=== PATIENT | female | born 1945 | race African-American/Black ===

== ENCOUNTER → 2016-10-15 | Outpatient (CLI) | payer OTHER, MEDICAID ==
[~2016-10-15] MED LIST: ACYCLOVIR800 MG PO; AMIODARONE HCL400 MG PO; APAP325 MG PO; ASPIR-LOW81 MG PO; CALCIUM 500 +1 EAC1 PO; CIPRO500 MG PO; CORDARONE150 MG/3 M PO; CORDARONE200 MG PO; COUMADIN3 M1 PO; DAILY VITAMINS1 TAB PO; DOCUSATE100 MG PO; DONNATAL1 TAB PO; ERGOCALCIFER50000 IU PO; FLEXERIL5 MG PO; HYDROCODONE BIT1 T11 PO; LASIX20 MG PO; LASIX40 MG PO; LEVAQUIN750 M1 PO; LIPITOR20 MG PO; LISINOPRIL1 GM MC; LISINOPRIL10 M1 PO; LISINOPRIL10 MG PO; LOPRESSOR25 MG PO; MUCINEX DM 30/61 TAB PO; MUCINEX ER600 MG PO; NASONEX0.05 MG/AC NAS; NORVASC5 MG PO; NOVOLOG 70/30 M10 ML SC; OYSTER SHELL CA1 TAB PO; PRAVACHOL40 MG PO; PREDNISONE10 MG PO; PRILOSEC20 MG PO; PROAIR HFA0.09 MG/AC INH; PROAIR HFA8.5 GM INH; PROTONIX40 MG PO; QVAR 80MCG/INH7.3 G1 INH; ROXICODONE5 MG PO; SPIRIVA RESPIMAT4 G1 IH; SPIRIVA18 MCG PO; STERAPRED DS10 MG PO; STOMACH PILL PO; SYMBICORT1 AE1 INH; VENTOLIN 02.5 MG/3 M INH; VENTOLIN H0.09 MG/AC INH; VICODIN 500 MG-1 TAB PO; VITAMIN D50000 I3 PO
== END | disposition home or self-care (01) ==
LOC: RAD 15:57
DX: I11.0 Hypertensive heart disease with heart failure (principal); I50.30 Unspecified diastolic (congestive) heart failure; R06.02 Shortness of breath; R60.0 Localized edema; R09.89 Other specified symptoms and signs involving the circulatory and respiratory systems; J43.9 Emphysema, unspecified; Z87.891 Personal history of nicotine dependence; I25.10 Atherosclerotic heart disease of native coronary artery without angina pectoris

== ENCOUNTER → 2016-10-25 | Outpatient (CLI) | payer OTHER, MEDICAID ==
--- NOTE | ~2016-10-25 | PF ---
[place], [place] PULMONARY FUNCTION TEST [id number] UNIT #: [id number] ROOM: DOCTOR: CHAITANYA HOOKER MD,ANGELIKA BIRTHDATE: [birth year] DOS: 10/25/2016 PULMONARY FUNCTION TEST The test was ordered by Tevin. HISTORY: The patient was recorded as 70 years old, outpatient, -G[place]ian female, height of 64 inches, weight of 180 pounds, BMI 30.8. The patient was noted with history of COPD and amiodarone treatment. Respiratory symptoms described dyspnea with exertion, nonproductive cough and frequent wheezing. 50 years a pack of tobacco use noted 1 pack of cigarettes per day that was discontinued 3 years ago. SPIROMETRY: The FVC was recorded 1.32 liters as 58% of the predicted value that was moderate to severely decreased. The FEV1 was recorded at 0.53 liters, 30% of predicted value, severely decreased. Partial improvement occurred post-bronchodilator test which would not be considered clinical improvement in the postbronchodilator test. The ratio of FEV1/FVC were recorded 42%. Flow volume loop suggestive of severe obstructive airway pattern. The patient could not perform the lung testing with the plethysmography with inability to follow the instructions for the test. The patient's lung diffusion recorded 17% without correction of carbon monoxide. Hemoglobin value markedly decreased. FINAL IMPRESSION: The test was noted with findings of COPD for this patient with severe reduction of the lung diffusion may be related to emphysema or other connective tissue disorder, other etiologies to be considered with clinical correlation advised. ANGELIKA TAVARES MD CM:PFREPORT:PULMONARY FUNCTION TEST 1221 [id number] ANGELIKA HOOKER MD
== END | disposition home or self-care (01) ==
LOC: CP 10:19
DX: J44.9 Chronic obstructive pulmonary disease, unspecified (principal); Z79.899 Other long term (current) drug therapy

== ENCOUNTER 2016-10-28 19:47 | Inpatient (IN) | payer OTHER, MEDICAID ==
[~2016-10-28] VITALS: Ht 162.5 cm; Wt 81.8 kg
--- NOTE | ~2016-10-28 | CON ---
[place], [place] REPORT OF CONSULTATION [id number] UNIT #: [id number] ROOM: 405 DOCTOR: SHILOH ECHOLS MD BIRTHDATE: [birth year] DOS: 10/29/2016 HISTORY OF PRESENT ILLNESS: This is a 70-year-old -[place] woman with a history of coronary artery disease and aortic valve stenosis. She had multivessel CABG and aortic valve replacement with a bioprosthetic valve in 2013. She also has significant COPD and had quit smoking about 5 years ago. She has diastolic heart failure, which is chronic, essential hypertension, GERD, hiatus hernia, hyperlipidemia, chronic anemia, and morbid obesity. She has never had a stroke, cancer or diabetes mellitus. She has chronic shortness of breath and uses oxygen all the time. In the last few weeks, her breathing had gotten worse. She had dose of furosemide was increased because of an increasing swelling of the legs, but has continued to deteriorate, so she was sent here by her primary care physician. She has not had any palpitations, chest pain or heaviness in the chest. There has not been any dizziness or loss of consciousness. Swelling in the legs is chronic, but has gotten worse recently. She has a very little cough. No fever or chills. She has difficulty breathing at night because of COPD. HOME MEDICATIONS: Include ProAir HFA, Symbicort, vitamin D, ferrous sulfate 325 mg daily, furosemide 20 mg daily, lisinopril 20 b.i.d., amiodarone 200 mg daily for atrial fibrillation, metoprolol 50 mg b.i.d., multivitamins, omeprazole 20 mg daily and Spiriva inhaler. PHYSICAL EXAMINATION: GENERAL: This reveals the patient who has oxygen on, she is very tachypneic and seemed to be exhausted. She is using accessory muscles of respiration. No fever or chills. There is no thyromegaly or finger clubbing. VITAL SIGNS: Pulse is regular at 60 beats per minute, blood pressure 110/50. NECK: JVP is normal. AJR is negative. No bruit in the neck is audible. CARDIOVASCULAR: Cardiac auscultation reveals grade 2/6 systolic murmur over the aortic area, it peaks early and second heart sound is easily appreciated. There are no murmurs over the apex. EXTREMITIES: She has 3+ bilateral pedal edema and 2+ pretibial edema. RESPIRATIONS: She has oxygen on and is tachypneic. Auscultation reveals a moderately diminished breath sounds with expiratory wheezes and prolonged expiratory phase. LABORATORY DATA: Chest x-ray demonstrated normal heart size and there appears to be left pleural effusion. No obvious pulmonary edema was identified. An ECG showed sinus bradycardia at 54 beats per minute and flattened T waves in chest leads. On admission, BUN was 29, creatinine 1.75, GFR was 35 mL/min. Potassium 4.1, magnesium 2.3. Serum albumin 3.5 g/dL. IMPRESSION: 1. Severe edema of the lower extremities. It is difficult to ascertain what [place], [place] REPORT OF CONSULTATION NAME: JEN GAN UNIT #: [id number] ROOM: [facility] DOCTOR: SHILOH ECHOLS MD BIRTHDATE: [birth year] actually is causing her edema. Her jugular venous pressure is normal and chest x-ray do not show any obvious pulmonary edema. Her serum albumin is fairly decent. Part of the swelling is due to because her legs have dangling down and history of sitting most of the time, but she may have diastolic heart failure. 2. Chronic obstructive pulmonary disease. This seems to be the main reason for her worsening of shortness of breath. 3. Coronary artery disease. This is asymptomatic. 4. Bioprosthetic aortic valve seems to be functioning normally, clinically at least. RECOMMENDATIONS: 1. I think larger dose of furosemide should be administered, while monitoring renal function and kidney function. 2. COPD treatment should be aggressive and she probably requires some steroid therapy. I thank you for this consult. SHILOH ECHOLS MD CM:CONSTR:REPORT OF CONSULTATION 1300 10/29/16 2156 interface
--- NOTE | ~2016-10-28 | PR ---
[place], [place] PROGRESS NOTE NAME: JEN GAN [facility] #: [id number] UNIT #: [id number] ROOM: 405 DOCTOR: WILY DICKERSON MD BIRTHDATE: [birth year] DOS: 11/02/2016 SUBJECTIVE: The patient was seen by Dr. Mejia yesterday. The patient appears to be hemodynamically stable. Blood pressure is stable. She is using 2 liters of oxygen now. Urine output is positive 1570 today. NECK: Supple, no elevated JVD. LUNGS: Diminished breath sounds. HEART: Sounds are regular. ABDOMEN: Obese. EXTREMITIES: Positive edema. LABORATORY DATA: Hemoglobin 10.6, hematocrit 35.8, BUN and creatinine is 36 and 1.6. IMPRESSION: The patient with probable diastolic heart failure. The patient seen by Dr. Mejia. Cardiac status appears to be stable. PLAN: Continue the present medications, but she did have strict I's and O's and ____ negative balance. Diuretic change has been documented and recommended by Dr. Mejia. The patient has cardiomyopathy also. The patient is already on atorvastatin, amiodarone, ondansetron. Continue those care, still has significant edema, diabetes mellitus, coronary artery disease stable, lower extremities negative for DVT. Continue diuretics with probable fluid restriction. WILY DICKERSON MD CM:PNTRANS 0723 0823 WILY DICKERSON MD 11/02/16 0824 interface
--- NOTE | ~2016-10-28 | PR ---
[place], [place] PROGRESS NOTE NAME: JEN GAN [facility] #: [id number] UNIT #: [id number] ROOM: 405 DOCTOR: SHILOH ECHOLS MD BIRTHDATE: [birth year] DOS: 11/01/2016 SUBJECTIVE: This patient was admitted with severe edema, marked shortness of breath and she probably had diastolic heart failure. She has been diagnosed with using IV loop diuretic and has done well. She does not have any shortness of breath now, although she is wearing oxygen. No wheezing or cough. The swelling of the legs had pretty much disappeared. She has walked with much less shortness of breath. PHYSICAL EXAMINATION: GENERAL: The patient is very pleasant, alert. VITAL SIGNS: Pulse is 56, blood pressure 117/55. NECK: JVP is normal. LUNGS: Breath sounds are much better with a few expiratory wheezing, but expiratory phase is no longer prolonged. She has 1+ bilateral pedal edema, but no pretibial edema, which was quite substantial when she was admitted. LABORATORY DATA: Creatinine has come down to 1.66 from 1.76 on admission. IMPRESSION: 1. This patient probably had diastolic heart failure, which is well compensated chronic obstructive pulmonary disease is under control. 2. Coronary artery disease is fine. 3. She had a normal functioning bioprosthetic aortic valve. PLAN: From cardiac standpoint, she may be discharged home, and I would like to see her in the office in a week or so. I would prefer to go home on torsemide/Demadex 40 mg every morning and chem 6 should be done within the next week or so. SHILOH ECHOLS MD CM:PNTRANS 1157 [id number] SHILOH ECHOLS MD 11/01/16 2254 interface
--- NOTE | ~2016-10-28 | EKG ---
[place], [place] ELECTROCARDIOGRAM REPORT NAME: JEN GAN UNIT #: [id number] ROOM: 405 DOCTOR: SHILOH ECHOLS MD BIRTHDATE: [birth year] DOS: 10/28/2016 TIME: 2039 hours. Sinus bradycardia at 54 beats per minute. Low voltage T waves in chest leads. An abnormal ECG. No previous tracing is available for comparison. SHILOH ECHOLS MD CM:EKGRPT:ELECTROCARDIOGRAM REPORT 1232 1528 SHILOH ECHOLS MD
[2016-10-28 19:50] VITALS: BP 157/65
[2016-10-28 20:48] LABS: BILIRUBIN NEGATIVE (NEGATIVE); BLOOD NEGATIVE (NEGATIVE); CLARITY SL CLOUDY (CLEAR); COLOR YELLOW (YELLOW); GLUCOSE NEGATIVE (NEGATIVE); KETONE NEGATIVE (NEGATIVE); LEUKO ESTERASE TRACE (NEGATIVE); NITRITE NEGATIVE (NEGATIVE); PROTEIN TRACE (NEGATIVE)
[2016-10-28 20:48] LABS: BASO # 0.1 10*3/uL (0.0-0.1); BASO % 0.7 % (0.0-1.0); EOS # 0.8 10*3/uL (0.0-0.4); EOS % 7.8 % (1.0-4.0); HEMATOCRIT 36.3 % (37.0-47.0); HEMOGLOBIN 10.9 g/dl (12.0-16.0); LYMPH # 1.8 10*3/uL (1.3-4.4); LYMPH % 17.4 % (27.0-41.0); MEAN PLATELET VOLUME 9.6 fl (9.6-12.3); MONO # 1.1 10*3/uL (0.1-1.0); MONO % 10.8 % (3.0-9.0); NEUT # 6.4 10*3/uL (2.3-7.9); NEUT % 63.1 % (47.0-73.0); PLATELET COUNT AUTOMATED 242 10*3/uL (130-400); RED BLOOD COUNT 4.54 10*6/uL (4.10-5.10); RED CELL DISTRI WIDTH 15.4 % (0-14.5); WHITE BLOOD COUNT 10.2 10*3/uL (4.8-10.8)
[2016-10-28 20:56] LABS: BACTERIA 2+; RBC 0-2 rbc/hpf (0-2); URINE REFLEX COMMENT YES (NO)
[2016-10-28 21:02] LABS: PROTHROMBIN TIME 10.7 SECONDS (9.0-12.4)
[2016-10-28 21:06] LABS: ALBUMIN 3.5 gm/dl (3.1-4.5); ALKALINE PHOSPHATASE 74 U/L (45-117); BILIRUBIN, TOTAL 0.3 mg/dl (0.2-1.0); BUN 29 mg/dl (7-24); CARBON DIOXIDE 32 mmol/L (21-32); CHLORIDE 103 mmol/L (98-107); EST GLOM FILT AFRICAN AMERICAN 35 ml/min; GLUCOSE 99 mg/dL (65-99); MAGNESIUM 2.3 mg/dL (1.5-2.1); POTASSIUM 4.1 mmol/L (3.5-5.1); SGOT/AST 27 IU/L (3-35); SGPT/ALT 25 U/L (12-78); SODIUM 146 mmol/L (136-145); TOTAL PROTEIN 7.5 gm/dL (6.4-8.2)
[2016-10-28 21:08] LABS: TROPONIN I < 0.015 ng/ml (<0.045)
[2016-10-28 21:58] VITALS: BP 153/57
[2016-10-28 22:15] VITALS: BP 153/57
[2016-10-28] MEDS ORDERED: FEROSUL325 MG PO (22:36)
[2016-10-29] VITALS: BP 150/60
[2016-10-29 00:46] LABS: CKMB 0.6 ng/ml (0.5-3.6); CPK 105 U/L (26-192)
[2016-10-29 00:47] LABS: TROPONIN I < 0.015 ng/ml (<0.045)
[2016-10-29 06:38] LABS: BASO # 0.1 10*3/uL (0.0-0.1); BASO % 0.6 % (0.0-1.0); EOS # 0.8 10*3/uL (0.0-0.4); EOS % 8.2 % (1.0-4.0); HEMATOCRIT 34.9 % (37.0-47.0); HEMOGLOBIN 10.3 g/dl (12.0-16.0); IG # 0.1 10*3/uL (0.0-0.1); LYMPH # 1.9 10*3/uL (1.3-4.4); LYMPH % 19.3 % (27.0-41.0); MEAN CELL VOLUME 81.2 fl (81.0-99.0); MEAN CORPUSCULAR HGB CONC 29.5 g/dl (33.0-37.0); MEAN PLATELET VOLUME 10.2 fl (9.6-12.3); MONO # 1.2 10*3/uL (0.1-1.0); MONO % 11.7 % (3.0-9.0); NEUT # 5.9 10*3/uL (2.3-7.9); NEUT % 59.7 % (47.0-73.0); PLATELET COUNT AUTOMATED 255 10*3/uL (130-400); RED CELL DISTRI WIDTH 15.5 % (0-14.5); WHITE BLOOD COUNT 9.9 10*3/uL (4.8-10.8)
[2016-10-29 06:40] LABS: CKMB 0.5 ng/ml (0.5-3.6); CPK 97 U/L (26-192)
[2016-10-29 06:41] LABS: TROPONIN I < 0.015 ng/ml (<0.045)
[2016-10-29 06:45] LABS: HEMOGLOBIN A1c 6.8 % (4.8-5.6)
[2016-10-29 07:00] LABS: ALBUMIN 3.3 gm/dl (3.1-4.5); BILIRUBIN, TOTAL 0.4 mg/dl (0.2-1.0); FREE T4 1.31 ng/dl (0.76-1.46); MAGNESIUM 2.3 mg/dL (1.5-2.1); PHOSPHOROUS 3.9 mg/dL (2.5-4.9); POTASSIUM 3.7 mmol/L (3.5-5.1); TOTAL PROTEIN 7.2 gm/dL (6.4-8.2)
[2016-10-29 07:05] LABS: THYROID STIM HORMONE (HS) 2.43 uIU/ml (0.358-4.75)
[2016-10-29 07:20] LABS: PROTHROMBIN TIME 10.7 SECONDS (9.0-12.4)
[2016-10-29 07:46] LABS: VITAMIN D, 25-HYDROXY 32.2 ng/mL (30-100)
[2016-10-29 07:48] LABS: FOLIC ACID > 24.00 ng/mL (>5.38)
[2016-10-29 08:00] VITALS: BP 110/50
[2016-10-29 12:00] VITALS: BP 110/50
[2016-10-29 16:00] VITALS: BP 144/73
[2016-10-29 20:00] VITALS: BP 113/52
[2016-10-30] VITALS: BP 136/57
[2016-10-30 07:15] LABS: HEMATOCRIT 32.7 % (37.0-47.0); HEMOGLOBIN 9.8 g/dl (12.0-16.0); MEAN CELL VOLUME 79.4 fl (81.0-99.0); MEAN CORPUSCULAR HGB 23.8 pg (27.0-31.0); MEAN PLATELET VOLUME 9.8 fl (9.6-12.3); PLATELET COUNT AUTOMATED 241 10*3/uL (130-400); RED BLOOD COUNT 4.12 10*6/uL (4.10-5.10); RED CELL DISTRI WIDTH 15.4 % (0-14.5)
[2016-10-30 07:41] LABS: LYMPHOCYTE # 0.9 10*3/uL (1.3-4.4); MICROCYTOSIS SLIGHT; NEUTROPHIL # 8.1 10*3/uL (2.3-7.9); NEUTROPHILS 90 % (47-73); PLATELET SUFFICIENCY NORMAL (NORMAL); POLYCHROMASIA SLIGHT; TOTAL CELLS COUNTED 100 #CELLS
[2016-10-30 07:42] LABS: POTASSIUM 3.9 mmol/L (3.5-5.1)
[2016-10-30 08:00] VITALS: BP 118/52
[2016-10-30 12:00] VITALS: BP 120/60
[2016-10-30 16:00] VITALS: BP 114/51
[2016-10-30 20:00] VITALS: BP 117/50
[2016-10-31] VITALS: BP 114/66
[2016-10-31 06:15] LABS: BASO % 0.1 % (0.0-1.0); HEMATOCRIT 34.2 % (37.0-47.0); HEMOGLOBIN 10.2 g/dl (12.0-16.0); IG # 0.1 10*3/uL (0.0-0.1); LYMPH # 1.8 10*3/uL (1.3-4.4); MEAN CORPUSCULAR HGB 24.2 pg (27.0-31.0); MEAN CORPUSCULAR HGB CONC 29.8 g/dl (33.0-37.0); MEAN PLATELET VOLUME 9.6 fl (9.6-12.3); MONO # 1.4 10*3/uL (0.1-1.0); MONO % 10.3 % (3.0-9.0); NEUT # 10.6 10*3/uL (2.3-7.9); PLATELET COUNT AUTOMATED 254 10*3/uL (130-400); RED BLOOD COUNT 4.22 10*6/uL (4.10-5.10); RED CELL DISTRI WIDTH 15.6 % (0-14.5); WHITE BLOOD COUNT 13.9 10*3/uL (4.8-10.8)
[2016-10-31 06:38] LABS: POTASSIUM 3.5 mmol/L (3.5-5.1)
[2016-10-31 08:00] VITALS: BP 112/48
[2016-10-31 12:00] VITALS: BP 99/50
[2016-10-31 16:00] VITALS: BP 103/52
[2016-10-31 20:00] VITALS: BP 107/57
[2016-11-01] VITALS: BP 137/50
[2016-11-01 06:15] LABS: BASO # 0.1 10*3/uL (0.0-0.1); BASO % 0.5 % (0.0-1.0); EOS # 0.3 10*3/uL (0.0-0.4); EOS % 2.4 % (1.0-4.0); HEMATOCRIT 35.8 % (37.0-47.0); HEMOGLOBIN 10.6 g/dl (12.0-16.0); IG # 0.1 10*3/uL (0.0-0.1); LYMPH # 2.6 10*3/uL (1.3-4.4); LYMPH % 24.2 % (27.0-41.0); MEAN CELL VOLUME 81.4 fl (81.0-99.0); MEAN CORPUSCULAR HGB 24.1 pg (27.0-31.0); MEAN CORPUSCULAR HGB CONC 29.6 g/dl (33.0-37.0); MEAN PLATELET VOLUME 9.1 fl (9.6-12.3); MONO % 9.7 % (3.0-9.0); NEUT # 6.6 10*3/uL (2.3-7.9); NEUT % 62.7 % (47.0-73.0); PLATELET COUNT AUTOMATED 241 10*3/uL (130-400); RED CELL DISTRI WIDTH 15.8 % (0-14.5); WHITE BLOOD COUNT 10.5 10*3/uL (4.8-10.8)
[2016-11-01 08:00] VITALS: BP 117/55
[2016-11-01 12:00] VITALS: BP 133/66
[2016-11-01 16:00] VITALS: BP 121/55
[2016-11-01 20:00] VITALS: BP 112/59
[2016-11-02] VITALS: BP 129/57
[2016-11-02 07:46] LABS: POTASSIUM 3.8 mmol/L (3.5-5.1)
[2016-11-02 07:53] VITALS: BP 118/71
[2016-11-02 11:50] VITALS: BP 104/54
[2016-11-02 15:57] VITALS: BP 116/51
[2016-11-02 20:00] VITALS: BP 114/58
[2016-11-03] VITALS: BP 120/59
[2016-11-03 06:07] LABS: POTASSIUM 3.8 mmol/L (3.5-5.1)
[2016-11-03 08:00] VITALS: BP 104/50
[2016-11-03] MEDS ORDERED: FUROSEMIDE40 MG PO (09:40)
[2016-11-03] MEDS ORDERED: LOPRESSOR25 MG PO (09:40)
== END 2016-11-03 10:56 | disposition home or self-care (01) | DRG 291 ==
LOC: ED 19:47 → EDHOLD 21:30 → 4E 21:30
PROVIDERS: Emergency Medicine; Hospitalist; Internal Medicine; Student in an Organized Health Care Education/Training Program
DX: I11.0 Hypertensive heart disease with heart failure (principal); N17.0 Acute kidney failure with tubular necrosis; E87.0 Hyperosmolality and hypernatremia; J96.10 Chronic respiratory failure, unspecified whether with hypoxia or hypercapnia; E44.1 Mild protein-calorie malnutrition; J44.1 Chronic obstructive pulmonary disease with (acute) exacerbation; I50.33 Acute on chronic diastolic (congestive) heart failure; E11.65 Type 2 diabetes mellitus with hyperglycemia; K21.9 Gastro-esophageal reflux disease without esophagitis; E83.41 Hypermagnesemia; I25.10 Atherosclerotic heart disease of native coronary artery without angina pectoris; E78.5 Hyperlipidemia, unspecified; E66.9 Obesity, unspecified; Z95.2 Presence of prosthetic heart valve; Z87.891 Personal history of nicotine dependence; Z80.42 Family history of malignant neoplasm of prostate; Z83.79 Family history of other diseases of the digestive system; Z79.51 Long term (current) use of inhaled steroids; Z79.82 Long term (current) use of aspirin; Z79.899 Other long term (current) drug therapy; Z68.30 Body mass index [BMI] 30.0-30.9, adult

== ENCOUNTER → 2016-12-16 | Outpatient (CLI) | payer OTHER, MEDICAID ==
[~2016-12-16] MED LIST changes: +FEROSUL325 MG PO; +FUROSEMIDE40 MG PO
== END | disposition home or self-care (01) ==
LOC: CT 09:09
DX: M79.602 Pain in left arm (principal)

== ENCOUNTER 2017-10-13 15:24 | Inpatient (IN) | payer OTHER, MEDICAID ==
[~2017-10-13] VITALS: Ht 165.1 cm; Wt 75.7 kg
--- NOTE | ~2017-10-13 | PROC NOTE ---
[place], [place] PROCEDURE NOTE [id number] UNIT #: [id number] ROOM: 502 DOCTOR: DANIEL MCKEON BIRTHDATE: [birth year] DOS: 10/14/2017 MODIFIED BARIUM SWALLOW STUDY DICTATED BY: AKOSUA Lazar, student services rep clinician and Daniel Morse MA, CCC, DENTURES LAB TECHNICIAN REFERRING PHYSICIAN: Dr. Acevedo. RADIOLOGIST: Dr. Hudson. PREVIOUS MEDICAL HISTORY: The patient is a 71-year-old female who was admitted to [facility] with weakness and shortness of breath on 10/13/2017. She was diagnosed with bilateral pneumonia. The patient's past medical history includes GERD, hiatal hernia, HTN, COPD, HLD, CHF and CKD. The patient was referred for an MBSS to rule out aspiration pneumonia. This date, patient denied difficulty swallowing. The patient did not endorse coughing or choking while eating. She noted she occasionally has emesis after eating. The patient endorsed reflux and noted she does not take her reflux medication consistently. GENERAL COMMENTS: The patient was seated upright in a wheelchair, awake, alert, and cooperative throughout this evaluation. ORAL MECHANISM/MOTOR SPEECH EXAM: Symmetry, strength, range of motion and accuracy of movement of upper/lower face, lips, jaw, tongue and palate were within functional limits. Coordination was mildly impaired; however, remained within functional limits. The patient with no upper dentition and minimal lower dentition. Speech comprehensibility was 100%. The patient presents with baseline cough. MBSS METHODS: This exam was viewed in the lateral plane. The patient self fed the following barium impregnated consistencies: single sips of thin liquids via straw x 2, consecutive sips of thin liquids via straw x 1, teaspoons of pureed x 2 and bites of coarse solids x 1. ORAL PHASE: Adequate bolus acceptance with no anterior loss. Mastication was prolonged, but adequate. AP bolus transit was timely and adequate. No oral residue appreciated. PHARYNGEAL PHASE: Initiation of the swallow response was mildly delayed. Higher laryngeal elevation was adequate in the superior and anterior planes with subsequent adequate epiglottic retroflexion. Base of tongue to posterior pharyngeal wall contact was adequate. No aspiration or penetration was observed with any consistency. Trace residue remained in the valleculae after the swallow; however, this cleared with subsequent swallows. UPPER ESOPHAGEAL SPHINCTER: Unremarkable. IMPRESSION: The patient presents with mild oropharyngeal dysphagia as marked by [place], [place] PROCEDURE NOTE NAME: JEN GAN UNIT #: [id number] ROOM: [facility] DOCTOR: DANIEL MCKEON BIRTHDATE: [birth year] slow mastication and mildly delayed swallow initiation; however swallow is within functional limits. No aspiration/penetration across consistencies. Due to dentition, a diet of mechanical soft foods with thin liquids is recommended correct. RECOMMENDATIONS: 1. Recommend diet of mechanical soft foods with thin liquids. 2. Aspiration precautions, fully upright, awake and alert for all p.o., small bites/sips, oral care at least b.i.d. 3. GERD management. Findings and recommendations were reviewed and discussed with the patient, patient's granddaughter and nurse. All parties verbalized understanding. PLAN OF CARE: No further speech language pathology followup is indicated at this time. Should further concerns of dysphagia arise, please reconsult this service. Thank you for consulting. Please contact the DENTURES LAB TECHNICIAN Department at [phone] with any questions/concerns. Daniel Morse CM:PROCNOTE:PROCEDURE NOTE 1021 1159 DANIEL MCKEON
--- NOTE | ~2017-10-13 | PR ---
[place], [place] PROGRESS NOTE [id number] UNIT #: [id number] ROOM: [facility] DOCTOR: WILY DICKERSON MD BIRTHDATE: [birth year] DOS: 10/18/[address] Mejia[address]. Hidalgo was video conference specialist for the weekend. REASON FOR CONSULTATION: Consultation was consulted for bradycardia. HISTORY OF PRESENT ILLNESS: The patient's beta-blockers have been discontinued. The patient has history of bypass surgery and valve replacement in the past. After stopping the beta-blockers, the patient has not been bradycardic. PHYSICAL EXAMINATION: VITAL SIGNS: Heart rate is 69 and blood pressure is 137/67. The patient continues to be on amiodarone. HEENT: Unremarkable. NECK: Supple. No JVD. LUNGS: Diminished breath sounds. HEART: Sounds are regular. ABDOMEN: Soft. Nontender. NEUROLOGIC: Appears to be stable. LABORATORY DATA: Sodium 143 and potassium 3.2. BUN is 32 and creatinine is 1.3. Hemoglobin 10.8 and hematocrit 35.8. A CT scan showed cardiomegaly, emphysematous changes, and hiatal hernia. IMPRESSION: 1. Bilateral pneumonia. 2. Sinus bradycardia. 3. Chronic obstructive pulmonary disease. 4. Acute on chronic respiratory failure. 5. Known history of coronary artery bypass surgery. RECOMMENDATIONS: Agree with continuing amiodarone and holding off on the beta-blockers at this point. Continue the present medication. Follow up with Dr. Mejia. [place], [place] PROGRESS NOTE NAME: [facility] [id number] UNIT #: [id number] ROOM: [facility] DOCTOR: WILY DICKERSON MD BIRTHDATE: [birth year] WILY DICKERSON MD CM:PNTRANS 0730 0757 WILY DICKERSNO MD 10/18/17 0756 interface
[~2017-10-13 15:24] MED LIST changes: -PROAIR HFA0.09 MG/AC INH
[2017-10-13 15:25] VITALS: BP 136/70
[2017-10-13 16:17] LABS: BASO % 0.4 % (0.0-1.0); EOS # 0.2 10*3/uL (0.0-0.4); EOS % 1.7 % (1.0-4.0); HEMATOCRIT 39.7 % (37.0-47.0); HEMOGLOBIN 11.9 g/dl (12.0-16.0); LYMPH # 1.7 10*3/uL (1.3-4.4); LYMPH % 17.1 % (27.0-41.0); MEAN CELL VOLUME 77.2 fl (81.0-99.0); MEAN CORPUSCULAR HGB 23.2 pg (27.0-31.0); MEAN PLATELET VOLUME 9.1 fl (9.6-12.3); MONO # 1.1 10*3/uL (0.1-1.0); MONO % 10.6 % (3.0-9.0); NEUT # 6.9 10*3/uL (2.3-7.9); NEUT % 69.7 % (47.0-73.0); PLATELET COUNT AUTOMATED 277 10*3/uL (130-400); RED BLOOD COUNT 5.14 10*6/uL (4.10-5.10); RED CELL DISTRI WIDTH 16.9 % (0-14.5); WHITE BLOOD COUNT 9.9 10*3/uL (4.8-10.8)
[2017-10-13] MEDS ORDERED: METOPROLOL SUCC50 M1 PO (16:19)
[2017-10-13] MEDS ORDERED: LASIX20 MG PO (16:19)
[2017-10-13 16:26] LABS: ACT PARTIAL THROMBO TIME 25.1 SECONDS (20.8-31.5); INTERNATIONAL NORM RATIO 1.1 (2.0-3.5)
[2017-10-13 16:41] LABS: CREATININE 1.3 mg/dL (0.55-1.02); POTASSIUM 4.2 mmol/L (3.5-5.1)
[2017-10-13 16:45] LABS: TROPONIN I 0.029 ng/ml (<0.045)
[2017-10-13 16:48] LABS: THYROID STIM HORMONE (HS) 1.6 uIU/ml (0.358-4.75)
[2017-10-13 18:00] VITALS: BP 127/64
[2017-10-13] MEDS ORDERED: METOPROLOL TART50 M1 PO (18:23)
[2017-10-13] MEDS ORDERED: LISINOPRIL20 MG PO (18:23)
[2017-10-13] MEDS ORDERED: VITAMIN D-32000 UNIT PO (18:24)
[2017-10-13] MEDS ORDERED: ACULAR 3ML 3 ML5 ML OPH (18:34)
[2017-10-13 20:00] VITALS: BP 155/69
[2017-10-14] VITALS (8 sets, daily range): BP systolic 109–158; BP diastolic 49–85
[2017-10-14 06:25] LABS: BASO % 0.4 % (0.0-1.0); EOS # 0.2 10*3/uL (0.0-0.4); HEMATOCRIT 37.3 % (37.0-47.0); HEMOGLOBIN 11.3 g/dl (12.0-16.0); LYMPH # 1.8 10*3/uL (1.3-4.4); LYMPH % 17.7 % (27.0-41.0); MEAN CELL VOLUME 77.5 fl (81.0-99.0); MEAN CORPUSCULAR HGB 23.5 pg (27.0-31.0); MEAN CORPUSCULAR HGB CONC 30.3 g/dl (33.0-37.0); MEAN PLATELET VOLUME 9.8 fl (9.6-12.3); MONO # 1.2 10*3/uL (0.1-1.0); MONO % 11.6 % (3.0-9.0); NEUT # 7.1 10*3/uL (2.3-7.9); NEUT % 67.9 % (47.0-73.0); PLATELET COUNT AUTOMATED 251 10*3/uL (130-400); RED BLOOD COUNT 4.81 10*6/uL (4.10-5.10); RED CELL DISTRI WIDTH 16.7 % (0-14.5); WHITE BLOOD COUNT 10.4 10*3/uL (4.8-10.8)
[2017-10-14 07:01] LABS: ALBUMIN 2.8 gm/dl (3.1-4.5); CREATININE 1.39 mg/dL (0.55-1.02); PHOSPHOROUS 3.5 mg/dL (2.5-4.9); POTASSIUM 4.2 mmol/L (3.5-5.1); TOTAL PROTEIN 7.6 gm/dL (6.4-8.2)
[2017-10-15] VITALS: BP 130/69
[2017-10-15 07:50] LABS: BASO % 0.1 % (0.0-1.0); HEMATOCRIT 35.7 % (37.0-47.0); HEMOGLOBIN 10.9 g/dl (12.0-16.0); LYMPH # 1.1 10*3/uL (1.3-4.4); LYMPH % 13.3 % (27.0-41.0); MEAN CELL VOLUME 76.4 fl (81.0-99.0); MEAN CORPUSCULAR HGB 23.3 pg (27.0-31.0); MEAN CORPUSCULAR HGB CONC 30.5 g/dl (33.0-37.0); MEAN PLATELET VOLUME 9.8 fl (9.6-12.3); MONO # 0.7 10*3/uL (0.1-1.0); MONO % 8.7 % (3.0-9.0); NEUT # 6.2 10*3/uL (2.3-7.9); NEUT % 77.4 % (47.0-73.0); PLATELET COUNT AUTOMATED 251 10*3/uL (130-400); RED BLOOD COUNT 4.67 10*6/uL (4.10-5.10); RED CELL DISTRI WIDTH 16.7 % (0-14.5)
[2017-10-15 08:00] VITALS: BP 114/52
[2017-10-15 08:11] LABS: CREATININE 1.45 mg/dL (0.55-1.02); POTASSIUM 3.8 mmol/L (3.5-5.1)
[2017-10-15 12:00] VITALS: BP 139/64
[2017-10-15 16:00] VITALS: BP 127/59
[2017-10-15 20:00] VITALS: BP 124/95
[2017-10-16] VITALS: BP 123/73
[2017-10-16 08:00] VITALS: BP 146/59
[2017-10-16 13:00] VITALS: BP 114/54
[2017-10-16 16:00] VITALS: BP 134/62
[2017-10-16 20:00] VITALS: BP 131/58
[2017-10-17] VITALS: BP 131/61
[2017-10-17 06:42] LABS: BASO % 0.1 % (0.0-1.0); HEMATOCRIT 35.8 % (37.0-47.0); HEMOGLOBIN 10.8 g/dl (12.0-16.0); LYMPH # 1.6 10*3/uL (1.3-4.4); LYMPH % 12.8 % (27.0-41.0); MEAN CELL VOLUME 76.7 fl (81.0-99.0); MEAN CORPUSCULAR HGB 23.1 pg (27.0-31.0); MEAN CORPUSCULAR HGB CONC 30.2 g/dl (33.0-37.0); MEAN PLATELET VOLUME 9.1 fl (9.6-12.3); MONO # 1.4 10*3/uL (0.1-1.0); MONO % 10.8 % (3.0-9.0); NEUT # 9.7 10*3/uL (2.3-7.9); NEUT % 75.8 % (47.0-73.0); PLATELET COUNT AUTOMATED 235 10*3/uL (130-400); RED BLOOD COUNT 4.67 10*6/uL (4.10-5.10); RED CELL DISTRI WIDTH 17.3 % (0-14.5); WHITE BLOOD COUNT 12.7 10*3/uL (4.8-10.8)
[2017-10-17 06:47] LABS: CREATININE 1.38 mg/dL (0.55-1.02); POTASSIUM 3.2 mmol/L (3.5-5.1)
[2017-10-17 08:00] VITALS: BP 136/50
[2017-10-17 12:00] VITALS: BP 136/52
[2017-10-17 16:00] VITALS: BP 139/59
[2017-10-17 20:00] VITALS: BP 129/56
[2017-10-18] VITALS: BP 137/67
[2017-10-18 08:00] VITALS: BP 119/52
[2017-10-18 12:00] VITALS: BP 135/66
[2017-10-18] MEDS ORDERED: DOXYCYCLINE100 M3 PO (13:28)
== END 2017-10-18 15:37 | disposition home health service (06) | DRG 193 ==
LOC: ED 15:24 → 5E 16:51 → EDHOLD 16:51 → 5E 17:42
PROVIDERS: Emergency Medicine; Family Medicine; Internal Medicine
PROC: BD1BYZZ Fluoroscopy of Mouth/Oropharynx using Other Contrast (ICD-10-PCS; principal; 2017-10-14)
PROC: BD11YZZ Fluoroscopy of Esophagus using Other Contrast (ICD-10-PCS; principal; 2017-10-14)
DX: J18.1 Lobar pneumonia, unspecified organism (principal); G93.41 Metabolic encephalopathy; J96.21 Acute and chronic respiratory failure with hypoxia; E44.0 Moderate protein-calorie malnutrition; I38 Endocarditis, valve unspecified; E11.22 Type 2 diabetes mellitus with diabetic chronic kidney disease; E87.8 Other disorders of electrolyte and fluid balance, not elsewhere classified; E83.41 Hypermagnesemia; I50.32 Chronic diastolic (congestive) heart failure; J44.1 Chronic obstructive pulmonary disease with (acute) exacerbation; I13.0 Hypertensive heart and chronic kidney disease with heart failure and stage 1 through stage 4 chronic kidney disease, or unspecified chronic kidney disease; J44.0 Chronic obstructive pulmonary disease with (acute) lower respiratory infection; N18.3 Chronic kidney disease, stage 3 (moderate); K21.9 Gastro-esophageal reflux disease without esophagitis; I25.10 Atherosclerotic heart disease of native coronary artery without angina pectoris; E66.9 Obesity, unspecified; R00.1 Bradycardia, unspecified; D50.9 Iron deficiency anemia, unspecified; F32.9 Major depressive disorder, single episode, unspecified; E78.2 Mixed hyperlipidemia; D72.810 Lymphocytopenia; Z68.26 Body mass index [BMI] 26.0-26.9, adult; Z83.79 Family history of other diseases of the digestive system; Z87.891 Personal history of nicotine dependence; K44.9 Diaphragmatic hernia without obstruction or gangrene; Z95.1 Presence of aortocoronary bypass graft; Z80.42 Family history of malignant neoplasm of prostate; Z88.5 Allergy status to narcotic agent; Z99.81 Dependence on supplemental oxygen

== ENCOUNTER 2017-10-20 12:07 | Inpatient (IN) | payer OTHER, MEDICAID ==
[~2017-10-20] VITALS: Ht 165.1 cm; Wt 75.0 kg
--- NOTE | ~2017-10-20 | PR ---
[place], [place] PROGRESS NOTE [id number] UNIT #: [id number] ROOM: 408 DOCTOR: WILY DICKERSON MD BIRTHDATE: [birth year] DOS: 10/25/2017 SUBJECTIVE: The patient is seen and evaluated today, awake, responsive and no nausea, no vomiting, diarrhea, lightheadedness or dizziness. He is in sinus rhythm. Hemodynamically stable. Echocardiogram read by Dr. Mejia showed an excellent ejection fraction, normal functioning bioprosthetic aortic valve. OBJECTIVE: VITAL SIGNS: Blood pressure today is 140/60, heart rate is 63. He is afebrile. HEENT: Unremarkable. NECK: Supple, no JVD. LUNGS: Diminished breath sounds. HEART: Sounds are regular. ABDOMEN: Soft, nontender. NEUROLOGIC: Stable. LABORATORY DATA: Significant improvement as per HPI, 6-8 systems reviewed. Last electrolytes are normal. Creatinine is normal, hemoglobin and hematocrit within 10.6 and 34.3. IMPRESSION AND PLAN: Acute on chronic respiratory failure, unable to ambulate, leukocytosis, neutrophilia, lymphopenia, hyperchloremia, acute on chronic kidney failure, COPD, coronary artery disease at the jena arteries, ____ type 2 myocardial infarction with mildly elevated troponin. Continue recommendation, continue the steroids, vancomycin, Zosyn, and Levaquin and the patient has been started back on the Lasix, breathing is significantly improved and monitor the renal function closely. Dr. Arnold is closely following. Elevated white cell count is normal of 11.6 and we will follow up. WILY DICKERSON MD CM:PNTRANS 0728 WILY DICKERSON MD 10/25/1715 interface
--- NOTE | ~2017-10-20 | PROC NOTE ---
[place], [place] PROCEDURE NOTE NAME: [id number] UNIT #: [id number] ROOM: 408 DOCTOR: CHAITANYA HOOKER MD,ANGELIKA BIRTHDATE: [birth year] DOS: 10/25/2017 PREOPERATIVE DIAGNOSES: Bilateral pulmonary infiltration noted with interstitial lung disease as well with non-specific interstitial pneumonitis, possibility of a cellular component. POSTOPERATIVE DIAGNOSES: Bilateral pulmonary infiltration noted with interstitial lung disease as well with non-specific interstitial pneumonitis, possibility of a cellular component. PROCEDURE DESCRIPTION: Informed consent obtained with the patient. She was brought to the OR and placed in supine position. Conscious sedation administered by the Anesthesia Department. After achieving proper sedation, airway introduced into the mouth. Bronchoscope advanced to the airway into laryngeal area. Epiglottis and vocal cord seen. Vocal cord moving symmetrically with movements. Bronchoscope advanced to vocal and tracheal lumen. A small amount of scattered secretions present in the tracheal lumen, which was suctioned out. Right upper, right middle, right lower, left upper, lingular lower bronchi were all examined. It does not show any blood stick lesions or significant secretions. The BAL specimen was obtained for this patient from the superior segment of the right lower lobe without any difficulty. Additional bronchial washing taken from the endobronchial tree bilaterally was sent to the lab as well. The BAL specimen sent for cell with the differentials. Procedure well tolerated without any complications. ANGELIKA TAVARES MD CM:PROCNOTE:PROCEDURE NOTE 1057 0010 ANGELIKA HOOKER MD
--- NOTE | ~2017-10-20 | PR ---
[place], [place] PROGRESS NOTE NAME: JEN GAN UNIT #: [id number] ROOM: 408 DOCTOR: ANGELIKA DAIGLE MD BIRTHDATE: [birth year] DOS: 10/22/2017 SUBJECTIVE: The patient noted comfortable at this time without any acute distress, resting comfortably on the bed, has not been reported as symptoms of any chest pain or abdominal pain. The patient has not been noted any symptoms of hemoptysis, coughing, shortness of breath, all the symptoms have been improving for the patient from yesterday. She has been continued on the bronchodilators as well as oxygen supplementation. Solu-Medrol was continued at 40 mg b.i.d. dosing. OBJECTIVE: VITAL SIGNS: Normal temperature, respiratory rate 20, heart rate 90, blood pressure 130/60, pulse oxygen saturation on 4 liters nasal cannula 96% saturation. HEENT: No acute change. NECK: Supple. CARDIOVASCULAR: S1, S2 audible. LUNGS: Scattered expiratory wheezing. There were no crackles. ABDOMEN: Soft, nontender. Bowel sounds present. EXTREMITIES: Without any acute edema. LABORATORY DATA: BMP for this patient, BUN 37, creatinine 1.48, glucose 153. The CBC of the patient, hemoglobin 10.4, hematocrit was 34 with normal WBC count and platelet count. Blood culture, no bacterial growth from the 10/20/2017. IMPRESSION: 1. The patient who has been currently noted with an acute on chronic hypoxic respiratory failure, acute exacerbation of chronic obstructive pulmonary disease that has been improving. 2. ____ findings are noted on the CT scan of the chest at this time, etiology unclear. 3. Resolving acute kidney injury for the patient with chronic kidney disease. 4. Anemia. PLAN OF TREATMENT: Followup of the workup of the patient with connective tissue disorder as ordered. Continue current dose of Solu-Medrol, bronchodilators and oxygen supplementation and other treatments. The EGD for the patient was not noted with any evidence of active bleeding, which was performed yesterday. [place], [place] PROGRESS NOTE NAME: JEN GAN UNIT #: [id number] ROOM: 408 DOCTOR: ANGELIKA DAIGLE MD BIRTHDATE: [birth year] ANGELIKA TAVARES MD CM:PNTRANS 1433 011 ANGELIKA HOOKER MD 10/23/17 0111 interface
--- NOTE | ~2017-10-20 | EKG ---
[place], [place] ELECTROCARDIOGRAM REPORT NAME: JEN GAN UNIT #: [id number] ROOM: 408 DOCTOR: SHILOH ECHOLS MD BIRTHDATE: [birth year] DOS: 10/20/2017 TIME: 1241 hours. FINDINGS: 1. Normal sinus rhythm at 62 beats per minute. 2. Moderate left axis deviation. 3. Possible old inferior wall [place]. 4. Left ventricular hypertrophy with repolarization abnormality. 5. Nonspecific T-wave changes in most chest leads. 6. An abnormal ECG. 7. No previous tracing is available for comparison. SHILOH EHCOLS MD CM:EKGRPT:ELECTROCARDIOGRAM REPORT 1641 1755 SHILOH ECHOLS MD
--- NOTE | ~2017-10-20 | PR ---
[place], [place] PROGRESS NOTE NAME: JEN GAN UNIT #: [id number] ROOM: 408 DOCTOR: ANGELIKA DAIGLE MD BIRTHDATE: [birth year] DOS: 10/23/2017 PULMONARY PROGRESS NOTE SUBJECTIVE: The patient noted comfortable at this time, resting on the bed. Denies symptoms of chest pain or any abdominal pain. She has been showing gradual reduction and improvement in the respiratory status with patient progressively. Denies symptoms of hemoptysis. The general weakness was still noted, shortness of breath occurs with exertion. OBJECTIVE: VITAL SIGNS: For the patient, which was recorded shows the temperature noted as normal, respiratory rate 18, heart rate 67, blood pressure 154/71, 134/64. Pulse oxygen saturation on 4 liters 92% saturation. HEENT: No acute change. NECK: Supple. CARDIOVASCULAR: S1, S2 audible. LUNGS: Noted without any wheezing or crackles at present time. The breath sounds noted mildly decreased. Scattered expiratory wheezing. ABDOMEN: Soft, nontender. EXTREMITIES: Without any acute edema. LABORATORY DATA: BMP today: BUN 32, creatinine 1.31, and glucose 140. CBC of the patient noted as hemoglobin 10.1 and hematocrit 33.4. IMPRESSION: 1..Gradual and progressive resolution of acute exacerbation of chronic obstructive pulmonary disease was noted. 2. Resolving acute kidney injury progressively. 3. Oral debility still persisted. PLAN OF TREATMENT: Decrease the Solu-Medrol dose to 40 mg daily from today. Monitor respiratory symptom. Continue other therapy, plan of management as well as progress. Usual care. Additional treatment changes to be made for the patient based on the progression of the illness. The patient was also noted with the nonspecific interstitial infiltration of the lung at this time, which continued to be monitored and treated for acute pneumonia. Obtain another chest x-ray, PA lateral view in the morning to reassess the progression of those infiltration. [place], [place] PROGRESS NOTE NAME: JEN GAN UNIT #: [id number] ROOM: 408 DOCTOR: ANGELIKA DAIGLE MD BIRTHDATE: [birth year] ANGELIKA TAVARES MD CM:PNTRANS 1342 ANGELIKA HOOKER MD 10/23/17 1825 interface
--- NOTE | ~2017-10-20 | CON ---
[place], [place] REPORT OF CONSULTATION NAME: JEN GAN UNIT #: [id number] ROOM: 408 DOCTOR: SHERRILL HUTTONMANUELA BIRTHDATE: [birth year] DOS: 10/21/2017 GASTROENDOSCOPIC REPORT HISTORY OF PRESENT ILLNESS: This is 71-year-old patient who has presented with chief complaint of anorexia, early satiety, periodic emesis. The patient had to be admitted for definitive evaluation. The patient has recently pulmonic infiltrate, which has been managed. PAST MEDICAL HISTORY: Associated hypertension, congestive heart failure, chronic kidney disease, hyperlipidemia, chronic obstructive pulmonary disease, microcytic anemia, valvular heart disease. PAST SURGICAL HISTORY: Triple vessel bypass, aortic valve prosthesis, and cataract. SOCIAL HISTORY: Nonsmoker, nonalcohol consumer. FAMILY HISTORY: Noncontributory. REVIEW OF SYSTEMS: HEENT: Denies double vision, blurred vision. RESPIRATORY: Denies acute shortness of breath. However, chronically short of breath. CARDIOVASCULAR: Denies chest pain. DIGESTIVE SYSTEM: Nausea, vomiting, dyspepsia, reflux symptomatology. PHYSICAL EXAMINATION: HEENT: Head normocephalic, nontraumatic. Mouth and buccal mucosa benign. No aphthae ulceration. NECK: Supple, no thyromegaly, no cervical lymphadenopathy. CHEST: Symmetric anatomy, equal expansion, COPD characteristics, decreased air entry. HEART: Normal sinus rhythm, no gallop, no murmur. ABDOMEN: Soft. No hepato-organomegaly. Bowel sounds present. No pulsatile mass. EXTREMITIES: No cyanosis, no pedal edema. NEUROLOGIC: Alert and oriented to time, place, person. LABORATORY DATA: Records reviewed. Her troponins were normal. Her CBC: H and H of 11 and 33. Microcytic noticed, modified barium swallow. She has passed that test and this is her recent admission, her labs on records reassessed. IMPRESSION: Early satiety ruling out multiple reasons pathological or anatomical causes all has been kept in mind, I believe that we have to sort out this issue through endoscopy and this is going to be organized. OTHER ADJUNCTIVE DIAGNOSES: As outlined in paragraph of past medical, surgical history. [place], [place] REPORT OF CONSULTATION NAME: JEN GAN UNIT #: [id number] ROOM: 408 DOCTOR: SHERRILL HUTTON,MANUELA BIRTHDATE: [birth year] MANUELA MCCARTNEY MD CM:CONSTR:REPORT OF CONSULTATION 1556 10/22/17 0153 interface
--- NOTE | ~2017-10-20 | PR ---
[place], [place] PROGRESS NOTE NAME: JEN GAN UNIT #: [id number] ROOM: [facility] DOCTOR: CHAITANYA HOOKER MD,ANGELIKA BIRTHDATE: [birth year] DOS: 10/25/2017 SUBJECTIVE: The patient with symptoms of cough. There were no symptoms of chest pain or hemoptysis reported. Denies symptoms of nausea, vomiting, diarrhea. She was continued on intravenous corticosteroids, bronchodilators, and antibiotics. N.p.o. past midnight status was noted. Bronchoscopy to be done today. She has not been noted with symptoms of nausea, vomiting, abdominal pain, hematemesis, melena, hematochezia or dysuria. Remaining systems were reviewed. They were noted all negative. OBJECTIVE: VITAL SIGNS: For the patient this morning, normal temperature, respiratory rate 15, heart rate 74, blood pressure 147/67. The pulse oxygen saturation on 3-4 liters nasal cannula is 95% saturation. HEENT: Shows head was atraumatic. Eyes nonicterus. NECK: Supple. CARDIOVASCULAR: S1, S2 audible. LUNGS: Noted with [id number] decreased breath sounds without any wheezing. Decreased breath sounds are noted in the lungs bilaterally. No crackles. ABDOMEN: Soft, nontender. EXTREMITIES: Without edema. VISIBLE SKIN: No lesions or rashes. MUSCULOSKELETAL SYMPTOMS: Without any acute deformity. LABORATORY DATA: CMP today; BUN 21, creatinine 1.12. Remaining CMP in general normal. The CBC today; WBC count 14,000, hemoglobin 11.5, hematocrit normal, platelet count was normal. IMPRESSION: 1. Bilateral interstitial infiltration in the lung was noted with acute exacerbation of chronic obstructive pulmonary disease, acute bronchitis, evidence of significant apparent lobular emphysema changes were also noted on the previous CT scan of the chest. 2. Previous history of nicotine abuse. PLAN OF MANAGEMENT: Proceed with bronchoscopy for further assessment of the current pulmonary abnormalities. Bronchial washing will be done and the BAL specimen will be obtained for the patient from the superior segment of the right lower lobe based on the current CT scan of the chest assessment. In the meantime, continue other treatment therapy, plan of management and care plan. Usual treatment. Supportive care. [place], [place] PROGRESS NOTE NAME: JEN GAN UNIT #: [id number] ROOM: 408 DOCTOR: ANGELIKA DAIGLE MD BIRTHDATE: [birth year] ANGELIKA TAVARES MD CM:PNTRANS [phone] ANGELIKA HOOKER MD 10/25/17 235 interface
--- NOTE | ~2017-10-20 | O ---
[place], [place] OPERATIVE NOTE [id number] UNIT #: [id number] ROOM: 408 DOCTOR: SHERRILL HUTTON,MANUELA BIRTHDATE: [birth year] DOS: 10/21/2017 INDICATIONS: The patient has presented with early satiety, epigastric distress, borderline anemia, cardiovascular and pulmonary issues that are being addressed by primary team. PROCEDURE: Today's procedure part of investigation is panendoscopy plus biopsy. PREMEDICATION: Versed and Diprivan. SCOPE: Olympus forward-viewing gastroscope Q10 video. REPORT: After putting the patient in left lateral position and application of lubricant to the scope, the scope was introduced. Thereafter, under direct visualization, advanced through the length of esophagus without difficulty. Gastric pouch was entered. There is a herniation of the cardia of the stomach. It looks to be above the diaphragm and makes me wonder if this is a paraesophageal herniation. On the other hand, the stomach is axially rotated and therefore the axis of food directly to pyloric ring is hindered with this anatomical compromise of hernia formation. Evidence of gastritis also noticed. Duodenal bulb, second and third part within normal limits. After biopsies, the patient extubated, tolerated procedure well. IMPRESSION: Ruling out paraesophageal hernia, gastritis, ruling out hiatal hernia. PLAN AND DISCUSSION: We are going to keep her chronically on Protonix 40 mg daily. Softer food would help and ambulation after meals would assist in negotiation of food particles into the gastric pouch toward the antrum. She is not a candidate for surgical repair, supportive management therefore. MANUELA MCCARTNEY MD CM:OPRECORD:OPERATIVE NOTE [phone] MANUELA MCCARTNEY MD 10/22/17 0155 interface
--- NOTE | ~2017-10-20 | PR ---
[place], [place] PROGRESS NOTE NAME: JEN GAN [facility] #: [id number] UNIT #: [id number] ROOM: 408 DOCTOR: CHAITANYA HOOKER MD,ANGELIKA BIRTHDATE: [birth year] DOS: 10/24/2017 SUBJECTIVE: She was still noted significant coughing. The patient remains unchanged. Denies symptoms of nausea, vomiting. The patient was noted with wheezing intermittently as well. Denies symptoms of hemoptysis or any chest pain. The patient was denied any symptoms of headache or diplopia. Denies symptoms of hematuria. REVIEW OF SYSTEMS: Remaining systems were reviewed with the patient, they were noted all negative. OBJECTIVE: VITAL SIGNS: For the patient which have been recorded shows the temperature noted as normal. The respiratory rate 20, heart rate of 67 to 76, blood pressure 154/90-162/88. Pulse oxygen saturation on 3 liters to 4 liter nasal cannula was ranged between 91% to 94% saturation. HEENT: Examination shows head was atraumatic. Eyes nonicterus. NECK: Supple. CARDIOVASCULAR: S1, S2 audible. LUNGS: Noted without any new changes. Crackles of the lung were noted scattered in the lungs. The patient with expiratory wheezing. ABDOMEN: Soft, nontender. EXTREMITIES: Without any acute edema, visible skin lesions or rashes. MUSCULOSKELETAL SYMPTOMS: Without any acute deformities. LABORATORY DATA: BMP today showed BUN 25, creatinine 1.06. CBC of the patient this morning, WBC count 11.6, hemoglobin 10.6, platelet count 154,000. The chest x-ray 2, which was obtained today was personally reviewed for the back images shows bilateral pulmonary infiltration noted with possibility of superimposed congestive heart failure cannot be excluded. IMPRESSION: The patient was noted with pulmonary infiltration, which are noted bilaterally, nonspecific interstitial pneumonitis various etiologies has been considered. Possibility of superimposed congestive heart failure. The patient has been considered as well. PLAN OF MANAGEMENT: The patient will be ordered Lasix, which will be given 40 mg daily at this time starting today. The potassium supplementation will also be given for this patient orally as well ____ BMP. She was also assessed for the bronchoscopy, specimen obtained because of the current persistent bilateral pulmonary infiltration. Other supportive therapy, plan of management as well with additional treatment changes to be made for this patient based on progression of the illnesses. Risk and the benefits of the bronchoscopy has been discussed with the patient in detail and the patient was agreeable for the procedure. Monitoring was also ordered for the patient to assess the kidney function, BUN and creatinine because use of the daily Lasix. [place], [place] PROGRESS NOTE NAME: JEN GAN UNIT #: [id number] ROOM: [facility] DOCTOR: ANGELIKA DAIGLE MD BIRTHDATE: [birth year] ANGELIKA TAVARES MD CM:PNTRANS [phone] ANGELIKA HOOKER MD 10/25/17 0137 interface
--- NOTE | ~2017-10-20 | CON ---
[place], [place] REPORT OF CONSULTATION NAME: JEN GAN [facility] #: [id number] UNIT #: [id number] ROOM: 408 DOCTOR: CHAITANYA HOOKER MDANGELIKA BIRTHDATE: [birth year] DOS: 10/21/2017 PULMONARY CONSULTATION, EVALUATION AND MANAGEMENT REASON FOR CONSULTATION: Assess the patient for diagnosis of pneumonia with exacerbation of COPD. HISTORY OF PRESENT ILLNESS: A 71-year-old -[place] Citizen female patient who has been known to me from the past with history of COPD. The patient presented to the hospital on 10/20/2017. She has recently been treated in the hospital and managed for acute exacerbation of chronic obstructive pulmonary disease with acute bronchitis as well as pneumonia reported for 5 days. The patient remained in hospital from 10/13/2017 and discharged home on 10/18/2017. Per granddaughter of this patient, the patient has been receiving the physical therapy at home, noted with significant oxygen desaturation, inability to resolve the hypoxia. She was brought to the hospital for further assessment. She has been reported symptoms of shortness of breath that has been noted persistent at this time occur with [id number] exertion. She does have symptoms of cough associated with that which were noted nonproductive. She was also reported symptoms of wheezing and tightness in the chest. She does not have symptoms of chest pain with that. She had been readmitted to the hospital, currently being managed for the patient with general weakness, fatigue as well as pneumonia and other diseases. REVIEW OF SYSTEMS: CONSTITUTIONAL: Fatigue and tiredness noted without any symptoms of fever or chills. EYES: Denies burning, redness, or tenderness. EARS, NOSE, THROAT SYMPTOMS: Denies sore throat, hoarseness, otalgia, postnasal drainage or epistaxis. CARDIOVASCULAR: Denies angina pain, edema or pain of lower extremity. GASTROINTESTINAL: Dysphagia, nausea, vomiting, diarrhea, abdominal pain, hematemesis, melena, or hematochezia. SKIN: Denies any lesions or rashes. MUSCULOSKELETAL: Without any acute deformities. CENTRAL NERVOUS SYSTEM: There was no symptom of dizziness, headache or focal neurologic deficit reported. Remaining systems were reviewed, they were noted all negative. PAST MEDICAL HISTORY: For this patient was known with history of: 1. Chronic hypoxic respiratory failure, use of oxygen. 2. Coronary artery disease and acute congestive heart failure, diastolic dysfunction. 3. Gastroesophageal reflux. 4. Allergic rhinitis. 5. General anxiety disorder. PAST SURGICAL HISTORY: Reported as coronary artery bypass grafting. The patient has bilateral cataract extraction with lens implantation and an aortic valve replacement, bioprosthetic in 2013. [place], [place] REPORT OF CONSULTATION NAME: JEN GAN UNIT #: [id number] ROOM: [facility] DOCTOR: ANGELIKA DAIGLE MD BIRTHDATE: [birth year] SOCIAL HISTORY: The patient is , has 5 children. Denies history of alcohol use or any illicit drug use. The patient was noted tobacco use from age of [age] years old, smoked less than half a pack of cigarettes per day. FAMILY HISTORY: Noted with father at the age of 8282 years old with complication of prostate cancer. Mother at 40 years old, complication related to the bowel obstruction. CURRENT MEDICATIONS: Administered for the patient on this admission were noted use of Remeron, Lipitor, ferrous sulfate, amiodarone, Lovenox for DVT prophylaxis, Solu-Medrol 40 mg IV b.i.d., Mucinex, Dulera, levothyroxine, IV Zosyn, vancomycin, and other medications p.r.n. administered. DRUG ALLERGIES: THE PATIENT WAS NOTED ALLERGY TO CODEINE PHOSPHATE. PHYSICAL EXAMINATION: GENERAL: A 71-year-old -[place] Citizen female who has been noted currently awake and alert for this patient without any acute distress, sitting on the bed. The patient's height was recorded by the nursing staff for the current admission with height of 5 feet 5 inches, weight of 165 pounds with BMI 27.5. VITAL SIGNS: The temperature noted normal, respiratory rate 17-20, heart rate of 123-64, blood pressure 118/58-100/52. The pulse oxygen saturation of the patient recorded on 4-liter nasal cannula 98% saturation, previously 82% for the patient in the Emergency Room. HEENT: Examination shows head was atraumatic. Eyes nonicterus. NECK: Supple. Examination of the mouth of the patient noted with a moist mucosa. CARDIOVASCULAR: S1, S2 is audible. LUNGS: The patient was noted with decreased breath sounds, scattered crackles in the lungs were noted bilaterally. ABDOMEN: Soft, nontender. EXTREMITIES: Without any acute edema. MUSCULOSKELETAL: The patient was noted without any acute deformities. SKIN: Visible skin was noted without any lesions or rashes. CENTRAL NERVOUS SYSTEM: Cranial nerves 2-12 intact. No focal deficit. LABORATORY DATA: CBC that was done for this patient yesterday on the admission, WBC count 12.9, hemoglobin 11.8, platelet count normal. The hematocrit normal. PT/PTT yesterday were noted normal on admission. CMP yesterday on admission, BUN 55, creatinine 2.49. Magnesium 2.6. Lactic acid 1.1. The CMP that was done for the patient this morning, BUN 50, creatinine 1.98, glucose 180. CBC this morning: WBC count was noted normal, hemoglobin 10.5, hematocrit of 35.6, platelet count was normal. The troponin for the patient noted minimally elevated last 24 hours as the max troponin of the patient noted as 0.657 in the last 24 hours of admission. The review of the radiology data of the patient, which was performed. Chest x-ray of the patient that was first reviewed on 10/13/2017 outpatient, last admission was noted with a mass-like lesion for the patient or infiltration, consolidation noted in the right perihilar area, film was rotated towards the right for this patient ____ the problem. [place], [place] REPORT OF CONSULTATION NAME: JEN GAN UNIT #: [id number] ROOM: [facility] DOCTOR: CHAITANYA HOOKER MD,[facility] BIRTHDATE: [birth year] infiltration noted, left perihilar area as well. The patient has a CT scan of the chest that was done for this patient, 10/17/2017 shows changes of advanced pulmonary emphysema was noted with appear like a central appearing nonspecific interstitial pneumonitis for this patient with a fibrotic and cellular component was noted. There were no discrete mass lesions were noted. Large hiatal hernia was visible for this patient clearly on the current CT scan of the chest. There were no pleural effusions. The patient was also noted to have large cyst present medially in the right lower lung as well. IMPRESSION: 1. Currently, the patient who has been admitted to the hospital was noted with findings of acute on chronic severe hypoxic respiratory failure as a result of acute exacerbation of chronic obstructive pulmonary disease. 2. Nonspecific interstitial pneumonitis of the patient with acute etiology and chronic etiologies remain in consideration for connective tissue disorder, acute pulmonary infection and atypical infections. 3. The patient who has been noted currently acute kidney injury of the patient most likely related to the acute tubular necrosis or intravascular volume depletion were noted reduction and improvement in the creatinine. Other etiology, pulmonary renal syndrome would be considered because of the acute on chronic kidney injury. 4. The patient with a history of coronary artery disease as well as bioprosthetic aortic valve replacement. PLAN OF MANAGEMENT: At this time, systematic workup for the patient's current nonspecific interstitial pneumonitis has been started. The patient has been getting Solu-Medrol that will be continued. The workup for the connective tissue disorder of the patient and others has been ordered at the present time. The sputum for Gram stain, culture will be obtained. Monitor respiratory status closely. Exclude any cardiac problem with the current pulmonary infiltration as well. The patient is already assessed by spot facer on last visit. Bronchodilator will be continued every 4 hours. Titrate oxygen supplementation, maintain pulse ox saturation 92% or greater. The use of the BiPAP could be applied for the patient in case of worsening hypoxia. At this time, the patient does not show any signs of respiratory distress requiring immediate use of the BiPAP. Monitoring to be continued. Urine for legionella antigen was ordered. Consideration of bronchoscopy will be also done for the patient for further assessment of current pulmonary infiltration would be done. Other supportive therapy, plan of management and care plan. Usual medical management and therapies. Supportive plan of management and treatments. Continue to assess the patient and make changes or recommendation based on the progression of the illness of the patient with followup with us. [place], [place] REPORT OF CONSULTATION NAME: JEN GAN UNIT #: [id number] ROOM: [facility] DOCTOR: ANGELIKA DAIGLE MD BIRTHDATE: [birth year] ANGELIKA TAVARES MD CM:CONSTR:REPORT OF CONSULTATION 1412 10/22/17 0050 interface
--- NOTE | ~2017-10-20 | PR ---
[place], [place] PROGRESS NOTE NAME: JEN GAN [facility] #: [id number] UNIT #: [id number] ROOM: 408 DOCTOR: CHAITANYA HOOKER MD,ANGELIKA BIRTHDATE: [birth year] DOS: 10/26/2017 SUBJECTIVE: She has been noted this morning, resting in the bed. Reduction in the cough was reported by the patient. There were no symptoms of chest pain or any hemoptysis. Shortness of breath was also noted decreased. Denies symptoms of abdominal pain. The patient denies symptoms of any joint pain, any nausea, vomiting, diarrhea, abdominal pain, hematuria, suprapubic pain, dysuria, headache, weakness, fatigue were noted. Remaining review of systems was complete and they were noted negative. OBJECTIVE: VITAL SIGNS: For the patient, which was recorded showed the temperature for patient noted as normal, respiratory rate 18, heart rate of 70, blood pressure 153/68. The pulse, oxygen saturation were recorded 4 liters 97% saturation. HEENT: Examination shows head was atraumatic. Eyes: No icterus. NECK: Supple. CARDIOVASCULAR: S1, S2 is audible. LUNGS: The patient was noted without any wheezing or crackles on today's examination. ABDOMEN: Soft, nontender. EXTREMITIES: There was no evidence of edema, clubbing or cyanosis. MUSCULOSKELETAL: No deformities. CENTRAL NERVOUS SYSTEM: Cranial nerves 2-12 intact. No focal deficits. LABORATORY DATA: BAL specimen, the patient's beta segment of the right lower lobe was noted 49% lymphocytes and 34% macrophages, 2% eosinophils were noted. Current finding suggestive of possibility of inflammatory condition for this patient, which is known infection for the patient with a differential of hypersensitivity pneumonitis allergic drug reaction or other similar pathologies in consideration. IMPRESSION: 1. The patient was currently noted with gradual reduction and improvement in the respiratory symptoms for acute exacerbation of chronic obstructive pulmonary disease and acute tracheobronchitis. 2. Bilateral pulmonary infiltration with interstitial lung disease. The patient responded to the corticosteroids as well. PLAN OF MANAGEMENT: Switching the patient to prednisone for this patient 40 mg daily dose. Discharge planning could be started. Close monitoring of use of the medication will be done. The patient is currently getting amiodarone 200 mg daily. Antibiotic spectrum certainly would be a done greater for discontinuation of all the broad spectrum intravenous antibiotics days and starting the patient on oral doxycycline for the patient as well. Other supportive therapy, plan of management. Oxygen supplementation to maintain a pulse oxygen saturation 92% or greater. Usual care. Supportive plan of management and other treatments. The patient was also getting IV medication that will be continued as well. A chest x-ray of patient repeated in the morning to reassess the progression of the current pulmonary infiltration assessment. After the chest x-ray tomorrow, current change in medication the [place], [place] PROGRESS NOTE NAME: ELVIAJEN Rowan UNIT #: [id number] ROOM: [facility] DOCTOR: CHAITANYA HOOKER MD,ANGELIKA BIRTHDATE: [birth year] patient noted stable. Discharge planning could be started. ANGELIKA TAVARES MD CM:PNTRANS [phone] ANGELIKA HOOKER MD 10/26/172037 interface
--- NOTE | ~2017-10-20 | CON ---
[place], [place] REPORT OF CONSULTATION NAME: JEN GAN UNIT #: [id number] ROOM: 408 DOCTOR: TUAN HUTTONWILY BIRTHDATE: [birth year] DOS: 10/21/2017 I am covering for Dr. Mejia. HISTORY OF PRESENT ILLNESS: The patient with a known history of bypass surgery, oxygen dependent and COPD, is on 3 liters of oxygen. The patient has a mildly elevated troponin, hence I was consulted. The patient recently was here, treated for pneumonia. The patient was seen by Dr. Mejia at that time and the ejection fraction I was told was preserved. She denies any chest discomfort at this point. She is on oxygen as mentioned. She came in with generalized weakness. The patient states that she was so weak that could not take care of herself. Her heart rate was bradycardic in the past, but is much better now. PAST MEDICAL HISTORY: Significant for bronchial asthma, chronic kidney disease, coronary artery disease, diastolic heart failure, metabolic encephalopathy, protein calorie malnutrition, oxygen dependency. PAST SURGICAL HISTORY: Aortic valve replacement, permanent bioprosthetic valve status post triple vessel bypass surgery. SOCIAL HISTORY: Denies any alcohol abuse, drug abuse. Denies any smoking. FAMILY HISTORY: Positive for coronary artery disease. ALLERGIES: CODEINE. HOME MEDICATIONS: Atorvastatin, Lasix, ferrous sulfate, lisinopril. REVIEW OF SYSTEMS: CONSTITUTIONAL: No fever, no chills. HEENT: No visual disturbances, hearing problems. CARDIOVASCULAR: Denies any chest pain. RESPIRATORY: Reports shortness of breath. GASTROINTESTINAL: No abdominal pain. Does have nausea. GENITOURINARY: No dysuria. NEUROLOGICAL: Stable. PHYSICAL EXAMINATION: VITAL SIGNS: Blood pressure today is 110/60, heart rate is regular. NECK: Supple, no JVD. LUNGS: Diminished breath sounds. HEART: Sounds are regular. ABDOMEN: Soft, nontender. NEUROLOGICAL: Stable. LABORATORY DATA: Sodium 139, potassium 4.5, creatinine is 2.4, magnesium is 2.6. Troponin is 0.78. C-reactive protein is 7. BNP is significantly elevated at 8255. IMPRESSION: The patient's chest x-ray shows normal chest x-ray, stable chronic [place], [place] REPORT OF CONSULTATION NAME: JEN GAN UNIT #: [id number] ROOM: 408 DOCTOR: WILY DICKERSON MD BIRTHDATE: [birth year] interstitial lung disease, diffuse and moderately severe, there is evidence of superimposed bilateral focal areas of bronchopneumonia. IMPRESSION: Recently, the patient with respiratory insufficiency, acute on chronic respiratory failure, leukocytosis, and mildly elevated troponin, chronic renal failure, known history of coronary artery disease, bypass surgery. RECOMMENDATIONS: Continue the present medications as ordered. We will review the recently done echocardiogram. The patient to undergo EGD. I do not think that patient has any acute cardiac decompensation at this point and we will follow up. WILY DICKERSON MD CM:CONSTR:REPORT OF CONSULTATION 1054 10/21/17 2305 interface
[~2017-10-20 12:07] MED LIST changes: +ACULAR 3ML 3 ML5 ML OPH; +DOXYCYCLINE100 M3 PO; +LISINOPRIL20 MG PO; +METOPROLOL SUCC50 M1 PO; +METOPROLOL TART50 M1 PO; +VITAMIN D-32000 UNIT PO
[2017-10-20 12:08] VITALS: BP 110/44
[2017-10-20 12:48] LABS: BASO % 0.2 % (0.0-1.0); EOS # 0.2 10*3/uL (0.0-0.4); EOS % 1.9 % (1.0-4.0); HEMATOCRIT 39.2 % (37.0-47.0); HEMOGLOBIN 11.8 g/dl (12.0-16.0); LYMPH # 1.6 10*3/uL (1.3-4.4); LYMPH % 12.5 % (27.0-41.0); MEAN CELL VOLUME 77.3 fl (81.0-99.0); MEAN CORPUSCULAR HGB 23.3 pg (27.0-31.0); MEAN CORPUSCULAR HGB CONC 30.1 g/dl (33.0-37.0); MEAN PLATELET VOLUME 10.3 fl (9.6-12.3); MONO # 1.5 10*3/uL (0.1-1.0); MONO % 11.3 % (3.0-9.0); NEUT # 9.5 10*3/uL (2.3-7.9); NEUT % 73.6 % (47.0-73.0); PLATELET COUNT AUTOMATED 184 10*3/uL (130-400); RED BLOOD COUNT 5.07 10*6/uL (4.10-5.10); RED CELL DISTRI WIDTH 17.7 % (0-14.5); WHITE BLOOD COUNT 12.9 10*3/uL (4.8-10.8)
[2017-10-20 12:56] LABS: ACT PARTIAL THROMBO TIME 22.7 SECONDS (20.8-31.5)
[2017-10-20 13:07] LABS: ALBUMIN 2.8 gm/dl (3.1-4.5); CREATININE 2.49 mg/dL (0.55-1.02); POTASSIUM 4.5 mmol/L (3.5-5.1); TOTAL PROTEIN 7.1 gm/dL (6.4-8.2)
[2017-10-20 13:09] LABS: TROPONIN I 0.789 ng/ml (<0.045)
[2017-10-20 13:28] LABS: BILIRUBIN NEGATIVE (NEGATIVE); BLOOD NEGATIVE (NEGATIVE); CLARITY SL CLOUDY (CLEAR); COLOR YELLOW (YELLOW); GLUCOSE NEGATIVE (NEGATIVE); KETONE NEGATIVE (NEGATIVE); LEUKO ESTERASE NEGATIVE (NEGATIVE); NITRITE NEGATIVE (NEGATIVE); SPECIFIC GRAVITY 1.025 (1.005-1.030); UROBILINOGEN 0.2 E.U./dl (0.2-1.0)
[2017-10-20 13:36] LABS: BACTERIA 1+
[2017-10-20 13:55] VITALS: BP 116/56
[2017-10-20 14:45] VITALS: BP 113/45
[2017-10-20 18:33] VITALS: BP 138/59
[2017-10-20 20:00] VITALS: BP 96/41
[2017-10-20 21:00] VITALS: BP 100/52
[2017-10-21] VITALS (8 sets, daily range): BP systolic 103–142; BP diastolic 49–65
[2017-10-21 04:04] LABS: HEMATOCRIT 35.6 % (37.0-47.0); HEMOGLOBIN 10.5 g/dl (12.0-16.0); MEAN CELL VOLUME 78.2 fl (81.0-99.0); MEAN CORPUSCULAR HGB 23.1 pg (27.0-31.0); MEAN CORPUSCULAR HGB CONC 29.5 g/dl (33.0-37.0); MEAN PLATELET VOLUME 9.4 fl (9.6-12.3); PLATELET COUNT AUTOMATED 164 10*3/uL (130-400); RED BLOOD COUNT 4.55 10*6/uL (4.10-5.10); RED CELL DISTRI WIDTH 17.2 % (0-14.5); WHITE BLOOD COUNT 9.8 10*3/uL (4.8-10.8)
[2017-10-21 04:17] LABS: INTERNATIONAL NORM RATIO 1.1 (2.0-3.5)
[2017-10-21 04:20] LABS: ALBUMIN 2.4 gm/dl (3.1-4.5); CREATININE 1.98 mg/dL (0.55-1.02); PHOSPHOROUS 2.8 mg/dL (2.5-4.9); POTASSIUM 4.6 mmol/L (3.5-5.1); TOTAL PROTEIN 6.4 gm/dL (6.4-8.2)
[2017-10-21 04:28] LABS: THYROID STIM HORMONE (HS) 0.508 uIU/ml (0.358-4.75)
[2017-10-21 04:43] LABS: POLYCHROMASIA SLIGHT; TOTAL CELLS COUNTED 100 #CELLS
[2017-10-21 04:44] LABS: MICROCYTOSIS SLIGHT; PLATELET SUFFICIENCY NORMAL (NORMAL)
[2017-10-22] VITALS: BP 112/57
[2017-10-22 05:44] LABS: HEMOGLOBIN 10.4 g/dl (12.0-16.0); LYMPH # 0.7 10*3/uL (1.3-4.4); MEAN CELL VOLUME 77.3 fl (81.0-99.0); MEAN CORPUSCULAR HGB 23.6 pg (27.0-31.0); MEAN CORPUSCULAR HGB CONC 30.6 g/dl (33.0-37.0); MEAN PLATELET VOLUME 9.8 fl (9.6-12.3); MONO # 0.3 10*3/uL (0.1-1.0); MONO % 4.3 % (3.0-9.0); NEUT # 6.3 10*3/uL (2.3-7.9); PLATELET COUNT AUTOMATED 169 10*3/uL (130-400); RED CELL DISTRI WIDTH 17.5 % (0-14.5); WHITE BLOOD COUNT 7.3 10*3/uL (4.8-10.8)
[2017-10-22 06:07] LABS: CREATININE 1.48 mg/dL (0.55-1.02); POTASSIUM 4.3 mmol/L (3.5-5.1)
[2017-10-22 08:00] VITALS: BP 129/57
[2017-10-22 08:09] LABS: IMMUNOGLOBULIN M, QNT 25 mg/dL (26-217); RHEUMATOID ARTHRITIS FACTOR <10.0 IU/mL (0.0-13.9)
[2017-10-22 12:00] VITALS: BP 130/60
[2017-10-22 16:00] VITALS: BP 126/62
[2017-10-22 20:00] VITALS: BP 131/57
[2017-10-23] VITALS: BP 134/64
[2017-10-23 07:50] LABS: HEMATOCRIT 33.4 % (37.0-47.0); HEMOGLOBIN 10.1 g/dl (12.0-16.0); LYMPH # 0.7 10*3/uL (1.3-4.4); LYMPH % 9.4 % (27.0-41.0); MEAN CELL VOLUME 76.6 fl (81.0-99.0); MEAN CORPUSCULAR HGB 23.2 pg (27.0-31.0); MEAN CORPUSCULAR HGB CONC 30.2 g/dl (33.0-37.0); MEAN PLATELET VOLUME 9.8 fl (9.6-12.3); MONO # 0.6 10*3/uL (0.1-1.0); MONO % 7.6 % (3.0-9.0); NEUT # 6.1 10*3/uL (2.3-7.9); NEUT % 81.7 % (47.0-73.0); PLATELET COUNT AUTOMATED 169 10*3/uL (130-400); RED BLOOD COUNT 4.36 10*6/uL (4.10-5.10); RED CELL DISTRI WIDTH 17.8 % (0-14.5); WHITE BLOOD COUNT 7.5 10*3/uL (4.8-10.8)
[2017-10-23 08:00] VITALS: BP 154/70
[2017-10-23 08:05] LABS: CREATININE 1.31 mg/dL (0.55-1.02)
[2017-10-23 12:00] VITALS: BP 149/68
[2017-10-23 16:00] VITALS: BP 156/68
[2017-10-23 20:00] VITALS: BP 158/77
[2017-10-24] VITALS: BP 154/90
[2017-10-24 06:51] LABS: HEMATOCRIT 34.3 % (37.0-47.0); HEMOGLOBIN 10.6 g/dl (12.0-16.0); MEAN CELL VOLUME 77.3 fl (81.0-99.0); MEAN CORPUSCULAR HGB 23.9 pg (27.0-31.0); MEAN CORPUSCULAR HGB CONC 30.9 g/dl (33.0-37.0); NUCLEATED RED BLOOD CELL 0.2 % (0.0-0.0); PLATELET COUNT AUTOMATED 154 10*3/uL (130-400); RED BLOOD COUNT 4.44 10*6/uL (4.10-5.10); RED CELL DISTRI WIDTH 17.9 % (0-14.5); WHITE BLOOD COUNT 11.6 10*3/uL (4.8-10.8)
[2017-10-24 07:26] LABS: BUN 25 mg/dl (7-24); CHLORIDE 112 mmol/L (98-107); CREATININE 1.06 mg/dL (0.55-1.02); POTASSIUM 3.8 mmol/L (3.5-5.1); SODIUM 143 mmol/L (136-145)
[2017-10-24 08:00] VITALS: BP 162/88
[2017-10-24 08:05] LABS: MICROCYTOSIS SLIGHT; PLATELET SUFFICIENCY NORMAL (NORMAL); TOTAL CELLS COUNTED 100 #CELLS
[2017-10-24 11:09] LABS: IGG SUBCLASS 1 963 mg/dL (248-810); IGG SUBCLASS 2 173 mg/dL (130-555); IGG SUBCLASS 3 40 mg/dL (15-102); IGG SUBCLASS 4 133 mg/dL (2-96); IMMUNOGLOBULIN G, QNT 1134 mg/dL (700-1600)
[2017-10-24 12:00] VITALS: BP 156/78
[2017-10-24 16:00] VITALS: BP 148/88
[2017-10-24 16:07] LABS: ALDOLASE 002030 4.7 U/L (3.3-10.3); ANGIOTENSIN-CONVERTING ENZYME <15 U/L (14-82); ATYPICAL PANCA <1:20 titer (Neg:<1:20); CYTOPLASMIC (C-ANCA) <1:20 titer (Neg:<1:20)
[2017-10-24 20:00] VITALS: BP 147/67
[2017-10-25] VITALS (9 sets, daily range): BP systolic 114–193; BP diastolic 61–86
[2017-10-25 07:27] LABS: HEMATOCRIT 37.5 % (37.0-47.0); HEMOGLOBIN 11.5 g/dl (12.0-16.0); MEAN CELL VOLUME 76.2 fl (81.0-99.0); MEAN CORPUSCULAR HGB 23.4 pg (27.0-31.0); MEAN CORPUSCULAR HGB CONC 30.7 g/dl (33.0-37.0); PLATELET COUNT AUTOMATED 172 10*3/uL (130-400); RED BLOOD COUNT 4.92 10*6/uL (4.10-5.10); RED CELL DISTRI WIDTH 18.4 % (0-14.5)
[2017-10-25 07:40] LABS: CREATININE 1.12 mg/dL (0.55-1.02); POTASSIUM 3.7 mmol/L (3.5-5.1); TOTAL PROTEIN 6.9 gm/dL (6.4-8.2)
[2017-10-25 07:53] LABS: TOTAL CELLS COUNTED 100 #CELLS
[2017-10-25 07:54] LABS: PLATELET SUFFICIENCY NORMAL (NORMAL); POLYCHROMASIA SLIGHT; TARGET CELLS MODERATE
[2017-10-25 10:42] LABS: BF LYMPHOCYTES 49 %; BF MACROPHAGES 34 %; BF NEUTROPHILS 10 %
[2017-10-26] VITALS: BP 139/80
[2017-10-26 07:05] LABS: BASO % 0.1 % (0.0-1.0); EOS % 0.2 % (1.0-4.0); HEMATOCRIT 36.2 % (37.0-47.0); HEMOGLOBIN 10.9 g/dl (12.0-16.0); LYMPH # 1.4 10*3/uL (1.3-4.4); LYMPH % 12.5 % (27.0-41.0); MEAN CELL VOLUME 77.5 fl (81.0-99.0); MEAN CORPUSCULAR HGB 23.3 pg (27.0-31.0); MEAN CORPUSCULAR HGB CONC 30.1 g/dl (33.0-37.0); MONO # 1.3 10*3/uL (0.1-1.0); MONO % 11.1 % (3.0-9.0); NEUT # 8.7 10*3/uL (2.3-7.9); NEUT % 75.3 % (47.0-73.0); PLATELET COUNT AUTOMATED 151 10*3/uL (130-400); RED BLOOD COUNT 4.67 10*6/uL (4.10-5.10); RED CELL DISTRI WIDTH 18.5 % (0-14.5); WHITE BLOOD COUNT 11.6 10*3/uL (4.8-10.8)
[2017-10-26 07:30] LABS: CREATININE 1.17 mg/dL (0.55-1.02); TOTAL PROTEIN 6.2 gm/dL (6.4-8.2)
[2017-10-26 07:35] LABS: ALBUMIN 2.9 gm/dl (3.1-4.5)
[2017-10-26 08:00] VITALS: BP 153/68
[2017-10-26 12:00] VITALS: BP 128/86
[2017-10-26] MEDS ORDERED: PREDNISONE10 MG PO (14:08)
[2017-10-26] MEDS ORDERED: MUCINEX ER600 MG PO (14:08)
[2017-10-26] MEDS ORDERED: DOXYCYCLINE MO100 M1 PO (14:08)
[2017-10-26] MEDS ORDERED: MIRTAZAPINE15 M2 PO (14:08)
[2017-10-26] MEDS ORDERED: KLOR-CON M1010 ME1 PO (14:08)
[2017-10-26 16:00] VITALS: BP 128/86
[2017-10-26 16:09] LABS: ACID FAST SPEC PROCESSING Concentration (.)
[2017-10-27 16:10] LABS: IMMUNOGLOBULIN IgE 002170 153 IU/mL (0-100)
== END 2017-10-26 18:00 | DRG 166 ==
LOC: ED 12:07 → EDHOLD 14:03 → 4E 14:03
PROVIDERS: Emergency Medicine; Family Medicine; Internal Medicine Critical Care Medicine; Student in an Organized Health Care Education/Training Program
PROC: 0DB78ZX Excision of Stomach, Pylorus, Via Natural or Artificial Opening Endoscopic, Diagnostic (ICD-10-PCS; principal; 2017-10-21)
PROC: 0BD68ZX Extraction of Right Lower Lobe Bronchus, Via Natural or Artificial Opening Endoscopic, Diagnostic (ICD-10-PCS; 2017-10-25)
PROC: 0BDB8ZX Extraction of Left Lower Lobe Bronchus, Via Natural or Artificial Opening Endoscopic, Diagnostic (ICD-10-PCS; 2017-10-25)
PROC: 0BD38ZX Extraction of Right Main Bronchus, Via Natural or Artificial Opening Endoscopic, Diagnostic (ICD-10-PCS; 2017-10-25)
PROC: 0B9F8ZX Drainage of Right Lower Lung Lobe, Via Natural or Artificial Opening Endoscopic, Diagnostic (ICD-10-PCS; 2017-10-25)
PROC: 0BD88ZX Extraction of Left Upper Lobe Bronchus, Via Natural or Artificial Opening Endoscopic, Diagnostic (ICD-10-PCS; 2017-10-25)
PROC: 0BD48ZX Extraction of Right Upper Lobe Bronchus, Via Natural or Artificial Opening Endoscopic, Diagnostic (ICD-10-PCS; 2017-10-25)
PROC: 0BD78ZX Extraction of Left Main Bronchus, Via Natural or Artificial Opening Endoscopic, Diagnostic (ICD-10-PCS; 2017-10-25)
DX: J15.6 Pneumonia due to other Gram-negative bacteria (principal); J96.21 Acute and chronic respiratory failure with hypoxia; N17.0 Acute kidney failure with tubular necrosis; I21.A1 Myocardial infarction type 2; E43 Unspecified severe protein-calorie malnutrition; I50.31 Acute diastolic (congestive) heart failure; I38 Endocarditis, valve unspecified; E87.8 Other disorders of electrolyte and fluid balance, not elsewhere classified; N18.4 Chronic kidney disease, stage 4 (severe); E86.0 Dehydration; I13.0 Hypertensive heart and chronic kidney disease with heart failure and stage 1 through stage 4 chronic kidney disease, or unspecified chronic kidney disease; J44.0 Chronic obstructive pulmonary disease with (acute) lower respiratory infection; J44.1 Chronic obstructive pulmonary disease with (acute) exacerbation; Z99.81 Dependence on supplemental oxygen; D64.9 Anemia, unspecified; Y95 Nosocomial condition; R26.2 Difficulty in walking, not elsewhere classified; D50.9 Iron deficiency anemia, unspecified; K29.70 Gastritis, unspecified, without bleeding; K44.9 Diaphragmatic hernia without obstruction or gangrene; D72.810 Lymphocytopenia; I25.10 Atherosclerotic heart disease of native coronary artery without angina pectoris; F32.9 Major depressive disorder, single episode, unspecified; E55.9 Vitamin D deficiency, unspecified; E66.3 Overweight; J20.9 Acute bronchitis, unspecified; J30.9 Allergic rhinitis, unspecified; F41.1 Generalized anxiety disorder; K21.9 Gastro-esophageal reflux disease without esophagitis; E78.5 Hyperlipidemia, unspecified; I25.2 Old myocardial infarction; Z95.1 Presence of aortocoronary bypass graft; Z95.2 Presence of prosthetic heart valve; Z87.891 Personal history of nicotine dependence; Z79.899 Other long term (current) drug therapy; Z88.5 Allergy status to narcotic agent; Z83.79 Family history of other diseases of the digestive system; Z68.27 Body mass index [BMI] 27.0-27.9, adult

== ENCOUNTER 2017-10-30 20:52 | Inpatient (IN) | payer OTHER, MEDICAID ==
[~2017-10-30] VITALS: Ht 162.5 cm; Wt 73.5 kg
--- NOTE | ~2017-10-30 | EKG ---
[place], [place] ELECTROCARDIOGRAM REPORT NAME: JEN GAN UNIT #: [id number] ROOM: 504 DOCTOR: SHILOH ECHOLS MD BIRTHDATE: [birth year] DOS: 10/30/2017 TIME: 2112 hours. FINDINGS: 1. Normal sinus rhythm at 61 beats per minute. 2. Mild T-wave inversion in anterior chest leads that raises the possibility of ischemia. 3. An abnormal ECG. 4. No previous tracing is available for comparison. SHILOH ECHOLS MD CM:EKGRPT:ELECTROCARDIOGRAM REPORT 1657 1803 SHILOH ECHOLS MD
[~2017-10-30 20:52] MED LIST changes: +DOXYCYCLINE MO100 M1 PO; +KLOR-CON M1010 ME1 PO; +MIRTAZAPINE15 M2 PO
[2017-10-30] MEDS ORDERED: ACULAR 0.5%3 ML OPH (20:55)
[2017-10-30 20:56] VITALS: BP 115/60
[2017-10-30] MEDS ORDERED: DULCOLAX10 M1 R (20:57)
[2017-10-30] MEDS ORDERED: GLUCAGON EMERGEN1 M1 IJ (20:59)
[2017-10-30] MEDS ORDERED: LISINOPRIL20 MG PO (21:00)
[2017-10-30] MEDS ORDERED: GLUTOSE 1537.5 GM PO (21:00)
[2017-10-30] MEDS ORDERED: MILK OF MA400 MG/5 M PO (21:01)
[2017-10-30] MEDS ORDERED: MUCINEX D ER 61 EACH PO (21:02)
[2017-10-30] MEDS ORDERED: Zofran4 MG SL (21:03)
[2017-10-30 21:26] LABS: BASO % 0.1 % (0.0-1.0); EOS % 0.3 % (1.0-4.0); HEMATOCRIT 40.6 % (37.0-47.0); LYMPH # 1.6 10*3/uL (1.3-4.4); LYMPH % 12.8 % (27.0-41.0); MEAN CELL VOLUME 80.4 fl (81.0-99.0); MEAN CORPUSCULAR HGB 23.8 pg (27.0-31.0); MEAN CORPUSCULAR HGB CONC 29.6 g/dl (33.0-37.0); MEAN PLATELET VOLUME 9.6 fl (9.6-12.3); MONO # 1.3 10*3/uL (0.1-1.0); MONO % 10.5 % (3.0-9.0); NEUT # 9.5 10*3/uL (2.3-7.9); NEUT % 75.7 % (47.0-73.0); PLATELET COUNT AUTOMATED 147 10*3/uL (130-400); RED BLOOD COUNT 5.05 10*6/uL (4.10-5.10); RED CELL DISTRI WIDTH 18.4 % (0-14.5); WHITE BLOOD COUNT 12.5 10*3/uL (4.8-10.8)
[2017-10-30 21:30] VITALS: BP 106/57
[2017-10-30 21:44] LABS: ALBUMIN 3.2 gm/dl (3.1-4.5); CREATININE 1.24 mg/dL (0.55-1.02); TOTAL PROTEIN 6.8 gm/dL (6.4-8.2)
[2017-10-30 21:45] LABS: TROPONIN I 0.017 ng/ml (<0.045)
[2017-10-30 21:50] LABS: THYROID STIM HORMONE (HS) 1.94 uIU/ml (0.358-4.75)
[2017-10-30 22:01] LABS: BILIRUBIN 1+ (NEGATIVE); BLOOD NEGATIVE (NEGATIVE); CLARITY SL CLOUDY (CLEAR); COLOR YELLOW (YELLOW); GLUCOSE NEGATIVE (NEGATIVE); KETONE 1+ (NEGATIVE); LEUKO ESTERASE 1+ (NEGATIVE); NITRITE NEGATIVE (NEGATIVE); PH 5.5 (5.0-9.0); SPECIFIC GRAVITY >= 1.030 (1.005-1.030); UROBILINOGEN 0.2 E.U./dl (0.2-1.0)
[2017-10-30 22:12] LABS: BACTERIA 1+; EPITHELIAL CELLS TNTC; MUCOUS TRACE; WBC 16-20 wbc/hpf (0-5)
[2017-10-30 23:26] VITALS: BP 101/59
[2017-10-31 01:00] VITALS: BP 118/63
[2017-10-31 04:00] VITALS: BP 150/51
[2017-10-31 06:49] LABS: BASO % 0.1 % (0.0-1.0); EOS # 0.1 10*3/uL (0.0-0.4); EOS % 0.6 % (1.0-4.0); HEMATOCRIT 38.5 % (37.0-47.0); HEMOGLOBIN 11.4 g/dl (12.0-16.0); LYMPH # 1.5 10*3/uL (1.3-4.4); LYMPH % 12.4 % (27.0-41.0); MEAN CELL VOLUME 79.9 fl (81.0-99.0); MEAN CORPUSCULAR HGB 23.7 pg (27.0-31.0); MEAN CORPUSCULAR HGB CONC 29.6 g/dl (33.0-37.0); MEAN PLATELET VOLUME 10.6 fl (9.6-12.3); MONO # 1.4 10*3/uL (0.1-1.0); NEUT # 9.4 10*3/uL (2.3-7.9); NEUT % 75.4 % (47.0-73.0); PLATELET COUNT AUTOMATED 140 10*3/uL (130-400); RED BLOOD COUNT 4.82 10*6/uL (4.10-5.10); RED CELL DISTRI WIDTH 18.4 % (0-14.5); WHITE BLOOD COUNT 12.4 10*3/uL (4.8-10.8)
[2017-10-31 07:05] LABS: ALBUMIN 3.1 gm/dl (3.1-4.5); ALKALINE PHOSPHATASE 58 U/L (45-117); BUN 31 mg/dl (7-24); CHLORIDE 103 mmol/L (98-107); CREATININE 1.05 mg/dL (0.55-1.02); SGOT/AST 32 IU/L (3-35); SGPT/ALT 32 U/L (12-78); SODIUM 142 mmol/L (136-145); TOTAL PROTEIN 6.6 gm/dL (6.4-8.2)
[2017-10-31 08:00] VITALS: BP 100/66
[2017-10-31 12:00] VITALS: BP 132/66
[2017-10-31 17:45] VITALS: BP 151/61
[2017-10-31 20:00] VITALS: BP 124/62
[2017-11-01] VITALS: BP 150/74
[2017-11-01 06:24] LABS: HEMATOCRIT 39.8 % (37.0-47.0); HEMOGLOBIN 11.5 g/dl (12.0-16.0); MEAN CELL VOLUME 81.6 fl (81.0-99.0); MEAN CORPUSCULAR HGB 23.6 pg (27.0-31.0); MEAN CORPUSCULAR HGB CONC 28.9 g/dl (33.0-37.0); MEAN PLATELET VOLUME 10.5 fl (9.6-12.3); PLATELET COUNT AUTOMATED 141 10*3/uL (130-400); RED BLOOD COUNT 4.88 10*6/uL (4.10-5.10); RED CELL DISTRI WIDTH 18.6 % (0-14.5); WHITE BLOOD COUNT 12.5 10*3/uL (4.8-10.8)
[2017-11-01 07:01] LABS: ALBUMIN 2.9 gm/dl (3.1-4.5); ALKALINE PHOSPHATASE 61 U/L (45-117); BUN 26 mg/dl (7-24); CHLORIDE 102 mmol/L (98-107); CREATININE 1.03 mg/dL (0.55-1.02); SGOT/AST 40 IU/L (3-35); SGPT/ALT 39 U/L (12-78); SODIUM 144 mmol/L (136-145); TOTAL PROTEIN 6.5 gm/dL (6.4-8.2)
[2017-11-01 07:17] LABS: TOTAL CELLS COUNTED 100 #CELLS
[2017-11-01 07:18] LABS: PLATELET SUFFICIENCY NORMAL (NORMAL)
[2017-11-01 08:00] VITALS: BP 121/61
[2017-11-01 12:00] VITALS: BP 161/73
[2017-11-01 16:00] VITALS: BP 149/68
[2017-11-01 20:00] VITALS: BP 144/66
[2017-11-02] VITALS: BP 137/70
[2017-11-02 06:48] LABS: HEMATOCRIT 40.4 % (37.0-47.0); HEMOGLOBIN 11.7 g/dl (12.0-16.0); MEAN CELL VOLUME 81.6 fl (81.0-99.0); MEAN CORPUSCULAR HGB 23.6 pg (27.0-31.0); MEAN PLATELET VOLUME 10.3 fl (9.6-12.3); PLATELET COUNT AUTOMATED 136 10*3/uL (130-400); RED BLOOD COUNT 4.95 10*6/uL (4.10-5.10); RED CELL DISTRI WIDTH 18.8 % (0-14.5); WHITE BLOOD COUNT 15.1 10*3/uL (4.8-10.8)
[2017-11-02 06:55] LABS: BUN 24 mg/dl (7-24); CHLORIDE 104 mmol/L (98-107); CREATININE 1.01 mg/dL (0.55-1.02); POTASSIUM 4.1 mmol/L (3.5-5.1); SODIUM 144 mmol/L (136-145)
[2017-11-02 07:52] LABS: PLATELET SUFFICIENCY NORMAL (NORMAL); TOTAL CELLS COUNTED 100 #CELLS
[2017-11-02 08:00] VITALS: BP 142/75
[2017-11-02 12:00] VITALS: BP 123/71
[2017-11-02 16:00] VITALS: BP 161/80
[2017-11-02 20:00] VITALS: BP 153/73
== END 2017-11-02 22:17 | disposition short-term general hospital (02) | DRG 392 ==
LOC: ED 20:52 → 5E 23:16 → EDHOLD 23:16 → 5E 23:36
PROVIDERS: Emergency Medicine Emergency Medical Services; Internal Medicine; Internal Medicine Nephrology; Student in an Organized Health Care Education/Training Program
DX: K44.9 Diaphragmatic hernia without obstruction or gangrene (principal); N18.4 Chronic kidney disease, stage 4 (severe); J96.10 Chronic respiratory failure, unspecified whether with hypoxia or hypercapnia; I38 Endocarditis, valve unspecified; I50.32 Chronic diastolic (congestive) heart failure; I13.0 Hypertensive heart and chronic kidney disease with heart failure and stage 1 through stage 4 chronic kidney disease, or unspecified chronic kidney disease; Z99.81 Dependence on supplemental oxygen; R11.2 Nausea with vomiting, unspecified; D72.9 Disorder of white blood cells, unspecified; K21.9 Gastro-esophageal reflux disease without esophagitis; D50.9 Iron deficiency anemia, unspecified; J44.9 Chronic obstructive pulmonary disease, unspecified; I25.10 Atherosclerotic heart disease of native coronary artery without angina pectoris; E55.9 Vitamin D deficiency, unspecified; F32.9 Major depressive disorder, single episode, unspecified; E66.3 Overweight; Z88.5 Allergy status to narcotic agent; Z79.899 Other long term (current) drug therapy; Z87.01 Personal history of pneumonia (recurrent); Z95.1 Presence of aortocoronary bypass graft; Z98.49 Cataract extraction status, unspecified eye; Z95.2 Presence of prosthetic heart valve; Z87.891 Personal history of nicotine dependence; Z84.89 Family history of other specified conditions; Z80.42 Family history of malignant neoplasm of prostate

== ENCOUNTER → 2018-01-31 | Outpatient (CLI) | payer OTHER, MEDICAID ==
[~2018-01-31] MED LIST changes: +ACULAR 0.5%3 ML OPH; +DULCOLAX10 M1 R; +GLUCAGON EMERGEN1 M1 IJ; +GLUTOSE 1537.5 GM PO; +MILK OF MA400 MG/5 M PO; +MUCINEX D ER 61 EACH PO; +Zofran4 MG SL
[2018-01-31 09:40] LABS: HEMATOCRIT 35.6 % (37.0-47.0); HEMOGLOBIN 10.2 g/dl (12.0-16.0); MEAN CELL VOLUME 81.8 fl (81.0-99.0); MEAN CORPUSCULAR HGB 23.4 pg (27.0-31.0); MEAN CORPUSCULAR HGB CONC 28.7 g/dl (33.0-37.0); RED BLOOD COUNT 4.35 10*6/uL (4.10-5.10); RED CELL DISTRI WIDTH 15.8 % (0-14.5); WHITE BLOOD COUNT 8.8 10*3/uL (4.8-10.8)
[2018-01-31 10:13] LABS: ALBUMIN 3.3 gm/dl (3.1-4.5); ALKALINE PHOSPHATASE 66 U/L (45-117); BUN 17 mg/dl (7-24); CHLORIDE 105 mmol/L (98-107); CHOLESTEROL 145 mg/dL (<200); CREATININE 0.96 mg/dL (0.55-1.02); HDL CHOLESTEROL 55 mg/dl (40-60); LDL CHOLESTEROL 66 mg/dL (9-159); POTASSIUM 4.1 mmol/L (3.5-5.1); SGOT/AST 20 IU/L (3-35); SGPT/ALT 18 U/L (12-78); SODIUM 139 mmol/L (136-145); TOTAL PROTEIN 7.7 gm/dL (6.4-8.2); TRIGLYCERIDES 120 mg/dl (<150); VLDL CHOLESTEROL 24 mg/dL (6-40)
[2018-02-01 08:11] LABS: HEPATITIS B SURFACE AG Negative (Negative); HEPATITIS C VIRUS ANTIBODY <0.1 s/co (0.0-0.9); RHEUMATOID ARTHRITIS FACTOR <10.0 IU/mL (0.0-13.9)
== END | disposition home or self-care (01) ==
LOC: LAB 09:20
PROVIDERS: Family Medicine
DX: I25.10 Atherosclerotic heart disease of native coronary artery without angina pectoris (principal); R53.83 Other fatigue; J44.9 Chronic obstructive pulmonary disease, unspecified; E78.00 Pure hypercholesterolemia, unspecified; K21.9 Gastro-esophageal reflux disease without esophagitis; M79.1 Myalgia; M25.50 Pain in unspecified joint; I13.0 Hypertensive heart and chronic kidney disease with heart failure and stage 1 through stage 4 chronic kidney disease, or unspecified chronic kidney disease; E11.22 Type 2 diabetes mellitus with diabetic chronic kidney disease; N18.3 Chronic kidney disease, stage 3 (moderate); I50.32 Chronic diastolic (congestive) heart failure

== ENCOUNTER 2018-06-16 12:36 | Emergency (ER) | payer OTHER, MEDICAID ==
[~2018-06-16] VITALS: Ht 160 cm; Wt 63.0 kg
--- NOTE | ~2018-06-16 | EKG ---
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
[2018-06-16 14:24] LABS: BASO # 0.1 10*3/uL (0.0-0.1); BASO % 0.4 % (0.0-1.0); EOS % 0.1 % (1.0-4.0); HEMATOCRIT 40.4 % (37.0-47.0); HEMOGLOBIN 12.3 g/dl (12.0-16.0); LYMPH # 1.4 10*3/uL (1.3-4.4); LYMPH % 10.3 % (27.0-41.0); MEAN CELL VOLUME 76.8 fl (81.0-99.0); MEAN CORPUSCULAR HGB 23.4 pg (27.0-31.0); MEAN CORPUSCULAR HGB CONC 30.4 g/dl (33.0-37.0); MEAN PLATELET VOLUME 9.6 fl (9.6-12.3); MONO # 0.9 10*3/uL (0.1-1.0); MONO % 6.3 % (3.0-9.0); NEUT # 11.5 10*3/uL (2.3-7.9); NEUT % 82.7 % (47.0-73.0); PLATELET COUNT AUTOMATED 274 10*3/uL (130-400); RED BLOOD COUNT 5.26 10*6/uL (4.10-5.10); RED CELL DISTRI WIDTH 15.7 % (0-14.5); WHITE BLOOD COUNT 13.9 10*3/uL (4.8-10.8)
[2018-06-16 14:33] LABS: INTERNATIONAL NORM RATIO 1.1 (2.0-3.5)
[2018-06-16 14:39] LABS: ALBUMIN 4.1 gm/dl (3.1-4.5); ALKALINE PHOSPHATASE 58 U/L (45-117); BUN 30 mg/dl (7-24); CHLORIDE 103 mmol/L (98-107); CREATININE 1.37 mg/dL (0.55-1.02); LIPASE 254 U/L (73-393); POTASSIUM 3.5 mmol/L (3.5-5.1); SGOT/AST 14 IU/L (3-35); SGPT/ALT 15 U/L (12-78); SODIUM 143 mmol/L (136-145); TOTAL PROTEIN 8.6 gm/dL (6.4-8.2)
[2018-06-16 14:44] LABS: TROPONIN I < 0.015 ng/ml (<0.045)
== END 2018-06-17 08:30 | disposition short-term general hospital (02) ==
LOC: ED 12:36
PROVIDERS: Nurse Practitioner Family
DX: K31.89 Other diseases of stomach and duodenum (principal); I12.9 Hypertensive chronic kidney disease with stage 1 through stage 4 chronic kidney disease, or unspecified chronic kidney disease; N18.4 Chronic kidney disease, stage 4 (severe); J44.9 Chronic obstructive pulmonary disease, unspecified; I25.10 Atherosclerotic heart disease of native coronary artery without angina pectoris; K21.9 Gastro-esophageal reflux disease without esophagitis; I25.2 Old myocardial infarction; Z87.891 Personal history of nicotine dependence; Z88.5 Allergy status to narcotic agent; Z79.899 Other long term (current) drug therapy

== ENCOUNTER 2018-06-29 22:36 | Inpatient (IN) | payer OTHER, MEDICAID ==
[~2018-06-29] VITALS: Ht 162.6 cm; Wt 58.6 kg
--- NOTE | ~2018-06-29 | PR ---
[place], [place] PROGRESS NOTE [id number] UNIT #: [id number] ROOM: 528 DOCTOR: PEÑA FARR MD BIRTHDATE: [birth year] DOS: SUBJECTIVE: The patient states that she is slowly getting better. Her appetite is fair. Abdomen does not feel too bad. She does not have any pain. OBJECTIVE: VITAL SIGNS: Blood pressure is 133/72, pulse of 57, respirations 18, temperature 98.1. LUNGS: Diminished breath sounds, clear. HEART: Regular. ABDOMEN: Soft. EXTREMITIES: Without any edema. ASSESSMENT AND PLAN: 1. Hiatal hernia with augur axial rotation. This seems to be stabilized and the patient is eating well. 2. Pneumothorax, 15-20, resolving. No plans to do anything invasive. 3. Adult failure to thrive. PT/OT has been consulted and she will benefit for SNF placement. 4. Acute kidney injury, possibly from dehydration, which is corrected. The kidney functions have normalized. We will discontinue IV fluids. PEÑA FARR MD CM:PNTRANS 0834 PEÑA FARR MD 07/03/1829 interface
--- NOTE | ~2018-06-29 | CON ---
[place], [place] REPORT OF CONSULTATION [id number] UNIT #: [id number] ROOM: [facility] DOCTOR: SHILOH ECHOLS MD BIRTHDATE: [birth year] DOS: 07/02/2018 HISTORY OF PRESENT ILLNESS: This is a 72-year-old -[place] woman with a history of coronary artery disease and aortic valve stenosis. She had multivessel CABG and aortic valve replacement with a bioprosthetic valve in 2013. She also has a significant COPD and had quit smoking about 7 years ago. She has had diastolic heart failure, which had been chronic, essential hypertension, GERD, hiatus hernia, hyperlipidemia, chronic anemia but never had chronic kidney disease. She has never had a stroke or cancer. She was admitted through the Emergency Department because of increasing shortness of breath and also sharp chest pain. She had a CT scan, which showed about 20% pneumothorax and a large hiatus hernia. She has not had any palpitation, dizziness, did not have any loss of consciousness. No swelling in the legs. Couple of years ago, when I saw her in this hospital, she had marked edema of the legs. HOME MEDICATIONS: Had included lisinopril, furosemide, Lipitor, amiodarone, albuterol and iron. PHYSICAL EXAMINATION: GENERAL: This reveals a patient who is sitting in a chair. She is alert, seems to be oriented. She is comfortable. She is not tachypneic. No thyromegaly or finger clubbing. VITAL SIGNS: Temperature 97.7 degrees, pulse is 56 regular, blood pressure 133/70. NECK: JVP is normal. AJR is negative. There is no carotid bruit. CARDIAC: Auscultation revealed grade 2/6 murmur of aortic stenosis with normal A2 sound. EXTREMITIES: No edema in the lower extremities at all. RESPIRATORY: Percussion note reveals hyperresonance with a modestly reduced breath sounds bilaterally with adventitious sounds. No rub was present. DIAGNOSTIC STUDIES: ECG showed normal sinus rhythm at 87 beats per minute with a poor R-wave progression. She had an echocardiogram last year, which demonstrated normal LV systolic function. DIAGNOSTIC DATA: Chest x-ray showed no pneumothorax. LABORATORY DATA: Hemoglobin 8.5 g/dL, which was 11.8 grams on the day of admission. BUN is 23, creatinine 1.08, potassium 4.1, troponin was less than 0.015 on admission. IMPRESSION: 1. Coronary artery disease. This patient is status post coronary artery bypass grafting and is asymptomatic. 2. Aortic valve replacement with a bioprosthetic valve is functioning normally. 3. Chronic obstructive pulmonary disease, aggravated by pneumothorax which is settling down. [place], [place] REPORT OF CONSULTATION NAME: JEN GAN UNIT #: [id number] ROOM: [facility] DOCTOR: SHILOH ECHOLS MD BIRTHDATE: [birth year] RECOMMENDATIONS: She should be on small dose of beta manisha and should be on a statin drug as well, which will be initiated. She is on Eliquis [address] Rivas Ziegler and I are not clear why this was done. Most likely, she had atrial fibrillation in the past. I will review my office notes and also her notes from [facility], where she had bypass surgery to see if there was any obvious reason for anticoagulation. I thank you for this consult. SHILOH ECHOLS MD CM:CONSTR:REPORT OF CONSULTATION 1 07/02/18 1212 interface
--- NOTE | ~2018-06-29 | PR ---
[place], [place] PROGRESS NOTE [id number] UNIT #: [id number] ROOM: 528 DOCTOR: SHILOH ECHOLS MD BIRTHDATE: [birth year] DOS: 07/06/2018 SUBJECTIVE: She is little sleepy, but does not complain of any chest pain or palpitations, but she is tired. She has not ambulated much. PHYSICAL EXAMINATION: GENERAL: Revealed the patient who is comfortable. She is not tachypneic. VITAL SIGNS: Pulse is regular at 60 beats per minute, blood pressure is 141/74. NECK: Normal JVP. LUNGS: Some rhonchi and crackles bilaterally. EXTREMITIES: No edema in the lower extremities. LABORATORY DATA: Today showed a BUN of 11, creatinine 0.96. Sodium 142, potassium 3.8. IMPRESSION: 1. Coronary artery disease, this is asymptomatic. 2. Bioprosthetic aortic valve is functioning normally. 3. Chronic obstructive pulmonary disease with pneumothorax, I think this is resolved. She remains in normal sinus rhythm. No new recommendations. SHILOH ECHOLS MD CM:PNTRANS [id number] SHILOH ECHOLS MD 07/07/18 0338 interface
--- NOTE | ~2018-06-29 | CON ---
[place], [place] REPORT OF CONSULTATION NAME: JEN GAN UNIT #: [id number] ROOM: [facility] DOCTOR: SHERRILL HUTTONMANUELA BIRTHDATE: [birth year] DOS: 06/30/2018 HISTORY OF PRESENT ILLNESS: This is a 72-year-old patient, who has presented with chief complaint of nausea, recurrent emesis, has been admitted through the Emergency Room. White blood cell was 15, H and H of 11 and 37. Chest x-ray was showing cardiomegaly with diminished inspiration, hiatal hernia in chest. CT scan of the abdomen and pelvis was done, again large paraesophageal hernia, right basilar pneumothorax has noticed. A CT scan of the chest was done again, a 20% right pneumothorax was known. PAST MEDICAL HISTORY: Associated with renal insufficiency, paraesophageal hernia, diastolic congestive heart failure, bradycardia, COPD, all these recognized. She has gastroesophageal reflux, systemic hypertension, and depression. PAST SURGICAL HISTORY: Cataract, triple bypass, and aortic valve prosthesis. MEDICATIONS: Medication list has been reviewed. ALLERGIES: THE PATIENT IS ALLERGIC TO CODEINE. SOCIAL HISTORY: She is a nonsmoker, nonalcohol consumer. FAMILY HISTORY: Noncontributory. REVIEW OF SYSTEMS: In general, cannot be obtained much from her as she is distressed. PHYSICAL EXAMINATION: VITAL SIGNS: Stable. HEENT: Head is normocephalic, nontraumatic. Mouth and buccal mucosa benign. NECK: Supple. No thyromegaly. CHEST: Symmetric anatomy. Decreased air entry bilaterally. HEART: Normal sinus rhythm. No gallop. No murmur. ABDOMEN: Soft. No hepato-organomegaly. Bowel sounds present. No pulsatile mass. EXTREMITIES: No cyanosis. No pedal edema. NEUROLOGIC: She is alert and slow. LABORATORY DATA: Labs reviewed, records reviewed. IMPRESSION: Pneumothorax, paraesophageal large hernia with migration of the gastric pouch into the chest. OTHER ADJUNCTIVE DIAGNOSES: As outlined in paragraph of past medical and surgical history. PLAN AND DISCUSSION: We are going to continue with Protonix and nasogastric tube is going to be placed only proximally in the stomach by nurse. The nurse advised of not advancing the NG tube more than length of the esophagus and [place], [place] REPORT OF CONSULTATION NAME: JEN GAN [place] UNIT #: [id number] ROOM: [facility] DOCTOR: SHERRILL HUTTON,MANUELA BIRTHDATE: [birth year] parameters for evaluation with chest x-ray and supportive management. This patient requires surgical mobilization of large paraesophageal hernia from chest to the abdomen. MANUELA MCCARTNEY MD CM:CONSTR:REPORT OF CONSULTATION 1144 07/01/18 0045 interface
--- NOTE | ~2018-06-29 | DS ---
[place], [place] DISCHARGE SUMMARY NAME: JEN GAN [facility] #: [id number] UNIT #: [id number] ROOM: 528 DOCTOR: PEÑA FARR MD BIRTHDATE: [birth year] DOS: 07/05/2018 DIAGNOSES: 1. A 15-20% pneumothorax resolved with conservative management. 2. Chronic gastroparesis. 3. Large hiatal hernia with organoaxial rotation of the stomach. 4. Severe chronic obstructive pulmonary disease. 5. Acute kidney injury, possibly from acute tubular necrosis, which is resolved. 6. Methicillin-resistant Staphylococcus aureus of the nares. 7. Adult failure to thrive. 8. Long-term use of anticoagulants. 9. History of coronary artery disease, status post coronary artery bypass graft with bioprosthetic aortic valve. 10. Mild major depression, recurrent. DISCHARGE MEDICATIONS: Remeron 7.5 at bedtime, Bactroban ointment for local application of the nares twice a day for 5 days, amiodarone 200 daily, Lipitor 10 daily, Protonix 40 daily, Eliquis 5 b.i.d., metoclopramide 10 mg q.8 hours, Tylenol 650 q. 6 hours p.r.n. for pain and Ceftin 250 twice a day. PT/OT consult. DIET: [place]. HOSPITAL COURSE: The patient is 72 years old, not known to me, comes in with complaints of intractable nausea and emesis. Please refer to H and P dictated by Dr. Sheppard for details. After admission, she was found to have large hiatal hernia with volvulus. The patient was treated conservatively with NG tube, n.p.o., Protonix IV and Reglan IV. The patient resolved slowly and the nausea and emesis subsided and NG tube was later pulled and she was started on a diet and she has tolerated it. She also was found to have a 15-20%, pneumonia on a CT of the chest. The patient was on oxygen supplementation for her end-stage COPD, which will be continued. Dr. Arnold was consulted who advised conservative regimen. Dr. Pratt also placed on IV Protonix, which has been continued. She has been on amiodarone, possibly has history of AFib, but no hospital records proved that. Dr. Mejia also was consulted. They advised continuation of Eliquis right now. The chest x-ray shows a possible left lower lobe infiltrate for which the patient will be on antibiotics. The patient is overall improved and stable. Blood cultures are negative. Kidney injury has corrected and the kidney functions are back to normal. The plan is to discharge her to [facility] for therapy. [place], [place] DISCHARGE SUMMARY NAME: JEN GAN UNIT #: [id number] ROOM: 528 DOCTOR: PEÑA FARR MD BIRTHDATE: [birth year] PEÑA FARR MD CM:DISCHRUPERT 7 7 PEÑA FARR MD 07/05/18925 interface
--- NOTE | ~2018-06-29 | PR ---
[place], [place] PROGRESS NOTE NAME: JEN GAN [facility] #: [id number] UNIT #: [id number] ROOM: 528 DOCTOR: WILY DICKERSON MD BIRTHDATE: [birth year] DOS: 07/04/2018 SUBJECTIVE: The patient's cardiac status appears to be stable. The patient was seen by Dr. Mejia yesterday. She denies any symptoms at this point and appears to be stable. The patient was seen by Dr. Ziegler yesterday and Dr. Sheppard. She is hemodynamically stable. REVIEW OF SYSTEMS: A 6-8 systems reviewed, unchanged. OBJECTIVE: VITAL SIGNS: Blood pressure today is 124/80. She is in sinus rhythm, atrial fibrillation. She is negative 430 mL fluid balance. HEART: Sounds are irregularly irregular, controlled rate. LUNGS: Breath sounds are diminished. LABORATORY DATA: Reviewed. As mentioned, hemoglobin 8.3, hematocrit 28.2. Electrolytes are normal. Creatinine is 0.9. Troponins have been negative. IMPRESSION: Coronary artery disease, history of bypass surgery, prosthetic heart valve, which is functioning normally, chronic obstructive pulmonary disease, history of atrial fibrillation back into sinus rhythm. RECOMMENDATIONS: Continue the present medications and we will follow up. WILY DICKERSON MD CM:PNTRANS 0903 1143 WILY DICKERSON MD 07/04/18 1141 interface
--- NOTE | ~2018-06-29 | WRIGHTHP ---
[place], [place] PATIENT HISTORY AND PHYSICAL EXAM NAME: JEN GAN [facility] #: [id number] UNIT #: [id number] ROOM: [facility] DOCTOR: SALAZAR PADILLA MD BIRTHDATE: [birth year] DOS: 06/30/2018 HISTORY OF PRESENT ILLNESS: 1. The patient is a 72-year-old female with a past medical history of chronic intractable vomiting and nausea, recurrent. 2. Adult failure to thrive. 3. Advanced COPD with chronic respiratory failure on home oxygen dependence. 4. Benign essential hypertension. 5. Chronic kidney disease stage 4. 6. History of bradycardia. 7. Elevated C-reactive protein. 8. Gastroesophageal reflux disease and esophagitis. 9. Chronic diastolic type congestive heart failure. 10. Coronary artery disease. 11. Vitamin D deficiency. The patient presented to the Emergency Department at [facility] with increased shortness of breath, which started suddenly yesterday. The patient was seen by Dr. Johnny De Leon in the ER and found to have a small pneumothorax. The patient also has chronic volvulus, which may be responsible for her chronic recurrent nausea and vomiting and she was told in [place] in the past that she would be unable to withstand surgery for volvulus. HOME MEDICATIONS: Iron, albuterol, amiodarone, Lipitor, furosemide, and lisinopril. No chest pain. No dizziness or fainting episode. No other GI or urinary symptoms. REVIEW OF SYSTEMS: RESPIRATORY: Increasing shortness of breath. GASTROINTESTINAL: The patient has chronic recurrent nausea and vomiting. CARDIOVASCULAR: No palpitations, no chest pains. FAMILY HISTORY: Noncontributory. PHYSICAL EXAMINATION: GENERAL: The patient is alert and oriented x 3. Looking quite weak and somewhat short of breath, but in no distress. HEENT AND NECK: Extraocular movements are intact. Sclerae are anicteric. Oral mucosa is moist and clean. No obvious facial weakness. Neck is supple without any lymphadenopathy. No thyromegaly. No JVD. No carotid arterial bruits. LUNGS: Generalized weakness and decreased breath sounds all over. Clear to auscultation. No wheezing. No rhonchi. CARDIOVASCULAR SYSTEM: Heart rate is regular in rate and rhythm. S1 and S2 normally audible. No significant murmur or any other abnormal cardiac sounds. ABDOMEN: Soft, nontender. No obvious organomegaly. Bowel sounds are present. No obvious herniation. EXTREMITIES: Without significant cyanosis or edema. Warm to touch. CENTRAL NERVOUS SYSTEM: Alert and oriented x 3. Cranial nerves II-XII are [place], [place] PATIENT HISTORY AND PHYSICAL EXAM NAME: JEN GAN UNIT #: [id number] ROOM: [facility] DOCTOR: SALAZAR PADILLA MD BIRTHDATE: [birth year] intact. Speech is normal. The patient is able to move all extremities. Normal muscle strength. Deep tendon reflexes are equal on both sides. Plantars were downgoing. The patient with right basilar pneumothorax and subpleural emphysematous changes. Normal serum electrolytes, bilirubin, liver enzymes. White cell count elevated to 15,000. IMPRESSION: 1. The patient with right basilar pneumothorax and increased shortness of breath with severe underlying chronic obstructive pulmonary disease and chronic respiratory failure. Dr. Arnold, the instructional technology teacher to follow the patient admitted to ICU for close monitoring. 2. Acute over chronic respiratory failure with acute exacerbation of chronic obstructive pulmonary disease, to be treated with oxygen, DuoNeb, corticosteroids if necessary and antibiotic. 3. Leukocytosis, apparently related to acute exacerbation of chronic obstructive pulmonary disease and bronchitis. 4. Benign essential hypertension. Blood pressures to be monitored and treated. 5. The patient with history of volvulus, which apparently resulted in recurrent nausea and vomiting and she is not a good candidate for surgery, because of her end-stage lung disease and generalized poor health and adult failure to thrive. Dr. Pratt consulted to follow. 6. Chronic diastolic type congestive heart failure, compensated. 7. Coronary artery disease of [place] vessels without chest pains. 8. The patient with suboptimal long-term prognosis maintains a full code status and is being monitored closely in the ICU and being followed by Pulmonary and global mobility specialist, Dr. Arnold. SALAZAR PADILLA MD CM:HISPHYS:PATIENT HISTORY AND PHYSICAL EXAMINATION 0935 1006 SALAZAR PADILLA MD 06/30/18 1005 interface
--- NOTE | ~2018-06-29 | PR ---
[place], [place] PROGRESS NOTE [id number] UN[facility] #: [id number] ROOM: 528 DOCTOR: PEÑA FARR MD BIRTHDATE: [birth year] DOS: 07/05/2018 SUBJECTIVE: The patient is doing well, does not have any complaint. She had family visit here for [place]. PHYSICAL EXAMINATION: VITAL SIGNS: Blood pressure is 130/58, pulse of 53, respirations 20, and temperature 97.4. LUNGS: Diminished breath sounds, clear. HEART: Regular. ABDOMEN: Obese, soft, nontender. EXTREMITIES: Without any edema. ASSESSMENT AND PLAN: 1. Pneumothorax, which is resolved. 2. Adult failure to thrive, awaiting placement to [facility]. 3. Long-term use of anticoagulants, unknown etiology. 4. MRSA of the nares. Medications have been ordered. The patient is stable and can be discharged to home. PEÑA FARR MD CM:PNTRANS [id number] PEÑA FARR MD 07/06/18 1030 interface
--- NOTE | ~2018-06-29 | PR ---
[place], [place] PROGRESS NOTE NAME: JEN GAN [facility] #: [id number] UNIT #: [id number] ROOM: [facility] DOCTOR: PEÑA FARR MD BIRTHDATE: [birth year] DOS: 07/01/2018 SUBJECTIVE: The patient is resting in bed, does not have any complaints. Nursing staff, she has been stable overnight. OBJECTIVE: VITAL SIGNS: Graphic trend shows a pressure of 146/76, pulse of 87, respirations 14, temperature 97.9. LUNGS: Diminished breath sounds. HEART: Regular. ABDOMEN: Obese, soft, hyperactive bowel sounds. EXTREMITIES: Without any edema. ASSESSMENT AND PLAN: 1. A 15-20% pneumothorax, the patient with severe emphysema. Continue conservative treatment. Dr. Arnold is following. 2. Large paraesophageal hiatal hernia with migration of the gastric pouch. NG tube suctioning was ordered. NG tube is in the herniated gut. Dr. Pratt is aware of it. She is on Protonix IV. 3. Volvulus, which is chronic and not a candidate for any surgery. There is overall poor medical status. 4. Methicillin-resistant Staphylococcus aureus of the nares. Bactroban will be ordered. 5. Chronic kidney disease stage 4, on low IV hydration. Medications will be reviewed and changes made. PEÑA FARR MD CM:PNTRANS 0805 0849 PEÑA FARR MD 07/02/18 0240 interface
--- NOTE | ~2018-06-29 | PR ---
[place], [place] PROGRESS NOTE NAME: JEN GAN [facility] #: [id number] UNIT #: [id number] ROOM: 528 DOCTOR: PEÑA FARR MD BIRTHDATE: [birth year] DOS: SUBJECTIVE: The patient is doing well. She does not have any complaints today. OBJECTIVE: VITAL SIGNS: Graphic trend shows a pressure 128/65, pulse of 54, respirations 18, and temperature 98.0. LUNGS: Clear. HEART: Regular. ABDOMEN: Soft. EXTREMITIES: Without any edema. LABORATORY DATA: This morning shows a BMP: Glucose 88, BUN 12, creatinine 0.97. Electrolytes were normal. ASSESSMENT AND PLAN: 1. Nausea, emesis with hiatal hernia and organoaxial rotation. The patient seems to have improved after the NG tube was discontinued and is eating fairly well. 2. 15-20% pneumothorax resolving. A repeat chest x-ray will be ordered. 3. Adult failure to thrive, awaiting placement to [facility]. 4. Coronary artery disease with history of coronary artery bypass graft, AVR with a bioprosthetic valve, could discontinue Eliquis. PEÑA FARR MD CM:PNTRANS [id number] PEÑA FARR MD 07/04/18 1025 interface
--- NOTE | ~2018-06-29 | CON ---
[place], [place] REPORT OF CONSULTATION [id number] UN[facility] #: [id number] ROOM: 528 DOCTOR: CHAITANYA HOOKER MDANGELIKA BIRTHDATE: [birth year] DOS: 06/30/2018 PULMONARY CONSULTATION AND EVALUATION: REASON FOR CONSULTATION: To assess the patient for current acute spontaneous pneumothorax on the right side. HISTORY OF PRESENT ILLNESS: This is a 72-year-old -[place] female known to me from the past, has not been seen in the office for followup visit since 07/2017. She has been noted with history of end-stage COPD and has been managed in the office for that. The patient was also known with history of chronic hypoxic respiratory failure as well. The patient presented to the Emergency Room this morning as she has reported having symptoms of increased shortness of breath, which has occurred at home associated with multiple symptoms of nausea or vomiting. The patient has been assessed in the Emergency Room. The routine chest x-ray was also done that shows evidence of pneumothorax. The patient had a suspected pneumothorax. CT scan of the abdomen and pelvis was reported as basilar pneumothorax. The patient reported no worsening of shortness of breath since hospitalization that has not been present at rest, but certainly occurs with exertion activity. She does complain of symptoms of mild nonproductive cough. Denies symptoms of wheezing or chest pain reported by the patient. She has been currently admitted to the Hospital Intensive Care Unit. The patient is resting comfortably, using oxygen supplementation with the nasal cannula. REVIEW OF SYSTEMS: CONSTITUTIONAL: Fatigue and tiredness noted without any symptoms of fever or chills. EYES: Denies any burning, redness, or tenderness. EARS, NOSE, THROAT SYMPTOMS: Denies sore throat, hoarseness, otalgia, postnasal drainage or epistaxis. CARDIOVASCULAR: Denies angina pain, edema or pain in the lower extremity. GASTROINTESTINAL: The patient reported symptom constipation, but passing bowel. She has been noted symptoms vomiting few times at home. There were no symptoms of vomiting noted at the present time. Denies any acute abdominal pain, hematemesis, melena, or hematochezia. GENITOURINARY: No dysuria, suprapubic pain, hematuria. MUSCULOSKELETAL: No acute joint pain, redness, or tenderness. SKIN: Denied abnormal lesions or rashes. MUSCULOSKELETAL: Denied joint pain, redness or tenderness or deformity. CENTRAL NERVOUS SYSTEM: General weakness, fatigue reported symptoms of seizures. Remaining systems were reviewed. They were noted all negative. PAST MEDICAL HISTORY: 1. History of gastric volvulus noted with poor surgical candidate for the correction of that. 2. Chronic hypoxic respiratory failure, requiring oxygen supplementation 3 liters nasal cannula. 3. Chronic kidney disease stage 4. [place], [place] REPORT OF CONSULTATION NAME: JEN GAN UNIT #: [id number] ROOM: 528 DOCTOR: LUZ MARINA DAIGLE MDM BIRTHDATE: [birth year] 4. Chronic hypercapnic respiratory failure. 5. End-stage chronic obstructive pulmonary disease. 6. Anxiety and depression. 7. Coronary artery disease. 8. History of congestive heart failure, diastolic dysfunction. 9. Essential hypertension. 10. Gastroesophageal reflux. 11. Valvular heart disease. 12. Difficult ambulation. PAST SURGICAL HISTORY: Noted. 1. Cataract extraction with lens implantation. 2. Aortic valve replacement. 3. Coronary artery bypass grafting in 2013, aortic valve replacement at that time as well. SOCIAL HISTORY: The patient lives at home. Denies any history of alcohol use, illicit drug use. Tobacco use noted from age of [age] years old one-fifth of a pack of cigarettes per day until 2012. She is and has 5 children. FAMILY HISTORY: Father at age of 8282 years old, complication of prostate cancer. Mother at age of 40 due to complication of bowel obstruction. HOME MEDICATIONS: Listed for on this admission from home as the use of Remeron, potassium chloride, Lasix, famotidine, Lipitor, trazodone, Symbicort, multivitamin, ferrous sulfate, potassium chloride, Reglan, albuterol sulfate nebulized bronchodilator treatment, amiodarone, lisinopril, and other p.r.n. different medications use was also listed. DRUG ALLERGIES: THE PATIENT WAS NOTED ALLERGY TO THE CODEINE. PHYSICAL EXAMINATION: GENERAL: This is a 72-year-old female patient who was being currently noted to be awake and alert, sitting on the bed, using oxygen supplementation nasal cannula. Height of 5 feet 4 inches, weight 129 pounds, BMI 22.1. VITAL SIGNS: Normal temperature, respiratory rate 19-24, heart rate 90-100, blood pressure 156/104-148/66. The pulse oxygen saturation recorded on admission 92% and then 100% nonrebreather mask 99%. This morning, 2 liters nasal cannula 97% saturation. HEENT: Elderly status patient. Head was atraumatic. Eyes nonicterus. NECK: Supple. There were no subcutaneous emphysema. CARDIOVASCULAR: S1, S2 is audible. LUNGS: The patient noted with moderate general reduction in breath sounds. There were no wheezing, no crackles. ABDOMEN: The patient was noted without any acute tenderness, hypoactive bowel sounds. EXTREMITIES: Without any acute edema. MUSCULOSKELETAL: The patient noted without any acute deformities. CENTRAL NERVOUS SYSTEM: General weakness with no focal neurologic deficit. Cranial nerves 2-12 intact. There were no skin lesions or rashes. [place], [place] REPORT OF CONSULTATION NAME: JEN GAN UNIT #: [id number] ROOM: 528 DOCTOR: LUZ MARINA DAIGLE MDM BIRTHDATE: [birth year] LABORATORY DATA: The patient's CBC yesterday in the Emergency Room WBC count 15.2, hemoglobin 11.8, platelet count was normal. The lactic acid 1.7 yesterday. CMP of the patient yesterday, BUN 14, creatinine 0.96. CMP was noted normal. Troponin normal. Chest x-ray that was done on the showed cardiomegaly with large hiatal hernia. CT scan of abdomen and pelvis reported by the radiologist report reviewed as large paraesophageal hernia intrathoracic location majority of stomach suspected with organoaxial volvulus with the fluid filled and distended stomach. There were no bowel obstruction. [place]all basilar pneumothorax was noted with changes of emphysema. I have ordered and obtain CT scan of the chest that was personally reviewed, shows evidence of advanced panlobular emphysema changes was noted with paraseptal emphysema as well. Small pneumothorax noted at the right lower lung with area of compression atelectasis. There were no pleural effusions. IMPRESSION: 1. The patient will be admitted to the hospital noted with acute wall of the paraesophageal hernia of the stomach and noted with incidental finding of a spontaneous right-sided pneumothorax. 2. The patient paraseptal and panlobular emphysema changes. The patient was also noted with advanced emphysema. 3. Chronic hypoxic and hypercapnic respiratory failure without any acute exacerbation. 4. Poor surgical candidate. PLAN OF MANAGEMENT: The patient will be continued oxygen supplementation with monitoring of the pneumothorax with a repeat chest x-ray in the morning. At this time, insertion of the chest tube is not necessary unless rather the pneumothorax progresses. Other supportive therapy, plan of management, care plan for the patient to be continued for the patient as well. Supportive therapy, plan of management and care plan for the patient as well with additional treatment changes will be ordered based on the progression of the illness. At this time, he will be academic patient to diagnose the patient alpha-1 antitrypsin deficiency because of the current panlobular emphysema of the assessment if necessary will be done with outpatient testing. Surgical consultation for this patient and GI consultation might be obtained for the assessment of current volvulus. Other supportive therapy, plan of management, care plan for the patient and follow the recommendation by the other consultants as well. There was no need of BiPAP or other supportive treatment. Defined the code status the patient as well clearly for this patient. Because of the multiple medical conditions of the patient high risk of increased mortality and morbidity with any surgical intervention. Thanks for allowing me to participate in care of this patient. [place], [place] REPORT OF CONSULTATION NAME: JEN GAN Rowan UNIT #: [id number] ROOM: 528 DOCTOR: ANGELIKA DAIGLE MD BIRTHDATE: [birth year] ANGELIKA TAVARES MD CM:CONSTR:REPORT OF CONSULTATION 1350 07/17/18 0858 interface
--- NOTE | ~2018-06-29 | PR ---
[place], [place] PROGRESS NOTE NAME: JEN GAN [facility] #: [id number] UNIT #: [id number] ROOM: 528 DOCTOR: CHAITANYA HOOKER MD,ANGELIKA BIRTHDATE: [birth year] DOS: 07/02/2018 PULMONARY PROGRESS NOTE SUBJECTIVE: The patient has been sitting comfortably on the chair this morning. Denies symptoms of shortness of breath, coughing or sputum expectoration. Abdominal pain was better. NG tube were removed. She was started on clear liquids this morning, seemed to be tolerated. OBJECTIVE: VITAL SIGNS: Normal temperature, respiratory rate 15, heart rate 87, blood pressure 133/70, pulse oxygen saturation on oxygen was noted as 99% on 2 liters nasal cannula at rest. HEENT: Head was atraumatic. Eyes nonicterus. NECK: Supple. CARDIOVASCULAR: S1, S2 is audible. LUNGS: The patient was noted without any wheeze or crackles at the present time. ABDOMEN: Soft and nontender. Bowel sounds present. EXTREMITIES: The patient was noted without any acute edema. IMPRESSION: 1. The patient with asymptomatic small basilar loculated pneumothorax with history of severe emphysema as well. 2. Gastric volvulus, symptomatically improving. PLAN OF MANAGEMENT: No changes in the plan from pulmonary standpoint. Continue current treatment, observation for the pneumothorax. Supportive care therapy, plan of management, care plan and treatment. ANGELIKA TAVARES MD CM:PNTRANS 1020 1430 ANGELIKA HOOKER MD 07/02/18 1429 interface
--- NOTE | ~2018-06-29 | PR ---
[place], [place] PROGRESS NOTE NAME: JEN GAN [facility] #: [id number] UNIT #: [id number] ROOM: [facility] DOCTOR: PEÑA FARR MD BIRTHDATE: [birth year] DOS: 07/02/2018 SUBJECTIVE: The patient is awake, responsive, does not have any complaints. Denies having any pain. She is oriented and answers questions appropriately. She has a very flat affect. OBJECTIVE: VITAL SIGNS: Blood pressure is 133/70, pulse of 50s, respirations 15, temperature 97.5. LUNGS: Diminished breath sounds, clear. HEART: Regular. ABDOMEN: Soft, scaphoid. EXTREMITIES: Without any edema. ASSESSMENT AND PLAN: 1. Large hiatal hernia with volvulus, organoaxial rotation of the stomach with thickening of the esophagus. The patient seems to be stable. She does not have any more nausea, emesis. NG tube has been removed and was placed on clear liquid diet. Continue Protonix and Reglan for right now. 2. Pneumothorax 15-20%. Plan is to continue observation. Repeat chest x-ray done yesterday showed a small right pneumo was not clearly noticed. We will repeat chest x-ray again tomorrow along with routine lab work. 3. Major depression, recurrent. Add Remeron. 4. Chronic anemia. Check iron. 5. Benign hypertension, controlled. 6. Chronic long-term use of anticoagulants, unknown etiology. She has history of IVC filter, so most likely has had a DVT in the past. We will continue Eliquis. PEÑA FARR MD CM:PNTRANS 0759 [id number] PEÑA FARR MD 07/02/18 1113 interface
--- NOTE | ~2018-06-29 | PR ---
[place], [place] PROGRESS NOTE NAME: JEN GAN UNIT #: [id number] ROOM: [facility] DOCTOR: CHAITANYA HOOKER MD,ANGELIKA BIRTHDATE: [birth year] DOS: 07/01/2018 SUBJECTIVE: The patient has an NG tube in place and they are made n.p.o. She has been consulted and consultation was ordered by Dr. Pratt. The patient has not been reported any symptoms of fever or chills. She would like to drink some fluid, but kept n.p.o. because of the current gastric volvulus. There were no symptoms of shortness of breath, wheezing or cough reported from yesterday, which is new. Vital signs were normal. The patient denies symptoms of edema or pain in lower extremity, nausea or vomiting. OBJECTIVE: VITAL SIGNS: Normal temperature, respiratory rate 17, heart rate 70, blood pressure 140/60-146/76. The pulse oxygen saturation on 3 liters nasal cannula 95% saturation. HEENT: Examination shows head was atraumatic. Eyes nonicterus. NECK: Supple. CARDIOVASCULAR: S1, S2 audible. LUNGS: Moderate general reduction in breath sounds bilaterally. No wheeze or crackles. ABDOMEN: Soft. Bowel sounds are present. EXTREMITIES: Without acute edema. VISIBLE SKIN: No lesions or rashes. MUSCULOSKELETAL: Mild senile kyphosis. CENTRAL NERVOUS SYSTEM: Cranial nerves 2-12 intact, but general weakness noted. LABORATORY DATA: One view chest x-ray that was done was noted with relatively suboptimal, but there was no visualized pneumothorax at this time. NG tube in the stomach. BMP this morning, BUN 23, creatinine 1.08. Other electrolytes are grossly normal. IMPRESSION: 1. Gastric volvulus. 2. Small basilar pneumothorax with panlobular emphysema with advanced chronic obstructive pulmonary disease. 3. Stable chronic hypoxic respiratory failure. Plan of management. Continue current conservative treatment for a gastric volvulus. Pneumothorax. The patient needs to be observed. No changes need to be done. Continue oxygen supplementation. Usual care. Supportive therapy, plan of management, care plan and treatment and therapies. [place], [place] PROGRESS NOTE NAME: JEN GAN UNIT #: [id number] ROOM: [facility] DOCTOR: CHAITANYA HOOKER MD,ANGELIKA BIRTHDATE: [birth year] ANGELIKA TAVARES MD CM:PNTRANS [phone] ANGELIKA HOOKER MD 07/02/18 0108 interface
--- NOTE | ~2018-06-29 | EKG ---
[place], [place] ELECTROCARDIOGRAM REPORT NAME: JEN GAN UNIT #: [id number] ROOM: [facility] DOCTOR: BRENDA DRAFT REPORT BIRTHDATE: [birth year] [facility] Test Date: 2018-06-29 Test Time: 23:17:04 Pat Name: JEN GAN Department: Room: [facility] Gender: F Production Sampler: Ashley Etienne : 1945 Requested By: LC LUCERO Order Number: [id number] Reading MD: Harpreet Brock MD Measurements Intervals [place] Rate: 87 P: 51 WI: 174 QRS: -1 QRSD: 99 T: 104 QT: 324 QTc: 390 Interpretive Statements Sinus rhythm LVH with secondary repolarization abnormality Anterior Q waves, possibly due to LVH Baseline wander in lead(s) V4,V5,V6 Compared to ECG 06/16/2018 14:37:44 No significant change Electronically Signed On 06-30-2018 12:57:00 PST by Harpreet Brock MD CM:EKGRPT:ELECTROCARDIOGRAM REPORT 2317 1257 LC BLACKBURN DRAFT REPORT LC LUCERO DO
--- NOTE | ~2018-06-29 | PR ---
[place], [place] PROGRESS NOTE NAME: JEN GAN [facility] #: [id number] UNIT #: [id number] ROOM: 528 DOCTOR: SALAZAR PADILLA MD BIRTHDATE: [birth year] DOS: 07/06/2018 SUBJECTIVE: The patient says she is breathing better and tolerating diet. OBJECTIVE: GENERAL APPEARANCE: The patient is alert and oriented x 3, in no visible distress. Generalized weakness. VITAL SIGNS: Blood pressure 118/60, breathing 18 times per minute, heart rate of 55 beats per minute, afebrile. HEENT AND NECK: Exam within normal limits. CARDIOVASCULAR SYSTEM: Heart rate is regular in rate and rhythm. S1 and S2 normally audible. LUNGS: Clear to auscultation. ABDOMEN: Soft, nontender. No obvious organomegaly. Bowel sounds are present. EXTREMITIES: Without significant cyanosis or edema. IMPRESSION: 1. The patient has 15%-20% pneumothorax resolved with conservative treatment. 2. The patient has volvulus and chronic gastroparesis, now tolerating diet. The patient had large hiatal hernia with organoaxial rotation of the stomach. 3. Chronic obstructive pulmonary disease and centrilobular emphysema with chronic shortness of breath. 4. Coronary artery disease of [place] vessels and coronary artery bypass grafts. SALAZAR PADILLA MD CM:PNTRANS 2046 0029 SALAZAR PADILLA MD 07/07/18 0028 interface
--- NOTE | ~2018-06-29 | PR ---
[place], [place] PROGRESS NOTE NAME: JEN GAN [facility] #: [id number] UNIT #: [id number] ROOM: 528 DOCTOR: SHILOH ECHOLS MD BIRTHDATE: [birth year] DOS: 07/03/2018 SUBJECTIVE: She is rather quiet and feels tired and she is in bed. She does not seem to be in any distress, comfortable. She is not tachypneic. OBJECTIVE: GENERAL: Complexion is fine. VITAL SIGNS: Temperature is 98.2 degrees, pulse is irregular at 56 beats per minute, blood pressure 137/77. NECK: JVP is normal. AJR is negative. LUNGS: Breath sounds are diminished bilaterally with some adventitious sounds, but no edema in the lower extremity on the torso. IMPRESSION: 1. Coronary artery disease, status post remote coronary artery bypass grafting, asymptomatic. 2. Prosthetic aortic valve is functioning fine. 3. Chronic obstructive pulmonary disease exacerbation and pneumothorax which is resolving. 4. Monitor shows normal sinus rhythm. 5. No new recommendations. SHILOH ECHOLS MD CM:PNTRANS 1134 [id number] SHILOH ECHOLS MD 07/03/18 1200 interface
[2018-06-29 22:38] VITALS: BP 160/92
[2018-06-29 23:13] LABS: BASO # 0.1 10*3/uL (0.0-0.1); BASO % 0.5 % (0.0-1.0); EOS # 0.2 10*3/uL (0.0-0.4); EOS % 1.1 % (1.0-4.0); HEMATOCRIT 37.7 % (37.0-47.0); HEMOGLOBIN 11.8 g/dl (12.0-16.0); MEAN CELL VOLUME 76.5 fl (81.0-99.0); MEAN CORPUSCULAR HGB 23.9 pg (27.0-31.0); MEAN CORPUSCULAR HGB CONC 31.3 g/dl (33.0-37.0); MEAN PLATELET VOLUME 9.4 fl (9.6-12.3); MONO # 1.1 10*3/uL (0.1-1.0); MONO % 6.9 % (3.0-9.0); NEUT # 11.9 10*3/uL (2.3-7.9); NEUT % 78.1 % (47.0-73.0); PLATELET COUNT AUTOMATED 317 10*3/uL (130-400); RED BLOOD COUNT 4.93 10*6/uL (4.10-5.10); RED CELL DISTRI WIDTH 15.4 % (0-14.5); WHITE BLOOD COUNT 15.2 10*3/uL (4.8-10.8)
[2018-06-29 23:31] LABS: ALBUMIN 3.5 gm/dl (3.1-4.5); ALKALINE PHOSPHATASE 64 U/L (45-117); BUN 14 mg/dl (7-24); CHLORIDE 103 mmol/L (98-107); CREATININE 0.96 mg/dL (0.55-1.02); LIPASE 358 U/L (73-393); POTASSIUM 3.9 mmol/L (3.5-5.1); SGOT/AST 13 IU/L (3-35); SGPT/ALT 14 U/L (12-78); SODIUM 139 mmol/L (136-145); TOTAL PROTEIN 7.8 gm/dL (6.4-8.2)
[2018-06-29 23:33] LABS: TROPONIN I < 0.015 ng/ml (<0.045)
--- NOTE | 2018-06-29 23:59 | NUR ---
RAC IV SITE NONFUNCTIONAL AT THIS TIME. DOES NOT FLUSH NOR HAVE BLOOD RETURN. DISCONTINUED.
[2018-06-30] VITALS (9 sets, daily range): BP systolic 148–197; BP diastolic 66–108
--- NOTE | 2018-06-30 00:15 | NUR ---
22GAUGE ANGIOCATH ESTABLISHED LT HAND.IV FLUSHES WELL.NS INFUSING.
--- NOTE | 2018-06-30 00:36 | NUR ---
PT TO CT. CONDITION STABLE. FAMILY IN ROOM AND IN FAMILY WAITING ROOM.
--- NOTE | 2018-06-30 00:53 | NUR ---
RETURNED FROM CT. CONDITION STABLE.
--- NOTE | 2018-06-30 01:14 | NUR ---
NURSE TO NURSE REPORT GIVEN TO THIS RN.
--- NOTE | 2018-06-30 01:41 | NUR ---
PT PLACED ON 15L NR PER MD LUCERO VERBAL ORDER.
[2018-06-30] MEDS ORDERED: GOOD NEIGHBOR P20 MG PO (01:42)
[2018-06-30] MEDS ORDERED: ASPIR 8181 MG PO (01:43)
[2018-06-30] MEDS ORDERED: FUROSEMIDE20 M1 PO (01:44)
[2018-06-30] MEDS ORDERED: LIPITOR20 MG PO (01:44)
[2018-06-30] MEDS ORDERED: TRAZODONE50 MG PO (01:44)
[2018-06-30] MEDS ORDERED: OYSTER SHELL C500 M4 PO (01:45)
[2018-06-30] MEDS ORDERED: METOCLOPRAMIDE10 MG PO (01:45)
[2018-06-30] MEDS ORDERED: K-TAB10 MEQ PO (01:45)
--- NOTE | 2018-06-30 01:46 | NUR ---
PT PLACED IN EDHOLD UNTIL MORNING.
--- NOTE | 2018-06-30 02:12 | NUR ---
PT FAMILY REQUEST PASSWORD "[id number]".
--- NOTE | 2018-06-30 02:13 | NUR ---
PT GRANDDAUGHTER DARVIN CONTACT #[phone].
--- NOTE | 2018-06-30 03:05 | NUR ---
NURSE TO NURSE REPORT GIVEN TO RN Damari PT RESTING IN BED WITH LIGHTS DIMMED.NO SIGNS DISTRESS NOTED AT THIS TIME.
--- NOTE | 2018-06-30 05:06 | NUR ---
ADMISSION ORDERS RECIEVED FROM DR. PADILLA. ORDERS REPEATED BACK AND CONFIRMED.
--- NOTE | 2018-06-30 05:43 | NUR ---
PT REPORTS SHE FEELS LIKE THROWING UP.MD LUCERO NOTIFIED.PT MEDICATED 4MG ZOFRAN IVP.
--- NOTE | 2018-06-30 06:22 | NUR ---
PT HAD APPROX 25CC LIGHT JONES TINGED EMESIS BUT REPORTS SHE IS FEELING BETTER AFTER MEDICATION OF ZOFRAN.
--- NOTE | 2018-06-30 06:42 | NUR ---
ATTEMPTED TO CONSULT DR. MCCARTNEY. UNABLE TO REACH HIM AT THIS TIME.
--- NOTE | 2018-06-30 06:51 | NUR ---
DR. TAVARES NOTIFIED OF CONSULT. NO ORDERS RECEIVED.
--- NOTE | 2018-06-30 07:05 | NUR ---
A 72, admitted to ICCU, under the services of Dr. RANDY HUTTON,SALAZAR Mckeon with a diagnosis of PNEUMOTHORAX,GASTRIC VOLVULUS,DEHYDRATION. Chief complaint is VOMITING,WEAKNESS,BACK PAIN AND ABDOMINAL PAIN AT HOME. Patient arrived via stretcher from ER. Monitor applied. Initial assessment completed. Vital signs taken and recorded. DR. RANDY HUTTON,SALAZAR Mckeon notified of admission to the unit. Orders received. See assessment for past medical history, medications and allergies. Patient and/or family oriented to unit. [facility] visitation policy reviewed. Clothing/patient valuable form completed. LONNIE WAGGONER
[2018-06-30] MEDS ORDERED: ELIQUIS2.5 M1 PO (09:42)
--- NOTE | 2018-06-30 10:31 | NUR ---
NOTIFIED OF NEW CONSULT. ORDER RECEIVED TO PLACE NGT AND PLACE ON LIS.
--- NOTE | 2018-06-30 12:17 | NUR ---
NOTIFIED THAT PATIENT IS REFUSING TO HAVE NGT PLACED. NEW ORDERS RECEIVED FOR MEDICATIONS. WILL CONTINUE TO MONITOR.
--- NOTE | 2018-06-30 15:02 | NUR ---
Family at bedside. Discussed hospice at home vs hospice at [facility], Family is unsure of what they want to pursue yet. Instructed to call CM when a decision has been made or let the nurse know and son standing at the end of patient's bed verbalized an understanding.
--- NOTE | 2018-06-30 16:00 | NUR ---
PATIENT GRANDDAUGHTER AT BEDSIDE AND DISCUSSED WITH PATIENT REGARDING THE NGT. PATIENT IS AGREEABLE TO IT AT THIS TIME. #16FR NGT PLACED TO LEFT NARE. 500CC FLUID DRAINED IMMEDIATELY.
--- NOTE | 2018-06-30 16:50 | NUR ---
NOTIFIED THAT PATIENT ALLOWED RN TO INSERT NGT. ALSO INFORMED THAT PATIENT BLOOD PRESSURE 180/82 MANUALLY. NEW ORDERS RECEIVED.
--- NOTE | 2018-06-30 16:50 | NUR ---
NOTIFIED THAT PATIENT ALLOWED RN TO INSERT NGT. ORDER RECEIVED FOR KUB AND TO CALL WITH RESULTS.
--- NOTE | 2018-06-30 18:56 | NUR ---
NOTIFIED OF KUB RESULTS. STATED THAT PLACEMENT OF NGT IS IN GOOD POSITION. PLACE NGT TO LIS.
--- NOTE | 2018-06-30 23:42 | NUR ---
24 HR chart check completed.
[2018-07-01] VITALS: BP 124/64
--- NOTE | 2018-07-01 00:28 | NUR ---
PATIENT RESTING, MOVING TO ADJUST SELF IN BED. PATIENT DID AWAKE, AND STATED SHE DIDNT NEED ANYTHING, SHE WAS GOOD. PATIENT IN VIEW OF STAFF. WILL CONTINUE TO MONITOR.
[2018-07-01 04:00] VITALS: BP 146/76
[2018-07-01 06:34] LABS: BUN 23 mg/dl (7-24); CHLORIDE 109 mmol/L (98-107); CREATININE 1.08 mg/dL (0.55-1.02); POTASSIUM 4.1 mmol/L (3.5-5.1); SODIUM 144 mmol/L (136-145)
[2018-07-01 08:00] VITALS: BP 145/72
--- NOTE | 2018-07-01 09:27 | NUR ---
Awake and alert this AM. NGT to LIS. Dr. Ziegler in to evaulate. Dr. Arnold in also. Family at bedside. Remains NPO.
--- NOTE | 2018-07-01 10:16 | NUR ---
Dr. Pratt was called re: pt. request for ice chips and NPO status. Orders recieved. Family at bedside.
--- NOTE | 2018-07-01 11:52 | NUR ---
IV to LH infilltrated dc'd. Restart to RA . Family in to visit. Taking ice chips.
[2018-07-01 12:00] VITALS: BP 148/69
--- NOTE | 2018-07-01 14:26 | NUR ---
NGT advanced ie: - output . CXR to confirm placement. Ice chips given . Family at bedside.
--- NOTE | 2018-07-01 15:52 | NUR ---
Transferred to room #1 for privacy and isolation. Family here and aware. DR. Ziegler was called re: po meds and pt.request for pain med order was recieved and pt. was medicated for pain scale 8/10 abdominal.
[2018-07-01 15:54] VITALS: BP 158/76
--- NOTE | 2018-07-01 16:02 | NUR ---
Dulcolax suppository was given for constipation pt. retained for 1 hour and then expelled it wit a very small amount of mucoid stool .
--- NOTE | 2018-07-01 17:43 | NUR ---
Dr. Pratt was notified of KUB result. Orders were recieved. NGT was dc'd and pt. encouraged to take po fluids slowly. Family remains at bedside.
[2018-07-01 20:00] VITALS: BP 111/72
--- NOTE | 2018-07-01 22:56 | NUR ---
PT RESTING IN BED WITH NO C/O ANY. UP TO BSC X 1 ASSIST.
[2018-07-02] VITALS: BP 111/72
[2018-07-02 04:00] VITALS: BP 143/72
[2018-07-02 06:42] LABS: BASO # 0.1 10*3/uL (0.0-0.1); BASO % 0.7 % (0.0-1.0); EOS # 0.3 10*3/uL (0.0-0.4); HEMATOCRIT 28.2 % (37.0-47.0); HEMOGLOBIN 8.5 g/dl (12.0-16.0); LYMPH # 1.8 10*3/uL (1.3-4.4); LYMPH % 23.9 % (27.0-41.0); MEAN CELL VOLUME 79.4 fl (81.0-99.0); MEAN CORPUSCULAR HGB 23.9 pg (27.0-31.0); MEAN CORPUSCULAR HGB CONC 30.1 g/dl (33.0-37.0); MEAN PLATELET VOLUME 9.2 fl (9.6-12.3); MONO # 0.9 10*3/uL (0.1-1.0); MONO % 11.3 % (3.0-9.0); NEUT # 4.6 10*3/uL (2.3-7.9); NEUT % 59.8 % (47.0-73.0); PLATELET COUNT AUTOMATED 231 10*3/uL (130-400); RED BLOOD COUNT 3.55 10*6/uL (4.10-5.10); RED CELL DISTRI WIDTH 15.2 % (0-14.5); WHITE BLOOD COUNT 7.7 10*3/uL (4.8-10.8)
[2018-07-02 06:54] LABS: CREATININE 0.81 mg/dL (0.55-1.02)
[2018-07-02 07:43] VITALS: BP 133/70
--- NOTE | 2018-07-02 08:15 | NUR ---
Awakened for VS Dr. Ziegler in to evaulate. Order for tsfr. to medical floor recieved. PO meds resumed. Requests CHARLES sawant off.
--- NOTE | 2018-07-02 09:14 | NUR ---
Complete bed bath given and up to chair. Dr. Mejia present and aware of consult. Evaulated pt. Monitor removed awaiting bed assignment for transfer to medical floor.
--- NOTE | 2018-07-02 09:17 | NUR ---
Dr. Arnold in to dorothykirill.
--- NOTE | 2018-07-02 10:37 | NUR ---
Took clear liquid breakfast well , Denies nausea or vomiting.
--- NOTE | 2018-07-02 10:54 | NUR ---
Dr. Pratt was called at his request for morning update. Message left on ans machine for call back.
--- NOTE | 2018-07-02 11:05 | NUR ---
Dr. Pratt called in update was given and orders were recieved.
[2018-07-02 11:52] VITALS: BP 123/69
--- NOTE | 2018-07-02 12:09 | NUR ---
Assisted up to BSC small amt loose BM and urine.
--- NOTE | 2018-07-02 14:12 | NUR ---
Transferred to 528 via bed with belongings. Report to brady. Dtr. Kendall called in update was given and notified of transfer to medical floor.
[2018-07-02 16:00] VITALS: BP 125/65
[2018-07-02 20:00] VITALS: BP 135/79
--- NOTE | 2018-07-02 20:16 | NUR ---
24 HR chart check completed.
--- NOTE | 2018-07-02 20:30 | NUR ---
Patient resting quietly with no c/o discomfort. Respirations easy and regular. Vital signs stable. No overt distress. WILBERT JOE
[2018-07-03] VITALS: BP 133/72
[2018-07-03 06:25] LABS: BASO % 0.6 % (0.0-1.0); EOS # 0.3 10*3/uL (0.0-0.4); EOS % 4.8 % (1.0-4.0); HEMATOCRIT 28.2 % (37.0-47.0); HEMOGLOBIN 8.3 g/dl (12.0-16.0); LYMPH # 2.1 10*3/uL (1.3-4.4); LYMPH % 29.3 % (27.0-41.0); MEAN CELL VOLUME 79.9 fl (81.0-99.0); MEAN CORPUSCULAR HGB 23.5 pg (27.0-31.0); MEAN CORPUSCULAR HGB CONC 29.4 g/dl (33.0-37.0); MEAN PLATELET VOLUME 8.7 fl (9.6-12.3); MONO # 0.9 10*3/uL (0.1-1.0); MONO % 13.1 % (3.0-9.0); NEUT # 3.7 10*3/uL (2.3-7.9); NEUT % 51.8 % (47.0-73.0); PLATELET COUNT AUTOMATED 243 10*3/uL (130-400); RED BLOOD COUNT 3.53 10*6/uL (4.10-5.10); RED CELL DISTRI WIDTH 15.3 % (0-14.5); WHITE BLOOD COUNT 7.1 10*3/uL (4.8-10.8)
[2018-07-03 06:41] LABS: BUN 13 mg/dl (7-24); CHLORIDE 107 mmol/L (98-107); CREATININE 0.84 mg/dL (0.55-1.02); POTASSIUM 3.8 mmol/L (3.5-5.1); SODIUM 140 mmol/L (136-145)
[2018-07-03 08:00] VITALS: BP 137/77
--- NOTE | 2018-07-03 08:30 | NUR ---
Supervisor Heat Treating in to talk to patient. Patient states lives at home with her granddaughter. There are 0 steps in the home. Physician: Dr. Marty Das Pharmacy: [facility] services: none Patient's level of ADLs: MODERATE ASSIST Patient has working utilities: yes DME: O2 @ 3L nc, portable O2 tanks, nebulizer, unsure of who supplies her O2, walker Follow-up physician's appointment after d/c: she prefers to make her own follow up appt after discharge Does patient want to access PORTAL?: no Discharge plan discussed with patient. She is independent in her ADLs and ambulates with a walker. Discussed short term SNF and she is agreeable and chose [facility]. She will require a precert. TRICE BENDER
--- NOTE | 2018-07-03 09:17 | NUR ---
Attempted to reach granddaughter, Gabi, at [phone] regarding SNF. Mailbox is full and can not accept any new messages. Will try again at a later time.
--- NOTE | 2018-07-03 10:00 | NUR ---
PHYSICAL THERAPY PAtient evaluiated on 5, full evaluation to follow. Continue with PT as per plan of care with fall, 02, alarm and acute debility precautions, Will require SNF. PAtient is high complexity via chart review, tests and evaluation: 02165. Thank you for this referral. Rosa Cartwright ,pT
--- NOTE | 2018-07-03 11:14 | NUR ---
Referral to [facility] for SNF. Pt. requires Precert Prior to Discharge.
[2018-07-03 12:00] VITALS: BP 99/59
--- NOTE | 2018-07-03 13:12 | NUR ---
Message received from Brittney Wine Consultant at [facility]. Therapy notes needed to Start Precert.
--- NOTE | 2018-07-03 13:23 | NUR ---
HENS completed online. Submitted successfully. Requires no further review. Copy placed in Patient Chart.
[2018-07-03 16:00] VITALS: BP 127/67
[2018-07-03 20:00] VITALS: BP 145/79
[2018-07-04] VITALS: BP 128/65
[2018-07-04 05:51] LABS: BUN 12 mg/dl (7-24); CHLORIDE 108 mmol/L (98-107); CREATININE 0.97 mg/dL (0.55-1.02); POTASSIUM 3.8 mmol/L (3.5-5.1); SODIUM 143 mmol/L (136-145)
[2018-07-04 08:00] VITALS: BP 124/81
[2018-07-04 12:00] VITALS: BP 135/68
[2018-07-04 16:00] VITALS: BP 133/63
[2018-07-04 20:00] VITALS: BP 134/60
--- NOTE | 2018-07-04 21:20 | NUR ---
PATIENT MEDICATED WITH TYLENOL PER DRS ORDERS FOR COMPLAINTS OF BACK PAIN AT THIS TIME. SEE EMAR. RN WILL MONITOR THIS PATIENT FOR EFFECTIVENESS OF MEDICATION TO REDUCE PAIN
[2018-07-05] VITALS: BP 130/58
--- NOTE | 2018-07-05 07:22 | NUR ---
PATIENT AWAKE AND ALERT DURING BEDSIDE SHIFT REPORT.
[2018-07-05] MEDS ORDERED: MIRTAZAPINE15 M2 PO (07:58)
[2018-07-05] MEDS ORDERED: Bactroban Oint22 GM NAS (07:58)
[2018-07-05 08:00] VITALS: BP 156/65
[2018-07-05] MEDS ORDERED: LIPITOR10 MG PO (08:01)
[2018-07-05] MEDS ORDERED: AMIODARONE HYD200 MG PO (08:01)
[2018-07-05] MEDS ORDERED: PROTONIX40 MG PO (08:01)
[2018-07-05] MEDS ORDERED: CEFUROXIME AXE250 MG PO (08:06)
--- NOTE | 2018-07-05 08:30 | NUR ---
Deaf And Hard Of Hearing Teacher in to see patient. No new needs or request at this time. When medically stable and precert is obtained she will be discharged to [facility]. capacity planner following.
--- NOTE | 2018-07-05 09:59 | NUR ---
PHYSICAL THERAPY Patient presented to therapy in supine with head of bed elevated and report of feeling somewhat better. Patient is on 1 liter of spO2. Patient agrees to therapy session. Patient was identified by name and . Patient performed supine to sitting at EOB transfer with MIN AX 1 to MOD A X 1. Patient only required MOD A X 1 for a short period of time to scoot to EOB. Patient was able to transfer supine to sitting with MIN A X 1 , except for the scooting to EOB. Patient sat at EOB unassisted. Patient transferred STS to W/W with MIN A X 1 with verbal cues for pushing off bed with hands. Patient ambulated with W/W and CGA X 1 for 30' X 1 with verbal cues for upright posture and safe turns. Patient then transferred to bedside chair with with CGA X 1 WITH verbal cues for putting hands back on armrests. Patient performed seated bilateral LE ther ex in all planes of movement for strengthening the LEs in order to facilitate improving functional mobility. Patient performed x 5 STSs with CGA X 1 with verbal cues for pushing off armrests of chair. Patient was left in sitting position with call light within reach, 1 liter of spO2 attached to wall outlet via nasal canula, chair alarm activated and attached, and LEs raised. Patient was 1:1 with this RIGGING LOFT REPAIRER for 23 minutes total. WILLOW CRISOSTOMO RIGGING LOFT REPAIRER
--- NOTE | 2018-07-05 11:58 | NUR ---
Occupational Therapy evaluation completed on 5th floor will full eval to follow. Moderate complexity lvel [address]117. Precautions: fall risk, alarm, Mod A sit<>stand, MRSA, O2. Recommend SNF. Will work on functional strengthening, standing/sitting balance, safety with functional mobility. Thank you for this referral, Shayna Vasquez OTR/L
[2018-07-05 12:00] VITALS: BP 140/69
--- NOTE | 2018-07-05 13:27 | NUR ---
PHYSICAL THERAPY Patient presented to therapy in supine with head of bed elevated. Patient had no complaints. Patient is on 1 liter of spO2 via nasal canula. Patient agrees to therapy session. Patient was identified by name and . Patient transferred supine to sitting at EOB with SBA with verbal cues for scooting to EOB, and LEs over EOB. Patient transferred STS with MIN A X 1 with verbal cues for pushing off bed with hands. Patient ambulated with W/W and CGA X 1 ,with other therapist negotiating the O2 TANK, for 50' x 1 in side room only due to isolation precautions. Patient transferred to bedside chair with CGA X 1. Patient was left in bedside chair with call light within reach, chair alarm attached, and RN present. Patient was 1:1 with this SUEDING MACHINE OPERATOR for 15 minutes total. Patient recommended to SNF upon D/C. WILLOW CIRSOSTOMO SUEDING MACHINE OPERATOR
--- NOTE | 2018-07-05 13:30 | NUR ---
OT NOTE Pt was seen this P.M. 1:1 for 15 minute OT session. Upon arrival pt was supine in bed, pt identified by name and . Pt had no complaints at this time other than increased fatigue. Pt transferred supine to sit EOB with Keli. Sit to stand completed from bed level with Keli and use of w/w for UE support. Functional mobility completed into the bathroom with CGA and use of w/w for UE support. Pt declined any ADL task at this time due to not needing to use the bathroom and/or complete grooming task. Functional mobility completed back to recliner where she was left with call light in hand, tray table in place, and body alarm on for safety. Continue with rec D/C plan to SNF. LEILA Torres/Natalya
--- NOTE | 2018-07-05 13:40 | NUR ---
patient updated clinicals/PT&OT evals and notes faxed to [facility], asked to start precert, patient is ready for discharge. Waiting for auth.
[2018-07-05 16:00] VITALS: BP 152/71
--- NOTE | 2018-07-05 19:35 | NUR ---
PATIENT RESTING IN BED WITH EYES CLOSED DURING BEDSIDE SHIFT REPORT. NO SIGNS OR SYMPTOMS OF DISTRESS SEEN. RESPIRATIONS ARE QUIET AND UNLABORED ON 1LITER NASAL CANNULA. CALL LGHIT WITHIN REACH AND BED ALARM ON FOR PATIENT SAFETY. RN WILL CONTINUE TO MONITOR THIS PATIENT.
[2018-07-05 20:00] VITALS: BP 132/61
[2018-07-06] VITALS: BP 141/74
--- NOTE | 2018-07-06 05:45 | NUR ---
PATIENT LAYING DOWN IN BED, RESTING WITH EYES CLOSED. NO SIGNS OF DISTRESS SEEN. CALL LIGHT WITHIN REACH. RN WILL CONTINUE TO MONITOR BED ALARM ON FOR PATIENT SAFETY
[2018-07-06 06:59] LABS: BUN 11 mg/dl (7-24); CHLORIDE 110 mmol/L (98-107); CREATININE 0.92 mg/dL (0.55-1.02); POTASSIUM 3.8 mmol/L (3.5-5.1); SODIUM 142 mmol/L (136-145)
[2018-07-06 08:00] VITALS: BP 113/57; BP 129/69
--- NOTE | 2018-07-06 08:30 | NUR ---
Expediter in to see patient. No new needs or request at this time. When medically stable and precert is obtained she will be discharged to [facility]. management planner following.
--- NOTE | 2018-07-06 09:20 | NUR ---
OT NOTE Attempted to see pt this A.M. for OT session and upon arrival pt was supine in bed eating her breakfast. Will check back at a later time/date. LEILA Torres/Natalya
--- NOTE | 2018-07-06 09:32 | NUR ---
PHYSICAL THERAPY Patient is eating breakfast at this time. Will check back later. WILLOW CRISOSTOMO WHOLESALER
--- NOTE | 2018-07-06 10:30 | NUR ---
OT NOTE Pt was seen this A.M. 1:1 for 15 minute OT session. Upon arrival pt was sitting reclined in recliner, pt identified by name and . Pt had complaints of generalized weakness and fatigue and presented to therapy with continous 1L-O2 via NC which she remained on throughout entire session. Pt transferred sit to stand from chair level with maxA X 2 and education for proper hand placement for increased I in functional transfers. Pt then completed functional mobility around the room and to her bathroom with CGA and use of w/w for UE support. Slow rate of performance with mobility and constant verbal prompts to correct her posture and pick her head up. Attempted to complete functional strengthening tasks and pt was unable to stay awake and/or follow commands so no ther ex provided at this time. Pt was left sitting reclined in recliner with call light in hand, tray table in place, and body alarm on for safety. Continue with rec D/C plan to SNF. LEILA Torres/Natalya
--- NOTE | 2018-07-06 10:57 | NUR ---
Called to room by granddaughter. Explained waiting on precert from her insurance company to be able to be discharged to [facility]. Family can transport on discharge.
--- NOTE | 2018-07-06 11:09 | NUR ---
PHYSICAL THERAPY Patient presented to therapy in sitting in bedside chair with 2 liters of spO2. Patient agrees to therapy sesssion. Patient was identified by name and . Patient says she is not feeling well. Patient STS stand transfer with MAX A X 2 with verbal cues for pushing off armrests with hands. Patient ambulated with W/W and CGA X 1 with other therapist handling O2 tank for 48' x 1 inside room only ,due isolation precautions. Patient required verbal cues for upright posture, WIDER BROOKS, and pushing down on walker. Patient transferred back to bedside chair with MIN A X 1. Patient was left in sitting position in bedside chair with call light within reach, chair alarm attached, and daughter visiting in room. LEILA Grimes also there working with patient. Patient was 1:1 with this EMTS for 15 minutes total. WILLOW CRISOSTOMO EMTS
[2018-07-06 12:00] VITALS: BP 115/50
[2018-07-06 16:00] VITALS: BP 125/56
[2018-07-06 20:00] VITALS: BP 118/60
[2018-07-07] VITALS: BP 142/92
--- NOTE | 2018-07-07 07:46 | NUR ---
Patient has received auth for [facility] and can go if medically stable for discharge
[2018-07-07 08:00] VITALS: BP 119/45
--- NOTE | 2018-07-07 08:36 | NUR ---
patient is discharged to [facility], transportation scheduled with Jarrett Troy at 11:00. Previous CM note stated family would transport, I called and spoke with daughter and granddaughter who stated they do not want to transport patient to [facility], they were told the hosital is responsible for transport.
[2018-07-07 08:58] LABS: BUN 13 mg/dl (7-24); CHLORIDE 111 mmol/L (98-107); SODIUM 142 mmol/L (136-145)
[2018-07-07 09:00] LABS: POTASSIUM 5.4 mmol/L (3.5-5.1)
--- NOTE | 2018-07-07 09:22 | NUR ---
OCCUPATIONAL THERAPY IN WITH PATIENT AT THIS TIME. RN EXPLAINED DISCHARGE TO PATIENT AND THAT SHE WOULD BE LEAVIG AROUND 11. PATIENT VERBALIZED UNDERSTANDING AND STATED SHE "DIDNT WANT TO SIGN PAPERS" AT THIS TIME. OT CONTINUES TO WORK WITH PATIENT AT THIS TIME, PATIENT DENYING ANY NEEDS. CALL LGIHT WITHIN REACH AND PATIENT WAS EDUCATED ABOUT USING CALL LIGHT IF NEEDS ARISE. RN WILL CONTINUE TO MONITOR THIS PATIENT
--- NOTE | 2018-07-07 09:30 | NUR ---
OT NOTE Pt was seen this A.M. 1:1 for 25 minute OT session. Upon arrival pt was sitting upright in recliner, pt identified by name and . Pt had no complaints at this time and presented to therapy with continous 2L-O2 via NC which she remained on throughout entire session. Pt completed sit to stand from chair level with Keli and education to push from chair for increased I. Functional mobility then completed to the bathroom with CGA and use of w/w for UE support. Functional mobility then completed back to recliner with CGA where she was left sitting upright. Pt completed BUE towel exercises over all planes of motion for 1 X 10 to increase UE strength needed for increased I in self care tasks and functional transfers. Pt was left sitting upright in recliner with call light in hand, tray table in place, and nody alarm on for safety. Continue with rec D.c plan to SNF. BENJAMÍN Torres
--- NOTE | 2018-07-07 10:04 | NUR ---
PHYSICAL THERAPY Patient was in sittign position in bed side chair upon this STRIPPER SOFT PLASTIC arriving in patient's room. Patient had complaint of fatigue. Patient agrees to therapy session. Patient was identified by name and . Patient performed STS transfer with MOD X 2 with verbal cues for pushing off armrests with hands. Patient ambulated with W/W and CGA for 48' x 1 with 2 liters of spO2. PATIENT REQUIRED VERBAL CUES FOR UPRIGHT POSTURE AND STAYING CLOSE TO WALKER. Patient then transferred back to bedside chair with MIN A X 2 with verbal cues for putting hands back on armrests. Patient sat in bedside chair and performed bilateral LE ther ex in all planes of movement for strengthening in order to improve patient's functional mobility. Patient was left in sitting position with call light within reach, chair alarm attached, and tray table in front of patient. Patient was 1:1 with this STRIPPER SOFT PLASTIC for 23 minutes total. Patient is recommended for SNF upon discharge. WILLOW CRISOSTOMO STRIPPER SOFT PLASTIC
--- NOTE | 2018-07-07 10:36 | NUR ---
REPORT CALLED TO [facility] AT THIS TIME. ALL INFORMATION GIVEN TO RN AT [facility]. OPPORTUNITY GIVEN TO ASK QUESTIONS. CALL BACK NUMBER PROVIDED.
--- NOTE | 2018-07-07 10:57 | NUR ---
[facility] HERE TO TRANSPORT PATIENT AT THIS TIME. ALL BELONGINGS TO BE SENT WITH PATIENT. PATIENT IN STABLE CONDITION
--- NOTE | 2018-07-07 14:39 | NUR ---
PHYSICAL THERAPY CO-SIGN I approve of the Phyical Therapy notes written above. ARIEL ADAMS PT
--- NOTE | 2018-07-10 08:21 | NUR ---
OCCUPATIONAL THERAPY CO-SIGN I approve of the Occupational Therapy notes written above. CHUCKY KIM OTR/Natalya
[2018-08-27] MEDS ORDERED: DICYCLOMINE HCL20 MG PO (15:40)
[2018-08-27] MEDS ORDERED: REMERON15 M2 PO (15:42)
[2018-08-27] MEDS ORDERED: VITAMIN D34000 UNIT PO (15:42)
[2018-08-27] MEDS ORDERED: DOCUSATE SOD100 MG PO (15:43)
[2018-08-27] MEDS ORDERED: ACETAMINOPHEN325 M2 PO (15:46)
[2018-08-27] MEDS ORDERED: BREO ELLIPTA 21 EACH INH (15:47)
[2018-08-27] MEDS ORDERED: VENTOLIN 02.5 MG/3 M INH (15:48)
[2018-08-27] MEDS ORDERED: OMEPRAZOLE MAGN20 MG PO (15:49)
== END 2018-07-07 10:57 | disposition other institution (70) | DRG 199 ==
LOC: ED 22:36 → ICCU 06-30 01:40 → 5E 06-30 01:40 → EDHOLD 06-30 01:40 → ICCU 06-30 06:02 → 5E 07-02 14:13
PROVIDERS: Internal Medicine; Student in an Organized Health Care Education/Training Program; ADMIT Internal Medicine
PROC: 0D9670Z Drainage of Stomach with Drainage Device, Via Natural or Artificial Opening (ICD-10-PCS; principal; 2018-06-30)
DX: J93.9 Pneumothorax, unspecified (principal); N17.0 Acute kidney failure with tubular necrosis; J96.21 Acute and chronic respiratory failure with hypoxia; J96.22 Acute and chronic respiratory failure with hypercapnia; J18.1 Lobar pneumonia, unspecified organism; I50.32 Chronic diastolic (congestive) heart failure; F33.0 Major depressive disorder, recurrent, mild; I13.0 Hypertensive heart and chronic kidney disease with heart failure and stage 1 through stage 4 chronic kidney disease, or unspecified chronic kidney disease; N18.4 Chronic kidney disease, stage 4 (severe); K44.9 Diaphragmatic hernia without obstruction or gangrene; D64.9 Anemia, unspecified; J43.2 Centrilobular emphysema; E86.0 Dehydration; K31.89 Other diseases of stomach and duodenum; F41.9 Anxiety disorder, unspecified; K21.9 Gastro-esophageal reflux disease without esophagitis; Z66 Do not resuscitate; Z51.5 Encounter for palliative care; K31.84 Gastroparesis; I48.91 Unspecified atrial fibrillation; R62.7 Adult failure to thrive; Z96.1 Presence of intraocular lens; I25.10 Atherosclerotic heart disease of native coronary artery without angina pectoris; Z95.1 Presence of aortocoronary bypass graft; Z22.322 Carrier or suspected carrier of Methicillin resistant Staphylococcus aureus; Z95.2 Presence of prosthetic heart valve; Z79.01 Long term (current) use of anticoagulants; Z88.5 Allergy status to narcotic agent; I25.2 Old myocardial infarction; Z87.891 Personal history of nicotine dependence; Z80.42 Family history of malignant neoplasm of prostate; Z83.79 Family history of other diseases of the digestive system; Z98.49 Cataract extraction status, unspecified eye

== ENCOUNTER 2018-09-08 16:15 | Emergency (ER) | payer OTHER, MEDICAID ==
[~2018-09-08] VITALS: Wt 63.5 kg
--- NOTE | ~2018-09-08 | EKG ---
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
[~2018-09-08 16:15] MED LIST changes: +ACETAMINOPHEN500 M5 PO; +AMIODARONE HYD200 MG PO; +ASPIR 8181 MG PO; +BREO ELLIPTA 21 EACH INH; +Bactroban Oint22 GM NAS; +CEFUROXIME AXE250 MG PO; +DICYCLOMINE HCL20 MG PO; +DOCUSATE SOD100 MG PO; +ELIQUIS2.5 M1 PO; +FUROSEMIDE20 M1 PO; +GOOD NEIGHBOR P20 MG PO; +K-TAB10 MEQ PO; +LIPITOR10 MG PO; +METOCLOPRAMIDE10 MG PEG; +OMEPRAZOLE MAGN20 MG PO; +OYSTER SHELL C500 M4 PO; +REMERON15 M2 PO; +TRAZODONE50 MG PO; +VITAMIN D34000 UNIT PO
[2018-09-08 16:55] LABS: BASO % 0.3 % (0.0-1.0); EOS # 0.2 10*3/uL (0.0-0.4); EOS % 1.9 % (1.0-4.0); HEMATOCRIT 25.5 % (37.0-47.0); HEMOGLOBIN 7.7 g/dl (12.0-16.0); LYMPH # 1.8 10*3/uL (1.3-4.4); LYMPH % 17.3 % (27.0-41.0); MEAN CELL VOLUME 76.6 fl (81.0-99.0); MEAN CORPUSCULAR HGB 23.1 pg (27.0-31.0); MEAN CORPUSCULAR HGB CONC 30.2 g/dl (33.0-37.0); MEAN PLATELET VOLUME 8.9 fl (9.6-12.3); MONO # 1.1 10*3/uL (0.1-1.0); MONO % 10.7 % (3.0-9.0); NEUT % 69.3 % (47.0-73.0); PLATELET COUNT AUTOMATED 375 10*3/uL (130-400); RED BLOOD COUNT 3.33 10*6/uL (4.10-5.10); RED CELL DISTRI WIDTH 15.3 % (0-14.5); WHITE BLOOD COUNT 10.1 10*3/uL (4.8-10.8)
[2018-09-08 17:04] LABS: ACT PARTIAL THROMBO TIME 29.3 SECONDS (20.8-31.5)
[2018-09-08 17:24] LABS: ALBUMIN 2.9 gm/dl (3.1-4.5); ALKALINE PHOSPHATASE 113 U/L (45-117); BUN 20 mg/dl (7-24); CHLORIDE 108 mmol/L (98-107); IRON 19 ug/dL (50-170); LIPASE 201 U/L (73-393); POTASSIUM 3.7 mmol/L (3.5-5.1); SGOT/AST 28 IU/L (3-35); SGPT/ALT 21 U/L (12-78); SODIUM 140 mmol/L (136-145); TOTAL IRON BINDING CAPACITY 257 ug/dl (250-450); TOTAL PROTEIN 7.4 gm/dL (6.4-8.2)
[2018-09-08 17:37] LABS: TROPONIN I < 0.015 ng/ml (<0.045)
[2018-09-08 18:46] LABS: FERRITIN 109.4 ng/mL (10.0-291.0)
[2018-10-20] MEDS ORDERED: PROTONIX40 MG PO (20:33)
== END 2018-09-08 19:03 | disposition home or self-care (01) ==
LOC: ED 16:15
PROVIDERS: Emergency Medicine
DX: D50.0 Iron deficiency anemia secondary to blood loss (chronic) (principal); I13.0 Hypertensive heart and chronic kidney disease with heart failure and stage 1 through stage 4 chronic kidney disease, or unspecified chronic kidney disease; N18.4 Chronic kidney disease, stage 4 (severe); I50.30 Unspecified diastolic (congestive) heart failure; J44.9 Chronic obstructive pulmonary disease, unspecified; I25.10 Atherosclerotic heart disease of native coronary artery without angina pectoris; K21.9 Gastro-esophageal reflux disease without esophagitis; I25.2 Old myocardial infarction; Z88.0 Allergy status to penicillin; Z88.5 Allergy status to narcotic agent; Z91.040 Latex allergy status; Z79.899 Other long term (current) drug therapy; Z95.1 Presence of aortocoronary bypass graft; Z87.891 Personal history of nicotine dependence

== ENCOUNTER 2018-09-12 15:27 | Inpatient (IN) | payer OTHER, MEDICAID ==
[2018-09-12] VITALS (14 sets, daily range): BP systolic 104–152; BP diastolic 40–99
[~2018-09-12] VITALS: Ht 162.5 cm; Wt 67.2 kg
--- NOTE | ~2018-09-12 | DS ---
[place], [place] DISCHARGE SUMMARY NAME: JEN GAN UNIT #: [id number] ROOM: 521 DOCTOR: SALAZAR PADILLA MD BIRTHDATE: [birth year] DOS: 09/13/2018 DISCHARGE DIAGNOSES: 1. Blood loss anemia. The patient is status post blood transfusion, hemoglobin of 9.2. 2. Chronic atrial fibrillation. The patient's anticoagulation was stopped because of constant gastrointestinal bleed and need for blood transfusions. 3. Hiatal hernia with organoaxial rotation of the stomach. 4. Adult failure to thrive. 5. Coronary artery disease of [place] vessels and coronary artery bypass grafts. 6. Major depression, recurrent, mild. 7. Chronic obstructive pulmonary disease. HOSPITAL COURSE: The patient with severe anemia and hemoglobin of 6.5, was admitted to [facility] because outpatient. Blood transfusion could not be arranged according to admission. The patient was given 2 units of packed cells and her hemoglobin has improved to 9.2 and the patient is being discharged back to senior care. Chronic atrial fibrillation. The patient was anticoagulated with Eliquis, but had to be stopped because of persistent GI bleed and the patient is requiring blood transfusions. Apparently, will have to take the risk of thromboembolism and CVA with atrial fibrillation because anticoagulating her is even high risk to her life at this time. The patient is a high risk for acute GI bleed and higher mortality and morbidity related to that. Hiatal hernia with organoaxial rotation and recurrent nausea and vomiting. Coronary artery disease of [place] vessels without chest pain. Chronic constipation, treated and controlled with Colace. LABORATORY DATA: Hemoglobin improved to 9.2, platelets normal. DISCHARGE MANAGEMENT: Colace 100 mg b.i.d., amiodarone 200 mg daily, omeprazole 20 mg daily, metoclopramide 10 mg 3 times a day, dicyclomine 20 mg q.i.d., breathing treatments with DuoNeb q.i.d. p.r.n., Tylenol 1000 mg t.i.d. for pain. [place], [place] DISCHARGE SUMMARY NAME: JEN GAN UNIT #: [id number] ROOM: 521 DOCTOR: SALAZAR PADILLA MD BIRTHDATE: [birth year] SALAZAR PADILLA MD CM:LOIS [id number] SALAZAR PADILLA MD 09/14/18 0550 interface
--- NOTE | ~2018-09-12 | WRIGHTHP ---
[place], [place] PATIENT HISTORY AND PHYSICAL EXAM NAME: JEN GAN [facility] #: [id number] UNIT #: [id number] ROOM: 521 DOCTOR: SALZAAR PADILLA MD BIRTHDATE: [birth year] DOS: 09/12/2018 HISTORY OF PRESENT ILLNESS: The patient is a 72-year-old female with a past medical history of; 1. Upper GI bleed. 2. Progressive blood loss anemia. 3. Hiatal hernia with organoaxial rotation of the stomach. 4. Chronic atrial fibrillation. The patient on anticoagulation with Eliquis. 5. Adult failure to thrive. 6. Chronic gastroparesis. 7. Coronary artery disease of the [place] vessels and coronary artery bypass graft. 8. Major depression, recurrent, mild. 9. COPD. The patient was sent over for a blood transfusion from [facility] to [facility], but outpatient blood transfusion could not be performed, so the patient was admitted for blood transfusion. After admission, the patient is asymptomatic and going to receive 2 units of blood. No chest pain, no shortness of breath. No GI or urinary symptoms. REVIEW OF SYSTEMS: RESPIRATORY: No increasing shortness of breath. GASTROINTESTINAL: No nausea, vomiting, diarrhea or constipation. CARDIOVASCULAR: No chest pains or palpitations. HOME MEDICATIONS: Metoclopramide, Eliquis, amiodarone, atorvastatin, dicyclomine, vitamin D, Colace, Tylenol, Breo inhaler and omeprazole. FAMILY HISTORY: Noncontributory. SOCIAL HISTORY: Denies smoking cigarettes, alcohol and drug abuse. ALLERGIES: Known allergies to PENICILLIN, CODEINE, AND LATEX. PHYSICAL EXAMINATION: GENERAL APPEARANCE: Awake, alert, oriented x 3, poor historian, in no visible distress. Generalized weakness. VITAL SIGNS: Blood pressure 148/68, heart rate of 65 beats per minute, breathing 17 times a minute, temperature 98 degrees Fahrenheit. HEENT AND NECK: Extraocular movements are intact. Sclerae are anicteric. Oral mucosa is moist and clean. No obvious facial weakness. Neck is supple without any lymphadenopathy. No thyromegaly. No JVD. No carotid arterial bruits. LUNGS: Clear to auscultation. No wheezing. No rhonchi. CARDIOVASCULAR SYSTEM: Heart rate is regular in rate and rhythm. S1 and S2 normally audible. No significant murmur or any other abnormal cardiac sounds. ABDOMEN: Soft, nontender. No obvious organomegaly. Bowel sounds are present. No obvious herniation. EXTREMITIES: Without significant cyanosis or edema. Warm to touch. CENTRAL NERVOUS SYSTEM: Alert and oriented x 3. Cranial nerves II-XII are [place], [place] PATIENT HISTORY AND PHYSICAL EXAM [facility]: [id number] UNIT #: [id number] ROOM: 521 DOCTOR: SALAZAR PADILLA MD BIRTHDATE: [birth year] intact. Speech is normal. The patient is able to move all extremities. Normal muscle strength. Deep tendon reflexes are equal on both sides. Plantars were downgoing. IMPRESSION AND PLAN: 1. The patient with chronic upper gastrointestinal bleed with hemoglobin of 6.6. She received blood transfusion and if she continues to bleed like this, her Eliquis would have to be stopped. 2. Chronic atrial fibrillation. The patient kept on Eliquis as recommended for prophylaxis and high risk for cerebrovascular accident. 3. Gastroesophageal reflux disease and esophagitis, asymptomatic with omeprazole, which is being continued. 4. Chronic constipation, treated with Colace. 5. Chronic atrial fibrillation. The patient treated with amiodarone. Because of recurrent GI bleed and the patient requiring blood transfusion, I will stop her apixaban, which appears to be too high risk to give her, considering her chronic GI bleed and the patient requiring blood transfusion. GI bleeding is also risk to her life, so we will have to take the high risk for stroke caused by atrial fibrillation in comparison. 6. The patient with organoaxial rotation of the stomach with recurrent vomiting and she is considered too high of a risk for surgery. The patient maintains DNR comfort care code status. I discussed all this with her eldest daughter, who was present with her in the office in the hospital today and she agrees with treating the patient conservatively. 7. Coronary artery disease of [place] vessels without chest pains. SALAZAR PADILLA MD CM:HISPHYS:PATIENT HISTORY AND PHYSICAL EXAMINATION 31 49 SALAZAR PADILLA MD [id number]/12/[id number] interface
[2018-09-13 01:00] VITALS: BP 136/55
[2018-09-13 02:05] VITALS: BP 125/55
[2018-09-13 04:00] VITALS: BP 147/71
[2018-09-13 06:58] LABS: BASO % 0.4 % (0.0-1.0); EOS # 0.2 10*3/uL (0.0-0.4); EOS % 3.1 % (1.0-4.0); LYMPH # 1.2 10*3/uL (1.3-4.4); LYMPH % 15.1 % (27.0-41.0); MEAN CELL VOLUME 79.6 fl (81.0-99.0); MEAN CORPUSCULAR HGB 24.4 pg (27.0-31.0); MEAN CORPUSCULAR HGB CONC 30.7 g/dl (33.0-37.0); MEAN PLATELET VOLUME 8.7 fl (9.6-12.3); MONO # 0.8 10*3/uL (0.1-1.0); NEUT # 5.5 10*3/uL (2.3-7.9); NEUT % 70.9 % (47.0-73.0); PLATELET COUNT AUTOMATED 338 10*3/uL (130-400); RED BLOOD COUNT 3.77 10*6/uL (4.10-5.10); RED CELL DISTRI WIDTH 16.5 % (0-14.5); WHITE BLOOD COUNT 7.8 10*3/uL (4.8-10.8)
[2018-09-13 07:05] LABS: HEMOGLOBIN 9.2 g/dl (12.0-16.0)
[2018-09-13 08:00] VITALS: BP 134/64
[2018-10-20] MEDS ORDERED: PROTONIX40 MG PO (20:33)
== END 2018-09-13 12:41 | disposition other institution (70) | DRG 378 ==
LOC: ED 15:27 → 5E 15:51 → EDHOLD 15:51 → 5E 16:21
PROVIDERS: ADMIT Internal Medicine
PROC: 30233N1 Transfusion of Nonautologous Red Blood Cells into Peripheral Vein, Percutaneous Approach (ICD-10-PCS; principal; 2018-09-12)
DX: K92.2 Gastrointestinal hemorrhage, unspecified (principal); N18.4 Chronic kidney disease, stage 4 (severe); I50.30 Unspecified diastolic (congestive) heart failure; I13.0 Hypertensive heart and chronic kidney disease with heart failure and stage 1 through stage 4 chronic kidney disease, or unspecified chronic kidney disease; F33.0 Major depressive disorder, recurrent, mild; R62.7 Adult failure to thrive; J44.9 Chronic obstructive pulmonary disease, unspecified; I48.2 Chronic atrial fibrillation; K21.0 Gastro-esophageal reflux disease with esophagitis; K59.09 Other constipation; D50.0 Iron deficiency anemia secondary to blood loss (chronic); I25.10 Atherosclerotic heart disease of native coronary artery without angina pectoris; K44.9 Diaphragmatic hernia without obstruction or gangrene; Z86.73 Personal history of transient ischemic attack (TIA), and cerebral infarction without residual deficits; Z99.81 Dependence on supplemental oxygen; Z68.25 Body mass index [BMI] 25.0-25.9, adult; Z95.2 Presence of prosthetic heart valve; Z95.1 Presence of aortocoronary bypass graft; Z79.01 Long term (current) use of anticoagulants; Z79.899 Other long term (current) drug therapy; Z88.5 Allergy status to narcotic agent; Z88.0 Allergy status to penicillin; Z91.040 Latex allergy status

== ENCOUNTER 2018-09-29 23:45 | Inpatient (IN) | payer OTHER, MEDICAID ==
[~2018-09-29] VITALS: Ht 165.1 cm; Wt 64.0 kg
--- NOTE | ~2018-09-29 | PR ---
[place], [place] PROGRESS NOTE NAME: JEN GAN UNIT #: [id number] ROOM: 521 DOCTOR: ANGELIKA DAIGLE MD BIRTHDATE: [birth year] DOS: 10/02/2018 SUBJECTIVE: She was noted comfortable at this time, resting on the bed. Shortness of breath of the patient has been still noted with intermittent coughing, which remains nonproductive. Denies symptoms of fever or chills. Denies symptoms of hemoptysis or any chest pain. Denies symptoms of nausea or vomiting. OBJECTIVE: VITAL SIGNS: For the patient which were recorded showed the temperature noted as normal. The respiratory rate of the patient recorded as 18, heart rate 52, blood pressure 150/70-146/88. The pulse oxygen saturation on 2 liters nasal cannula 100% saturation at rest was recorded. HEENT: Head was atraumatic. Eyes nonicterus. NECK: Supple. CARDIOVASCULAR: S1, S2 is audible. LUNGS: Expiratory wheezing, no crackles. ABDOMEN: Soft, bowel sounds present. EXTREMITIES: Without any acute edema. LABORATORY DATA: The patient's blood cultures, no bacterial growth. CMP of the patient this morning, BUN 26, creatinine was normal. The CBC of the patient this morning, WBC count normal, platelet count were normal. IMPRESSION: Acute exacerbation of chronic obstructive pulmonary disease with acute tracheobronchitis of the patient was noted. Chest x-ray of the patient that was done yesterday was noted with cardiomegaly without acute pulmonary infiltration. There was no evidence of acute pneumonia. PLAN OF MANAGEMENT: Continuation of the oxygen supplementation and bronchodilators for this patient at this time. Continue Solu-Medrol current dose for the next 24 hours and monitor respiratory status. Change in medical management upon availability of any new information. Usual care. [place], [place] PROGRESS NOTE NAME: JEN GAN UNIT #: [id number] ROOM: 521 DOCTOR: ANGELIKA DAIGLE MD BIRTHDATE: [birth year] ANGELIKA TAVARES MD CM:PNTRANS [id number] ANGELIKA HOOKER MD 10/03/18 0529 interface
--- NOTE | ~2018-09-29 | WRIGHTHP ---
[place], [place] PATIENT HISTORY AND PHYSICAL EXAM NAME: JEN GAN [facility] #: [id number] UNIT #: [id number] ROOM: 521 DOCTOR: SALAZAR PADILLA MD BIRTHDATE: [birth year] DOS: 09/30/2018 HISTORY OF PRESENT ILLNESS: The patient presented to the Emergency Department with complaints of right-sided weakness. In the Emergency Department, she was evaluated and not found to have any new weakness, but she was diagnosed as having pneumonia and admission and further management. After admission, the patient is breathing comfortably and has no new complaints. No nausea or vomiting. No chest pain, no GI or urinary symptoms. SYSTEMS REVIEW: RESPIRATORY: Some increased shortness of breath. GASTROINTESTINAL: No nausea, vomiting, diarrhea, constipation, but she has chronic recurrent vomiting from her stomach issues. CARDIOVASCULAR SYSTEM: No chest pains or palpitations. PAST MEDICAL HISTORY: Positive for: 1. Blood loss anemia and upper GI bleed. 2. Chronic atrial fibrillation, anticoagulation stopped because of recurrent GI bleed and anemia. 3. Hiatal hernia with organoaxial rotation of the stomach, causing recurrent vomiting. 4. Adult failure to thrive. 5. Coronary artery disease of the [place] vessels, coronary artery bypass graft. 6. Major depression, recurrent, mild. 7. COPD. FAMILY HISTORY: Noncontributory. MEDICATIONS: Colace, amiodarone, omeprazole, metoclopramide, dicyclomine, Tylenol, DuoNeb. PHYSICAL EXAMINATION: GENERAL: Alert, oriented x 3, but a poor historian, in no visible distress. Generalized weakness. VITAL SIGNS: Blood pressure 154/60, heart rate is 65 beats per minute, breathing 18 times per minute, temperature 99 degrees Fahrenheit. HEENT AND NECK: Extraocular movements are intact. Sclerae are anicteric. Oral mucosa is moist and clean. No obvious facial weakness. Neck is supple without any lymphadenopathy. No thyromegaly. No JVD. No carotid arterial bruits. LUNGS: Clear to auscultation. No wheezing. No rhonchi. CARDIOVASCULAR SYSTEM: Heart rate is regular in rate and rhythm. S1 and S2 normally audible. No significant murmur or any other abnormal cardiac sounds. ABDOMEN: Soft, nontender. No obvious organomegaly. Bowel sounds are present. No obvious herniation. EXTREMITIES: Without significant cyanosis or edema. Warm to touch. CENTRAL NERVOUS SYSTEM: Alert and oriented x 3. Cranial nerves II-XII are intact. Speech is normal. The patient is able to move all extremities. Normal muscle strength. Deep tendon reflexes are equal on both sides. Plantars were downgoing. IMPRESSION: [place], [place] PATIENT HISTORY AND PHYSICAL EXAM [id number] UN[facility] #: [id number] ROOM: 521 DOCTOR: SALAZAR PADILLA MD BIRTHDATE: [birth year] 1. The patient with acute right basilar pneumonia, right lower lung, suspected to be aspiration, being treated with antibiotics and I will get a pulmonary consult. The patient is breathing normally now. The patient does have large hiatal hernia. 2. Large hiatal hernia and organoaxial rotation with recurrent nausea, vomiting, presently asymptomatic. 3. Chronic constipation, treated and controlled with Colace. 4. Gastroesophageal reflux disease and esophagitis, treated and asymptomatic with Protonix. SALAZAR PADILLA MD CM:HISPHYS:PATIENT HISTORY AND PHYSICAL EXAMINATION 08 31 SALAZAR PADILLA MD 09/30/181931 interface
--- NOTE | ~2018-09-29 | PR ---
[place], [place] PROGRESS NOTE NAME: JEN GAN [facility] #: [id number] UNIT #: [id number] ROOM: 521 DOCTOR: SALAZAR PADILLA MD BIRTHDATE: [birth year] DOS: 10/01/2018 SUBJECTIVE: The patient is still having cough and chest congestion and giving us a sputum specimen for cultures. OBJECTIVE: GENERAL APPEARANCE: Generalized weakness. VITAL SIGNS: Blood pressure 142/54, heart rate of 54 beats per minute, breathing 20 times per minute, temperature 98.2 degrees Fahrenheit. HEENT AND NECK: Exam within normal limits. CARDIOVASCULAR SYSTEM: Heart rate is regular in rate and rhythm. S1 and S2 normally audible. LUNGS: Clear to auscultation. ABDOMEN: Soft, nontender. No obvious organomegaly. Bowel sounds are present. EXTREMITIES: Without significant cyanosis or edema. IMPRESSION: 1. The patient with acute right basilar pneumonia and right lower lung, suspected for aspiration to undergo modified barium swallowing study and Dr. Arnold, the patient ombudsperson, is following. 2. Large hiatal hernia and organoaxial rotation with recurrent nausea and vomiting, presently asymptomatic. 3. Chronic constipation, treated and controlled with Colace. 4. Gastroesophageal reflux disease and esophagitis, asymptomatic with Protonix. SALAZAR PADILLA MD CM:PNTRANS 07 SALAZAR PADILLA MD 10/02/18 0053 interface
--- NOTE | ~2018-09-29 | EKG ---
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 [employer] Assembly: Waldemar Hughes : 1945 Requested By: DEMETRIUS MENEZES Order Number: [id number] Reading MD: Lina Miller Measurements Intervals [place] Rate: 70 P: -26 ME: 179 QRS: -3 QRSD: 93 T: 55 QT: 365 QTc: 394 Interpretive Statements Sinus rhythm Probable left ventricular hypertrophy Nonspecific T abnrm, anterolateral leads Baseline wander in lead(s) II,III,aVF Compared to ECG 09/08/2018 16:28:15 No significant changes Electronically Signed On 10-01-2018 11:04:59 PDT by Lina Miller CM:EKGRPT:ELECTROCARDIOGRAM REPORT [id number] DEMETRIUS BLACKBURN DRAFT REPORT DEMETRIUS MENEZES DO
--- NOTE | ~2018-09-29 | CON ---
[place], [place] RE[facility] CONSULTATION [id number] UN[facility] #: [id number] ROOM: 521 DOCTOR: ANGELIKA DAIGLE MD BIRTHDATE: [birth year] DOS: 10/01/2018 PULMONARY CONSULTATION AND EVALUATION AND MANAGEMENT REASON FOR CONSULTATION: Requested for assessment of current acute pneumonia. The patient was also reported with a positive influenza A infection. Services consultation requested by Dr. Sheppard. HISTORY OF PRESENT ILLNESS: A 72-year-old white female patient was noted with general weakness, fatigue at home with increased symptoms of shortness of breath and also nonproductive cough, presented to the Emergency Room on the 09/29/2018 of this month at night. She has been reporting symptoms of general weakness and fatigue, thought that she have acute focal neurologic deficit of the left extremity. The patient has not been reported symptoms of chest pain. Shortness of breath was noted with symptoms of nonproductive cough and general weakness as well. The patient denies any symptoms of hemoptysis. The patient currently resides in the [facility]. She has been assessed in the Emergency Room. The patient reported with acute pneumonia and also found to be positive for influenza A infection. REVIEW OF SYSTEMS: CONSTITUTIONAL: Fatigue and tiredness noted without any symptoms of fever or chills. EYES: Denies any burning, redness, or tenderness. EARS, NOSE, AND THROAT: Denies sore throat, hoarseness, otalgia, postnasal drainage or epistaxis. CARDIOVASCULAR: Denies angina pain, edema, pain of the lower extremities. GASTROINTESTINAL: Dysphagia, nausea, vomiting, diarrhea, abdominal pain, hematemesis, melena, or hematochezia. SKIN: Denies abnormal lesions or rashes. CENTRAL NERVOUS SYSTEM: The patient was reported possible focal deficit of the extremity, but seemed to be not present patient upon assessment in the Emergency Room. Remaining systems were reviewed. They were noted all negative. PAST MEDICAL HISTORY: Noted with history of: 1. COPD. 2. Chronic hypoxic respiratory failure. 3. Obstructive sleep apnea disorder. 4. History of past CVA with complete neurologic recovery. 5. History of gastric volvulus not noted a surgical candidate because of the significant comorbid condition of the patient and high mortality with the procedure. 6. Chronic kidney disease stage 4. 7. Chronic hypercapnic respiratory failure. 8. Anxiety and depression. 9. Coronary artery disease. 10. Acute congestive heart failure, diastolic dysfunction. 11. Essential hypertension. [place], [place] REPORT OF CONSULTATION NAME: JEN GAN UNIT #: [id number] ROOM: 521 DOCTOR: CHAITANYA HOOKER MD,ANGELIKA BIRTHDATE: [birth year] 12. Gastroesophageal reflux. 13. Decrease in ambulation. PAST SURGICAL HISTORY: 1. Cataract extraction with lens implantation. 2. Aortic valve replacement. 3. Acute coronary bypass grafting in 2013. 4. Aortic valve replacement in 2013. SOCIAL HISTORY: The patient currently resides in the nursing facility noted tobacco age of [age] years old, 1 pack of cigarettes per day until 2012. She is and has 5 children. FAMILY HISTORY: The patient's father at 82 years complication of prostate cancer. Mother 40 years old, complication of bowel obstruction. MEDICATIONS: Listed at present time of admission is Solu-Medrol 40 mg b.i.d., amiodarone, Reglan, Protonix, DuoNeb, Zithromax and Rocephin. DRUG ALLERGIES: The patient was noted as allergy to the CODEINE. PHYSICAL EXAMINATION: GENERAL: This is a 72-year-old female, currently sitting on the chair this morning at the time of the assessment. Height of 5 feet 5 inches, weight 141 pounds, BMI 23.4. Using oxygen supplementation via nasal cannula. VITAL SIGNS: The patient is a normal temperature since admission, respiratory rate 18-20. Height 51-65, blood pressure 118/60-137/62. Pulse oxygen saturation was recorded on 2 liters nasal cannula 98% saturation. HEENT: Examination shows head was atraumatic. Eyes nonicterus. NECK: Supple. CARDIOVASCULAR: S1, S2 is audible. LUNGS: Decreased breath sounds were noted in the lungs with expiratory wheezing. There were occasional crackles present in both lower lung bases. ABDOMEN: Soft, nontender. Bowel sounds present. EXTREMITIES: The patient without any acute edema. MUSCULOSKELETAL: Without acute deformities. CENTRAL NERVOUS SYSTEM: Cranial nerves 2-12 intact. LABORATORY DATA: CBC: WBC count 6.3, hemoglobin 9.6, hematocrit 32.5, platelet count was normal. CMP that was done 09/29/2018, normal BUN and creatinine and other electrolytes. Albumin 3.0. Lactic acid 1.5 yesterday. CBC, WBC count 7.3, hemoglobin 11, platelet count normal. Influenza A and B, nasal washing antigen noted positive influenza A infection. PT/INR for the patient was noted as normal yesterday. Chest x-ray rarely one-view was done showed large hiatal hernia patient was also noted possibility infiltration or atelectasis in lower lung cannot be excluded. IMPRESSION: 1. The patient has been currently admitted to the hospital noted a positive [place], [place] REPORT OF CONSULTATION NAME: JEN GAN UNIT #: [id number] ROOM: 521 DOCTOR: CHAITANYA HOOKER MD,ANGELIKA BIRTHDATE: [birth year] influenza infection with acute exacerbation of chronic obstructive pulmonary disease, possible pneumonia in the lower lung and/or atelectasis would be considered most likely would consider atelectasis than pneumonia with mucus impaction. 2. Chronic hypercapnic hypoxic respiratory failure, stable. 3. General weakness and fatigue related to current acute viral illness. PLAN OF MANAGEMENT: The patient will be started on the Tamiflu for the management, currently include influenza infection. Obtain the chest x-ray, PA lateral view today for the patient clear identification of the current ongoing abnormal process in the lung. Antibiotics will be continued until the pneumonia is excluded. Continue Solu-Medrol for the medical acute exacerbation of COPD. Monitor respiratory status. Order the sputum for Gram stain culture as well with additional treatment changes will be recommended based on the progression of her illness. Thank you for allowing me to participate in the care of this patient. ANGELIKA TAVARES MD CM:CONSTR:REPORT OF CONSULTATION 1355 10/02/18 0400 interface
--- NOTE | ~2018-09-29 | DS ---
[place], [place] DISCHARGE SUMMARY NAME: JEN GAN [facility] #: [id number] UNIT #: [id number] ROOM: 521 DOCTOR: SALAZAR PADILLA MD BIRTHDATE: [birth year] DOS: 10/02/2018 DISCHARGE DIAGNOSES: 1. Acute right basilar pneumonia versus atelectasis. 2. Large hiatal hernia and organoaxial rotation of the stomach with recurrent vomiting. 3. Chronic constipation. 4. Gastroesophageal reflux disease and esophagitis. 5. Old age advance adult failure to thrive. 6. Chronic atrial fibrillation. Anticoagulation was stopped because of recurrent upper gastrointestinal bleed. 7. History of blood loss anemia. 8. Coronary artery disease of the [place] vessels without chest pain and coronary artery bypass graft. 9. Major depression, recurrent, mild. 10. Chronic obstructive pulmonary disease. HOSPITAL COURSE: The patient presented to the Emergency Department at [facility], sent over from the longterm with increased shortness of breath and altered mental status. The patient was found to have right basilar pneumonia versus atelectasis. Aspiration was also suspected, but the patient has done very well after admission, she is alert, oriented, breathing normally and she was treated with antibiotics, which will be continued at longterm and will take aspiration precautions. The patient does have a large hiatal hernia. Large hiatal hernia with organoaxial rotation of the stomach with recurrent vomiting and is asymptomatic these days. Chronic constipation, treated and controlled with Colace. Gastroesophageal reflux disease and esophagitis, asymptomatic with Protonix. Chronic atrial fibrillation with controlled heart rates. The patient is not anticoagulated because of recurrent upper GI bleeds and blood loss anemia. Coronary artery disease of the [place] vessels without chest pains. Chronic obstructive pulmonary disease with chronic shortness of breath. The patient is not requiring oxygen any more. LABORATORY DATA: Blood cultures negative. BUN and creatinine, serum electrolytes normal. Albumin low at 3. Hemoglobin 9.9. DISCHARGE MANAGEMENT: Azithromycin 500 mg daily for 5 days, Augmentin 875 mg twice a day for a week, Tamiflu b.i.d. for 5 days for being influenza A positive, prednisone 20 mg b.i.d. for 5 days, dicyclomine 20 mg q.i.d., amiodarone 200 mg daily, metoclopramide 10 mg every 8 hours, Protonix 40 mg a day, DuoNeb q.i.d. p.r.n. for shortness of breath. [place], [place] DISCHARGE SUMMARY NAME: JEN GAN UNIT #: [id number] ROOM: 521 DOCTOR: SALAZAR PADILLA MD BIRTHDATE: [birth year] SALAZAR PADILLA MD CM:DISCHARG [id number] SALAZAR PADILLA MD 10/02/181749 interface
[2018-09-29 23:47] VITALS: BP 140/90
[2018-09-30] VITALS (8 sets, daily range): BP systolic 103–164; BP diastolic 47–77
[2018-09-30 00:34] LABS: BASO % 0.4 % (0.0-1.0); EOS % 0.5 % (1.0-4.0); HEMATOCRIT 36.9 % (37.0-47.0); HEMOGLOBIN 11.1 g/dl (12.0-16.0); LYMPH # 1.5 10*3/uL (1.3-4.4); LYMPH % 19.8 % (27.0-41.0); MEAN CELL VOLUME 79.9 fl (81.0-99.0); MEAN CORPUSCULAR HGB CONC 30.1 g/dl (33.0-37.0); MEAN PLATELET VOLUME 9.1 fl (9.6-12.3); MONO % 13.1 % (3.0-9.0); NEUT # 4.8 10*3/uL (2.3-7.9); NEUT % 65.9 % (47.0-73.0); PLATELET COUNT AUTOMATED 221 10*3/uL (130-400); RED BLOOD COUNT 4.62 10*6/uL (4.10-5.10); RED CELL DISTRI WIDTH 17.7 % (0-14.5); WHITE BLOOD COUNT 7.3 10*3/uL (4.8-10.8)
[2018-09-30 00:43] LABS: INTERNATIONAL NORM RATIO 1.1 (2.0-3.5)
[2018-09-30 01:04] LABS: ALBUMIN 3.4 gm/dl (3.1-4.5); ALKALINE PHOSPHATASE 73 U/L (45-117); BUN 17 mg/dl (7-24); CHLORIDE 103 mmol/L (98-107); CREATININE 1.04 mg/dL (0.55-1.02); POTASSIUM 4.3 mmol/L (3.5-5.1); SGOT/AST 18 IU/L (3-35); SGPT/ALT 14 U/L (12-78); SODIUM 137 mmol/L (136-145); TOTAL PROTEIN 8.3 gm/dL (6.4-8.2)
[2018-09-30 01:09] LABS: TROPONIN I < 0.015 ng/ml (<0.045)
[2018-09-30 01:12] LABS: BILIRUBIN NEGATIVE (NEGATIVE); BLOOD NEGATIVE (NEGATIVE); CLARITY CLEAR (CLEAR); COLOR YELLOW (YELLOW); GLUCOSE NEGATIVE (NEGATIVE); KETONE TRACE (NEGATIVE); LEUKO ESTERASE NEGATIVE (NEGATIVE); NITRITE NEGATIVE (NEGATIVE); SPECIFIC GRAVITY >= 1.030 (1.005-1.030)
[2018-09-30 01:18] LABS: HYALINE CAST 25-30; MUCOUS TRACE; RBC 0-2 rbc/hpf (0-2); WBC 0-2 wbc/hpf (0-5)
[2018-10-01] VITALS: BP 137/62
[2018-10-01 08:00] VITALS: BP 152/74
[2018-10-01 12:00] VITALS: BP 129/58
[2018-10-01 16:00] VITALS: BP 142/54
[2018-10-01 20:00] VITALS: BP 166/73
[2018-10-02] VITALS: BP 175/82
[2018-10-02 00:30] VITALS: BP 146/88
[2018-10-02 06:49] LABS: HEMATOCRIT 32.8 % (37.0-47.0); HEMOGLOBIN 9.9 g/dl (12.0-16.0); LYMPH # 1.3 10*3/uL (1.3-4.4); LYMPH % 24.3 % (27.0-41.0); MEAN CELL VOLUME 79.6 fl (81.0-99.0); MEAN CORPUSCULAR HGB CONC 30.2 g/dl (33.0-37.0); MEAN PLATELET VOLUME 9.6 fl (9.6-12.3); MONO # 0.6 10*3/uL (0.1-1.0); MONO % 10.8 % (3.0-9.0); NEUT # 3.4 10*3/uL (2.3-7.9); NEUT % 64.7 % (47.0-73.0); PLATELET COUNT AUTOMATED 192 10*3/uL (130-400); RED BLOOD COUNT 4.12 10*6/uL (4.10-5.10); RED CELL DISTRI WIDTH 17.5 % (0-14.5); WHITE BLOOD COUNT 5.3 10*3/uL (4.8-10.8)
[2018-10-02 07:15] LABS: CHLORIDE 106 mmol/L (98-107); POTASSIUM 4.2 mmol/L (3.5-5.1); SODIUM 140 mmol/L (136-145)
[2018-10-02 07:26] LABS: ALKALINE PHOSPHATASE 58 U/L (45-117); BUN 26 mg/dl (7-24); CREATININE 0.99 mg/dL (0.55-1.02); SGOT/AST 14 IU/L (3-35); SGPT/ALT 11 U/L (12-78); TOTAL PROTEIN 7.8 gm/dL (6.4-8.2)
[2018-10-02 08:00] VITALS: BP 150/70
[2018-10-02 12:00] VITALS: BP 158/67
[2018-10-02 16:00] VITALS: BP 129/53
[2018-10-02] MEDS ORDERED: TAMIFLU 75MG CA75 MG PO (17:04)
[2018-10-02] MEDS ORDERED: AUGMENTIN 875-875 MG PO (17:07)
[2018-10-02] MEDS ORDERED: AZITHROMYCIN500 M2 PO (17:07)
[2018-10-02] MEDS ORDERED: MEDROL DOSEPAK4 MG PO (17:15)
[2018-10-20] MEDS ORDERED: PROTONIX40 MG PO (20:33)
== END 2018-10-02 20:30 | DRG 190 ==
LOC: ED 23:45 → 5E 09-30 03:05 → EDHOLD 09-30 03:05 → 5E 09-30 05:07
PROVIDERS: Emergency Medicine; Internal Medicine Critical Care Medicine; ADMIT Internal Medicine
DX: J44.0 Chronic obstructive pulmonary disease with (acute) lower respiratory infection (principal); J10.00 Influenza due to other identified influenza virus with unspecified type of pneumonia; J96.11 Chronic respiratory failure with hypoxia; J96.12 Chronic respiratory failure with hypercapnia; J98.11 Atelectasis; F33.0 Major depressive disorder, recurrent, mild; N18.4 Chronic kidney disease, stage 4 (severe); I13.0 Hypertensive heart and chronic kidney disease with heart failure and stage 1 through stage 4 chronic kidney disease, or unspecified chronic kidney disease; I50.32 Chronic diastolic (congestive) heart failure; K44.9 Diaphragmatic hernia without obstruction or gangrene; K21.0 Gastro-esophageal reflux disease with esophagitis; J44.1 Chronic obstructive pulmonary disease with (acute) exacerbation; J20.9 Acute bronchitis, unspecified; F41.9 Anxiety disorder, unspecified; K59.09 Other constipation; Z96.1 Presence of intraocular lens; I25.10 Atherosclerotic heart disease of native coronary artery without angina pectoris; R62.7 Adult failure to thrive; I48.2 Chronic atrial fibrillation; Z86.73 Personal history of transient ischemic attack (TIA), and cerebral infarction without residual deficits; Z87.440 Personal history of urinary (tract) infections; Z88.5 Allergy status to narcotic agent; I25.2 Old myocardial infarction; Z95.2 Presence of prosthetic heart valve; Z95.1 Presence of aortocoronary bypass graft; Z87.891 Personal history of nicotine dependence; Z83.79 Family history of other diseases of the digestive system; Z80.42 Family history of malignant neoplasm of prostate; Z98.49 Cataract extraction status, unspecified eye; Z68.23 Body mass index [BMI] 23.0-23.9, adult

== ENCOUNTER 2018-12-21 02:06 | Inpatient (IN) | payer OTHER, MEDICAID ==
[~2018-12-21] VITALS: Ht 152.4 cm; Wt 55.5 kg
[2018-12-21] VITALS (7 sets, daily range): BP systolic 118–168; BP diastolic 65–82
--- NOTE | ~2018-12-21 | PR ---
[place], [place] PROGRESS NOTE NAME: JEN GAN UNIT #: [id number] ROOM: 426 DOCTOR: MARISELA UMANZOR MD BIRTHDATE: [birth year] DOS: 12/30/2018 ADDENDUM This is addendum to the progress note done by the nurse practitioner, Caridad Harrington. I reviewed the labs and imaging and made the necessary changes in the note. Marisela Umanzor MD CM:PNTRANS [id number] MARISELA UMANZOR MD 01/03/19 0438 interface
--- NOTE | ~2018-12-21 | PR ---
[place], [place] PROGRESS NOTE NAME: JEN GAN UNIT #: [id number] ROOM: 426 DOCTOR: LINDA INMAN BIRTHDATE: [birth year] DOS: 12/30/2018 SUBJECTIVE: The patient is a 73-year-old -[place] female who is being followed for healthcare-associated pneumonia with CRE, Acinetobacter. She completed 7 days of treatment. She is off all antibiotics at this point. History is obtained per review of the chart. The patient herself is unresponsive, has eyes open, but no tracking or meaningful response. She has been afebrile. There is no documented emesis or diarrhea. LABORATORY DATA: No new labs today. OBJECTIVE: VITAL SIGNS: Temperature 97.5, pulse 81, respirations 17, BP 138/69. GENERAL: A 73-year-old -[place] female in no acute distress. Eyes open, but no tracking or meaningful response. HEAD, EYES, EARS, NOSE AND THROAT: Normocephalic. Unable to observe for thrush and unable to open the oropharynx, trach. She is on JANES. Trach site, no purulent discharge or cellulitis. Does have a small amount of clear secretions from the trach. LUNGS: Clear to auscultation bilaterally. Respirations even and unlabored. HEART: Regular rhythm. No murmur appreciated. ABDOMEN: Soft, nondistended. Positive bowel sounds. PEG site, no purulent discharge or cellulitis. EXTREMITIES: No edema or clubbing. SKIN: Warm, dry, free of rashes. ASSESSMENT AND PLAN: She has completed treatment for CRE, Acinetobacter pneumonia. Trach secretions currently clear. She is on no IV medications. She is awaiting transfer to a SNF. Her PICC line needs to be removed. OCTOBER STORM MCKEON [place], [place] PROGRESS NOTE NAME: JEN GAN UNIT #: [id number] ROOM: 426 DOCTOR: LINDA INMANOCTOBER BIRTHDATE: [birth year] Marisela Malviya, MD CM:PNTRANS [id number] [facility] 12/30/18 1453 interface
--- NOTE | ~2018-12-21 | EKG ---
[place], [place] ELECTROCARDIOGRAM REPORT NAME: JEN GAN UNIT #: [id number] ROOM: 426 DOCTOR: BRENDA DRAFT REPORT BIRTHDATE: [birth year] [facility] Test Date: 2018-12-21 Test Time: 02:36:27 Pat Name: JEN GAN Department: Room: 426 Gender: F Patients Transporter: April Mckeon : 1945 Requested By: LC LUCERO Order Number: [id number] Reading MD: Rigoberto Babb MD Measurements Intervals [place] Rate: 88 P: 8 ID: 159 QRS: -24 QRSD: 86 T: 17 QT: 344 QTc: 417 Interpretive Statements Sinus rhythm Probable left atrial enlargement Left ventricular hypertrophy Inferior infarct, old Compared to ECG 10/21/2018 01:14:30 Myocardial infarct finding now present Q waves no longer present Possible ischemia no longer present Electronically Signed On 12-21-2018 15:50:15 PDT by Rigoberto Babb MD CM:EKGRPT:ELECTROCARDIOGRAM REPORT [id number] 1550 LC BLACKBURN DRAFT REPORT LC LUCERO DO
[~2018-12-21 02:06] MED LIST changes: +AUGMENTIN 875-875 MG PO; +AZITHROMYCIN500 M2 PO; +MEDROL DOSEPAK4 MG PO; -METOCLOPRAMIDE10 MG PEG; +REGLAN10 M1 PEG; +TAMIFLU 75MG CA75 MG PO
[2018-12-21 02:51] LABS: HEMATOCRIT 27.3 % (37.0-47.0); HEMOGLOBIN 8.4 g/dl (12.0-16.0); MEAN CELL VOLUME 79.6 fl (81.0-99.0); MEAN CORPUSCULAR HGB 24.5 pg (27.0-31.0); MEAN CORPUSCULAR HGB CONC 30.8 g/dl (33.0-37.0); MEAN PLATELET VOLUME 9.7 fl (9.6-12.3); PLATELET COUNT AUTOMATED 285 10*3/uL (130-400); RED BLOOD COUNT 3.43 10*6/uL (4.10-5.10); RED CELL DISTRI WIDTH 15.8 % (0-14.5); WHITE BLOOD COUNT 23.7 10*3/uL (4.8-10.8)
[2018-12-21 03:09] LABS: TOTAL CELLS COUNTED 100 #CELLS
[2018-12-21 03:10] LABS: ALBUMIN 2.5 gm/dl (3.1-4.5); ALKALINE PHOSPHATASE 107 U/L (45-117); BUN 50 mg/dl (7-24); CHLORIDE 98 mmol/L (98-107); CREATININE 0.78 mg/dL (0.55-1.02); LIPASE 129 U/L (73-393); MICROCYTOSIS SLIGHT; PLATELET SUFFICIENCY NORMAL (NORMAL); POTASSIUM 4.3 mmol/L (3.5-5.1); SGOT/AST 20 IU/L (3-35); SGPT/ALT 23 U/L (12-78); SODIUM 136 mmol/L (136-145); TARGET CELLS FEW; TOTAL PROTEIN 7.1 gm/dL (6.4-8.2)
[2018-12-21 03:11] LABS: TROPONIN I < 0.015 ng/ml (<0.045)
[2018-12-21 04:49] LABS: BILIRUBIN NEGATIVE (NEGATIVE); BLOOD NEGATIVE (NEGATIVE); CLARITY SL CLOUDY (CLEAR); COLOR YELLOW (YELLOW); GLUCOSE NEGATIVE (NEGATIVE); KETONE NEGATIVE (NEGATIVE); LEUKO ESTERASE 3+ (NEGATIVE); NITRITE NEGATIVE (NEGATIVE); PH 8.5 (5.0-9.0)
[2018-12-21 04:58] LABS: BACTERIA 1+; RBC TNTC rbc/hpf (0-2)
[2018-12-21] MEDS ORDERED: ASPIRIN ADULT L81 M2 PEG (06:26)
[2018-12-21] MEDS ORDERED: LIPITOR20 MG PEG (06:29)
[2018-12-21] MEDS ORDERED: CALCIUM 500 +1 EAC1 PEG (06:30)
[2018-12-21] MEDS ORDERED: ELIQUIS5 M1 PEG (06:31)
[2018-12-21] MEDS ORDERED: PEPCID20 MG PEG (06:34)
[2018-12-21] MEDS ORDERED: LASIX40 MG PEG (06:35)
[2018-12-21] MEDS ORDERED: Ipratropium Brom3 ML INH ×2 (06:36→06:39)
[2018-12-21] MEDS ORDERED: ZYVOX600 MG PEG (06:40)
[2018-12-21] MEDS ORDERED: MERREM IV1 GM IV (06:40)
[2018-12-21] MEDS ORDERED: MIRALAX17 GM PEG (06:42)
[2018-12-21] MEDS ORDERED: TRAZODONE50 MG PEG (06:45)
[2018-12-22] VITALS: BP 164/80
[2018-12-22 04:35] VITALS: BP 150/80
[2018-12-22 06:52] LABS: BASO % 0.1 % (0.0-1.0); HEMATOCRIT 25.8 % (37.0-47.0); HEMOGLOBIN 7.9 g/dl (12.0-16.0); LYMPH # 0.9 10*3/uL (1.3-4.4); LYMPH % 8.5 % (27.0-41.0); MEAN CELL VOLUME 80.9 fl (81.0-99.0); MEAN CORPUSCULAR HGB 24.8 pg (27.0-31.0); MEAN CORPUSCULAR HGB CONC 30.6 g/dl (33.0-37.0); MEAN PLATELET VOLUME 9.6 fl (9.6-12.3); MONO # 0.5 10*3/uL (0.1-1.0); MONO % 4.8 % (3.0-9.0); NEUT # 8.5 10*3/uL (2.3-7.9); NEUT % 85.5 % (47.0-73.0); PLATELET COUNT AUTOMATED 259 10*3/uL (130-400); RED BLOOD COUNT 3.19 10*6/uL (4.10-5.10); RED CELL DISTRI WIDTH 15.9 % (0-14.5)
[2018-12-22 07:18] LABS: CHLORIDE 105 mmol/L (98-107); CHOLESTEROL 95 mg/dL (<200); FREE T4 1.13 ng/dl (0.76-1.46); HDL CHOLESTEROL 34 mg/dl (40-60); LDL CHOLESTEROL 45 mg/dL (9-159); PHOSPHOROUS 2.6 mg/dL (2.5-4.9); POTASSIUM 4.7 mmol/L (3.5-5.1); SODIUM 139 mmol/L (136-145); TRIGLYCERIDES 81 mg/dl (<150); VLDL CHOLESTEROL 16 mg/dL (6-40)
[2018-12-22 07:25] LABS: THYROID STIM HORMONE (HS) 0.758 uIU/ml (0.358-4.75)
[2018-12-22 07:26] LABS: BUN 33 mg/dl (7-24)
[2018-12-22 07:54] LABS: VITAMIN D, 25-HYDROXY 37.2 ng/mL (30-100)
[2018-12-22 11:27] VITALS: BP 126/84
[2018-12-22 15:45] VITALS: BP 144/79
[2018-12-22 20:00] VITALS: BP 140/90; BP 184/86
[2018-12-23] VITALS: BP 152/79
[2018-12-23 06:00] VITALS: BP 150/80
[2018-12-23 09:05] VITALS: BP 125/64
[2018-12-23 12:12] VITALS: BP 126/68
[2018-12-23 16:04] VITALS: BP 156/82
[2018-12-23 20:00] VITALS: BP 177/83
[2018-12-24 05:48] LABS: BUN 26 mg/dl (7-24); CHLORIDE 102 mmol/L (98-107); CREATININE 0.63 mg/dL (0.55-1.02); POTASSIUM 4.9 mmol/L (3.5-5.1); SODIUM 137 mmol/L (136-145)
[2018-12-24 07:54] LABS: BASO % 0.1 % (0.0-1.0); HEMATOCRIT 26.3 % (37.0-47.0); HEMOGLOBIN 8.3 g/dl (12.0-16.0); LYMPH # 1.5 10*3/uL (1.3-4.4); MEAN CELL VOLUME 79.2 fl (81.0-99.0); MEAN CORPUSCULAR HGB CONC 31.6 g/dl (33.0-37.0); MEAN PLATELET VOLUME 9.7 fl (9.6-12.3); MONO # 1.4 10*3/uL (0.1-1.0); MONO % 8.6 % (3.0-9.0); NEUT # 13.3 10*3/uL (2.3-7.9); NEUT % 80.7 % (47.0-73.0); PLATELET COUNT AUTOMATED 286 10*3/uL (130-400); RED BLOOD COUNT 3.32 10*6/uL (4.10-5.10); RED CELL DISTRI WIDTH 15.6 % (0-14.5); WHITE BLOOD COUNT 16.5 10*3/uL (4.8-10.8)
[2018-12-24 08:00] VITALS: BP 157/82
[2018-12-24 08:06] LABS: BUN 26 mg/dl (7-24); CHLORIDE 103 mmol/L (98-107); CREATININE 0.65 mg/dL (0.55-1.02); SODIUM 137 mmol/L (136-145)
[2018-12-24 12:00] VITALS: BP 159/87
[2018-12-24 16:00] VITALS: BP 159/86
[2018-12-24 20:00] VITALS: BP 150/80
[2018-12-25] VITALS: BP 148/70; BP 177/88
[2018-12-25 07:19] LABS: HEMATOCRIT 25.6 % (37.0-47.0); MEAN CELL VOLUME 79.8 fl (81.0-99.0); MEAN CORPUSCULAR HGB 24.9 pg (27.0-31.0); MEAN CORPUSCULAR HGB CONC 31.3 g/dl (33.0-37.0); MEAN PLATELET VOLUME 9.6 fl (9.6-12.3); NUCLEATED RED BLOOD CELL 0.1 % (0.0-0.0); PLATELET COUNT AUTOMATED 319 10*3/uL (130-400); RED BLOOD COUNT 3.21 10*6/uL (4.10-5.10); RED CELL DISTRI WIDTH 15.6 % (0-14.5); WHITE BLOOD COUNT 17.5 10*3/uL (4.8-10.8)
[2018-12-25 07:28] LABS: ALBUMIN 2.5 gm/dl (3.1-4.5); BUN 27 mg/dl (7-24); CHLORIDE 104 mmol/L (98-107); PHOSPHOROUS 2.4 mg/dL (2.5-4.9); POTASSIUM 5.6 mmol/L (3.5-5.1); SGOT/AST 22 IU/L (3-35); SODIUM 138 mmol/L (136-145); TOTAL PROTEIN 6.4 gm/dL (6.4-8.2)
[2018-12-25 07:30] LABS: ALKALINE PHOSPHATASE 122 U/L (45-117); SGPT/ALT 30 U/L (12-78)
[2018-12-25 08:00] VITALS: BP 123/55
[2018-12-25 08:23] LABS: MICROCYTOSIS SLIGHT; PLATELET SUFFICIENCY NORMAL (NORMAL); POLYCHROMASIA SLIGHT; TARGET CELLS FEW; TOTAL CELLS COUNTED 100 #CELLS; TOXIC GRANULATION SLIGHT
[2018-12-25 12:00] VITALS: BP 123/55
[2018-12-25 16:00] VITALS: BP 176/83
[2018-12-25 20:00] VITALS: BP 142/65
[2018-12-26] VITALS: BP 158/73
[2018-12-26 07:42] LABS: BUN 27 mg/dl (7-24); CHLORIDE 103 mmol/L (98-107); SODIUM 137 mmol/L (136-145)
[2018-12-26 07:44] LABS: CREATININE 0.58 mg/dL (0.55-1.02)
[2018-12-26 07:49] LABS: POTASSIUM 4.1 mmol/L (3.5-5.1)
[2018-12-26 08:00] VITALS: BP 136/71
[2018-12-26 11:19] LABS: HEMATOCRIT 25.9 % (37.0-47.0); HEMOGLOBIN 8.1 g/dl (12.0-16.0); MEAN CELL VOLUME 80.4 fl (81.0-99.0); MEAN CORPUSCULAR HGB 25.2 pg (27.0-31.0); MEAN CORPUSCULAR HGB CONC 31.3 g/dl (33.0-37.0); MEAN PLATELET VOLUME 9.9 fl (9.6-12.3); NUCLEATED RED BLOOD CELL 0.1 % (0.0-0.0); PLATELET COUNT AUTOMATED 363 10*3/uL (130-400); RED BLOOD COUNT 3.22 10*6/uL (4.10-5.10); RED CELL DISTRI WIDTH 15.9 % (0-14.5); WHITE BLOOD COUNT 23.6 10*3/uL (4.8-10.8)
[2018-12-26 12:00] VITALS: BP 137/73
[2018-12-26 12:06] LABS: PLATELET SUFFICIENCY NORMAL (NORMAL); TOTAL CELLS COUNTED 100 #CELLS
[2018-12-26 16:00] VITALS: BP 133/67
[2018-12-26 20:00] VITALS: BP 130/64
[2018-12-27] VITALS: BP 132/76
[2018-12-27 06:11] LABS: HEMATOCRIT 25.3 % (37.0-47.0); HEMOGLOBIN 7.9 g/dl (12.0-16.0); MEAN CELL VOLUME 79.6 fl (81.0-99.0); MEAN CORPUSCULAR HGB 24.8 pg (27.0-31.0); MEAN CORPUSCULAR HGB CONC 31.2 g/dl (33.0-37.0); MEAN PLATELET VOLUME 9.4 fl (9.6-12.3); PLATELET COUNT AUTOMATED 352 10*3/uL (130-400); RED BLOOD COUNT 3.18 10*6/uL (4.10-5.10); RED CELL DISTRI WIDTH 16.3 % (0-14.5); WHITE BLOOD COUNT 24.7 10*3/uL (4.8-10.8)
[2018-12-27 06:35] LABS: TOTAL CELLS COUNTED 100 #CELLS
[2018-12-27 06:36] LABS: ALBUMIN 2.3 gm/dl (3.1-4.5); ALKALINE PHOSPHATASE 121 U/L (45-117); BUN 26 mg/dl (7-24); CHLORIDE 103 mmol/L (98-107); CREATININE 0.63 mg/dL (0.55-1.02); POLYCHROMASIA SLIGHT; POTASSIUM 4.3 mmol/L (3.5-5.1); SGOT/AST 18 IU/L (3-35); SGPT/ALT 27 U/L (12-78); SODIUM 137 mmol/L (136-145); TOTAL PROTEIN 5.2 gm/dL (6.4-8.2)
[2018-12-27 06:38] LABS: PLATELET SUFFICIENCY NORMAL (NORMAL)
[2018-12-27 08:00] VITALS: BP 108/65
[2018-12-27 12:00] VITALS: BP 100/52
[2018-12-27 16:00] VITALS: BP 88/66
[2018-12-27 19:22] VITALS: BP 125/62
[2018-12-27 20:00] VITALS: BP 140/68
[2018-12-28] VITALS: BP 137/65
[2018-12-28 05:52] LABS: ALBUMIN 2.4 gm/dl (3.1-4.5); ALKALINE PHOSPHATASE 123 U/L (45-117); BUN 22 mg/dl (7-24); CHLORIDE 106 mmol/L (98-107); CREATININE 0.74 mg/dL (0.55-1.02); POTASSIUM 4.6 mmol/L (3.5-5.1); SGOT/AST 18 IU/L (3-35); SGPT/ALT 27 U/L (12-78); SODIUM 138 mmol/L (136-145); TOTAL PROTEIN 5.8 gm/dL (6.4-8.2)
[2018-12-28 06:11] LABS: HEMATOCRIT 25.8 % (37.0-47.0); MEAN CELL VOLUME 79.9 fl (81.0-99.0); MEAN CORPUSCULAR HGB 24.8 pg (27.0-31.0); MEAN PLATELET VOLUME 9.8 fl (9.6-12.3); PLATELET COUNT AUTOMATED 347 10*3/uL (130-400); RED BLOOD COUNT 3.23 10*6/uL (4.10-5.10); RED CELL DISTRI WIDTH 16.6 % (0-14.5); WHITE BLOOD COUNT 23.2 10*3/uL (4.8-10.8)
[2018-12-28 06:47] LABS: TOTAL CELLS COUNTED 100 #CELLS
[2018-12-28 06:50] LABS: MICROCYTOSIS SLIGHT; PLATELET SUFFICIENCY NORMAL (NORMAL); POLYCHROMASIA SLIGHT; SCHISTOCYTES FEW; TARGET CELLS FEW
[2018-12-28 08:00] VITALS: BP 117/71
[2018-12-28 12:00] VITALS: BP 136/64
[2018-12-28 16:00] VITALS: BP 116/54
[2018-12-28 20:00] VITALS: BP 113/66
[2018-12-29] VITALS: BP 123/63
[2018-12-29 06:55] LABS: HEMATOCRIT 26.2 % (37.0-47.0); HEMOGLOBIN 8.1 g/dl (12.0-16.0); MEAN CELL VOLUME 79.4 fl (81.0-99.0); MEAN CORPUSCULAR HGB 24.5 pg (27.0-31.0); MEAN CORPUSCULAR HGB CONC 30.9 g/dl (33.0-37.0); MEAN PLATELET VOLUME 9.3 fl (9.6-12.3); PLATELET COUNT AUTOMATED 333 10*3/uL (130-400); RED CELL DISTRI WIDTH 16.6 % (0-14.5)
[2018-12-29 07:02] LABS: ALBUMIN 2.3 gm/dl (3.1-4.5); ALKALINE PHOSPHATASE 118 U/L (45-117); BUN 23 mg/dl (7-24); CHLORIDE 104 mmol/L (98-107); CREATININE 0.85 mg/dL (0.55-1.02); POTASSIUM 4.5 mmol/L (3.5-5.1); SGOT/AST 23 IU/L (3-35); SGPT/ALT 28 U/L (12-78); SODIUM 135 mmol/L (136-145); TOTAL PROTEIN 5.7 gm/dL (6.4-8.2)
[2018-12-29 07:46] LABS: MICROCYTOSIS SLIGHT; PLATELET SUFFICIENCY NORMAL (NORMAL); POLYCHROMASIA SLIGHT; SCHISTOCYTES FEW; TARGET CELLS FEW; TOTAL CELLS COUNTED 100 #CELLS
[2018-12-29 07:47] LABS: TOXIC GRANULATION SLIGHT
[2018-12-29 08:00] VITALS: BP 121/66
[2018-12-29 12:00] VITALS: BP 98/60
[2018-12-29 15:42] VITALS: BP 109/31
[2018-12-29 20:00] VITALS: BP 118/66
[2018-12-30] VITALS: BP 134/67
[2018-12-30 08:00] VITALS: BP 118/61
[2018-12-30 12:00] VITALS: BP 138/69
[2018-12-30 16:00] VITALS: BP 125/60
[2018-12-30 20:00] VITALS: BP 107/58
[2018-12-31] VITALS: BP 141/81
[2018-12-31 08:00] VITALS: BP 136/73
[2018-12-31 12:00] VITALS: BP 120/53
[2018-12-31 16:00] VITALS: BP 126/87
[2018-12-31 20:00] VITALS: BP 128/69
[2019-01-01] VITALS: BP 154/88
[2019-01-01 06:47] LABS: BUN 20 mg/dl (7-24); CHLORIDE 109 mmol/L (98-107); CREATININE 0.62 mg/dL (0.55-1.02); POTASSIUM 4.2 mmol/L (3.5-5.1); SODIUM 143 mmol/L (136-145)
[2019-01-01 08:00] VITALS: BP 135/74
[2019-01-01 12:00] VITALS: BP 129/73
[2019-01-01 16:00] VITALS: BP 143/76
[2019-01-01 20:00] VITALS: BP 139/72
[2019-01-02] VITALS: BP 141/77
[2019-01-02 08:00] VITALS: BP 134/64
[2019-01-02 12:00] VITALS: BP 126/55; BP 155/67
[2019-01-02] MEDS ORDERED: PHARMASSURE FO0.4 MG PO (13:56)
== END 2019-01-02 15:32 | disposition other institution (70) | DRG 871 ==
LOC: ED 02:06 → 4E 03:52 → EDHOLD 03:52 → 4E 04:12
PROVIDERS: Internal Medicine; Student in an Organized Health Care Education/Training Program; ADMIT Internal Medicine
PROC: 02HV33Z Insertion of Infusion Device into Superior Vena Cava, Percutaneous Approach (ICD-10-PCS; principal; 2018-12-26)
DX: A41.9 Sepsis, unspecified organism (principal); E43 Unspecified severe protein-calorie malnutrition; J15.6 Pneumonia due to other Gram-negative bacteria; J96.21 Acute and chronic respiratory failure with hypoxia; N18.4 Chronic kidney disease, stage 4 (severe); J44.0 Chronic obstructive pulmonary disease with (acute) lower respiratory infection; I50.32 Chronic diastolic (congestive) heart failure; I13.0 Hypertensive heart and chronic kidney disease with heart failure and stage 1 through stage 4 chronic kidney disease, or unspecified chronic kidney disease; J98.11 Atelectasis; T81.40XA Infection following a procedure, unspecified, initial encounter; R26.2 Difficulty in walking, not elsewhere classified; E78.5 Hyperlipidemia, unspecified; E86.0 Dehydration; K31.89 Other diseases of stomach and duodenum; K59.00 Constipation, unspecified; G47.00 Insomnia, unspecified; I48.2 Chronic atrial fibrillation; E83.41 Hypermagnesemia; D64.9 Anemia, unspecified; Z66 Do not resuscitate; Z51.5 Encounter for palliative care; K21.9 Gastro-esophageal reflux disease without esophagitis; D72.810 Lymphocytopenia; R73.9 Hyperglycemia, unspecified; I25.10 Atherosclerotic heart disease of native coronary artery without angina pectoris; M81.0 Age-related osteoporosis without current pathological fracture; Y83.3 Surgical operation with formation of external stoma as the cause of abnormal reaction of the patient, or of later complication, without mention of misadventure at the time of the procedure; F32.9 Major depressive disorder, single episode, unspecified; Z99.81 Dependence on supplemental oxygen; Z93.0 Tracheostomy status; Z88.5 Allergy status to narcotic agent; Z91.81 History of falling; Y92.89 Other specified places as the place of occurrence of the external cause; I25.2 Old myocardial infarction; Z87.01 Personal history of pneumonia (recurrent); Z98.49 Cataract extraction status, unspecified eye; Z95.2 Presence of prosthetic heart valve; Z95.1 Presence of aortocoronary bypass graft; Z87.891 Personal history of nicotine dependence; Z83.79 Family history of other diseases of the digestive system; Z80.42 Family history of malignant neoplasm of prostate; Z22.322 Carrier or suspected carrier of Methicillin resistant Staphylococcus aureus; Z79.82 Long term (current) use of aspirin; Z93.1 Gastrostomy status; Z79.899 Other long term (current) drug therapy; Z68.23 Body mass index [BMI] 23.0-23.9, adult

== ENCOUNTER 2019-01-22 18:32 | Inpatient (IN) | payer OTHER, MEDICAID ==
[2019-01-22] VITALS (12 sets, daily range): BP systolic 112–145; BP diastolic 58–83
[~2019-01-22] VITALS: Ht 152.4 cm; Wt 53.1 kg
--- NOTE | ~2019-01-22 | CON ---
[place], [place] REPORT OF CONSULTATION NAME: JEN GAN UNIT #: [id number] ROOM: 409 DOCTOR: SHERRILL HUTTONDEXCHURCHVILLEKAYKAY BIRTHDATE: [birth year] DOS: 01/26/2019 HISTORY OF PRESENT ILLNESS: A 73-year-old patient who has presented with multiple medical problems, among which has profound anemia of H and H was 6.9 and 24, microcytic indices. Comprehensive metabolic panel: GFR greater than 60. Liver function tests normal. INR of 1.0. Status post multiple transfusions. Chest x-ray, decreased volume atelectasis. CT scan of the abdomen and pelvis, no definitive intra-abdominal pathology, simple fluid density cyst in the spleen, aneurysmal dilation of distal aorta, abdominal change, bedridden. CBC differential, H and H improved to 8 and 26. White blood cell of 15. CBC differential again reassessed after transfusion. Latest H and H today is 7.9 and 26, which is similar. No acute losses has been identified. PAST MEDICAL HISTORY: Respiratory insufficiency, atrial fibrillation, hiatal hernia, DVT, protein-calorie malnutrition. Bedridden. alf patient. Communication limited. PAST SURGICAL HISTORY: Aortic valve prosthesis, inferior vena cava filter, PEG tube, gastrostomy. SOCIAL HISTORY: Nonsmoker, nonalcohol consumer. FAMILY HISTORY: Noncontributory. ALLERGIES: PENICILLIN, CODEINE, LATEX. MEDICATIONS: List has been reviewed, which is including Eliquis and aspirin, which could be leading to a mucosal blood loss and anemia. REVIEW OF SYSTEMS: Cannot be obtained much from her, cognitive, communication, instructions. PHYSICAL EXAMINATION: VITAL SIGNS: Frail patient. HEENT: Head normocephalic, nontraumatic. Mouth and buccal mucosa benign. NECK: Supple, no thyromegaly, no cervical lymphadenopathy. CHEST: Symmetric anatomy, equal expansion. No wheeze, no rhonchi. HEART: Normal sinus rhythm. No gallop. No murmur. ABDOMEN: Soft. No hepato-organomegaly. Bowel sounds present. PEG tube placed. EXTREMITIES: There is no cyanosis. No pedal edema. NEUROLOGIC: Alert and slow orientation. Labs reviewed. Records reviewed. IMPRESSION: Anemia, microcytic and mixed, protein-calorie malnutrition, status post PEG tube feeder. Other adjunctive diagnoses as diagnosed and outlined in the paragraph of past medical, surgical history, understanding, the patient has been on Eliquis and aspirin. [place], [place] REPORT OF CONSULTATION NAME: JEN GAN UNIT #: [id number] ROOM: 409 DOCTOR: SHERRILL HUTTON,MANUELA BIRTHDATE: [birth year] PLAN AND DISCUSSION: We are going to proceed with a colonoscopic evaluation. CT scan of the abdomen and pelvis has been recognized. Abdominal aortic aneurysm size clinically in no acute concern. We will proceed with colonoscopy. MANUELA MCCARTNEY MD CM:CONSTR:REPORT OF CONSULTATION 1817 01/29/19 0649 CRISTINA GREEN MIS.R
--- NOTE | ~2019-01-22 | O ---
[place], [place] OPERATIVE NOTE NAME: JEN GAN UNIT #: [id number] ROOM: 409 DOCTOR: MANUELA MCCARTNEY MD BIRTHDATE: [birth year] DOS: 01/26/2019 COLONOSCOPY REPORT INDICATIONS: The patient is a 73-year-old patient who has presented with chief complaint of anemia, status post transfusion, undergoing this investigation. PROCEDURE: Today's procedure part of investigation is colonoscopy. PREMEDICATION: Propofol. SCOPE: Olympus forward-viewing colonoscope 10L video. REPORT: After putting the patient in left lateral position and application of lubricant to rectal pouch and digital examination, scope was introduced. Thereafter, under direct visualization, advanced through the length of colon without difficulty. Scattered diverticulosis was identified throughout length of colon. Scope was negotiated to mid-ascending colon liquid stool hinders detailed visualization. However, I did not notice any ischemic evidence in the colon, no acute source of blood loss up to the point where this was evaluated. Scope was gradually withdrawn after multiple attempts to evacuate the liquid stool was undertaken. The patient extubated, tolerated the procedure well. IMPRESSION: Rare diverticulosis, retained liquid stool. I have discussed with the eldest daughter at the bedside and I have offered that we can organize a completion barium study and this can be always done in an outpatient setting and I am sensitive to the issue that there is redundancy of transverse colon extending all the way into the pelvis and this could have occult pathology hidden in it, particularly in view of the fact that the patient has liquid retained stool. Should the daughter decide to proceed with the study, I will organize a barium study of the colon as in or outpatient as it may be As I understand, the services are not available and the hospital radiologist was not available. [place], [place] OPERATIVE NOTE NAME: JEN GAN UNIT #: [id number] ROOM: 409 DOCTOR: MANUELA MCCARTNEY MD BIRTHDATE: [birth year] MANUELA MCCARTNYE MD CM:OPRECORD:OPERATIVE NOTE 1817 1509 MANUELA MCCARTNEY MD 01/29/19 0649 CRISTINA GREEN MIS.LLR
--- NOTE | ~2019-01-22 | EKG ---
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
[~2019-01-22 18:32] MED LIST changes: +ASPIRIN ADULT L81 M2 PEG; +CALCIUM 500 +1 EAC1 PEG; +ELIQUIS5 M1 PEG; +Ipratropium Brom3 ML INH; +LASIX40 MG PEG; +LIPITOR20 MG PEG; +MERREM IV1 GM IV; +MIRALAX17 GM PEG; +PEPCID20 MG PEG; +PHARMASSURE FO0.4 MG PO; +TRAZODONE50 MG PEG; +ZYVOX600 MG PEG
--- NOTE | 2019-01-22 20:06 | NUR ---
PATIENTS BROTHERS NUMBER [phone] KYLE GAN
--- NOTE | 2019-01-22 20:08 | NUR ---
REPORT GIVEN TO NURSE FAYE AT [facility] ABOUT PATIENT BEING ADMITTED TO THE FLOOR HERE.
--- NOTE | 2019-01-22 20:10 | NUR ---
PATIENTS DAUGHTER STATES TO ME THAT PATIENT IS ON CONT TUBE FEED AT [facility] AND WONDERING WHY THEY DID NOT SEND TUBE FEED WITH PATIENT TO THIS FACILITY. PATIENTS NURSE STATES TO THIS RN THAT EMS COULDNT TAKE TUBE FEED. THIS RN WILL CALL RESIDENT CALL CENTER OPERATOR.
--- NOTE | 2019-01-22 20:17 | NUR ---
THIS RN TALKED WITH LAB, LAB STATES 1 UNIT [facility] WILL BE READY IN ABOUT 15 MINUTES AND THEY WILL CALL WHEN READY.
[2019-01-23] VITALS (7 sets, daily range): BP systolic 124–148; BP diastolic 71–78
[2019-01-23 02:55] LABS: BASO # 0.1 10*3/uL (0.0-0.1); BASO % 0.4 % (0.0-1.0); EOS # 0.3 10*3/uL (0.0-0.4); EOS % 2.1 % (1.0-4.0); HEMATOCRIT 27.7 % (37.0-47.0); HEMOGLOBIN 8.6 g/dl (12.0-16.0); LYMPH # 2.3 10*3/uL (1.3-4.4); MEAN CELL VOLUME 82.7 fl (81.0-99.0); MEAN CORPUSCULAR HGB 25.7 pg (27.0-31.0); MEAN PLATELET VOLUME 8.8 fl (9.6-12.3); MONO # 1.5 10*3/uL (0.1-1.0); MONO % 9.8 % (3.0-9.0); NEUT # 10.9 10*3/uL (2.3-7.9); NEUT % 72.2 % (47.0-73.0); PLATELET COUNT AUTOMATED 389 10*3/uL (130-400); RED BLOOD COUNT 3.35 10*6/uL (4.10-5.10); RED CELL DISTRI WIDTH 16.5 % (0-14.5); WHITE BLOOD COUNT 15.1 10*3/uL (4.8-10.8)
[2019-01-23] MEDS ORDERED: BIOTENE ORALBAL42 G1 MM (03:49)
[2019-01-23] MEDS ORDERED: ASPIRIN81 M1 PEG (03:51)
--- NOTE | 2019-01-23 04:29 | NUR ---
CALLED DR. WOLFE AWARE MEDICATIONS ARE UPDATED.
--- NOTE | 2019-01-23 06:00 | NUR ---
PT RESTING IN BED. TEDS AND SCD'S APPLIED. CALL LIGHT IN REACH. BED ALARM ON.
--- NOTE | 2019-01-23 06:22 | NUR ---
CALLED DR. MCCARTNEY LEFT MESSAGE ON HIS PHONE TO CALL FOR NEW CONSULT.
--- NOTE | 2019-01-23 06:27 | NUR ---
DR. MCCARTNEY CALLED ORDERS TAKEN AND REVIEWED.
[2019-01-23 06:44] LABS: HEMATOCRIT 26.9 % (37.0-47.0); HEMOGLOBIN 8.3 g/dl (12.0-16.0); MEAN CORPUSCULAR HGB 25.3 pg (27.0-31.0); MEAN CORPUSCULAR HGB CONC 30.9 g/dl (33.0-37.0); MEAN PLATELET VOLUME 8.9 fl (9.6-12.3); PLATELET COUNT AUTOMATED 375 10*3/uL (130-400); RED BLOOD COUNT 3.28 10*6/uL (4.10-5.10); RED CELL DISTRI WIDTH 16.6 % (0-14.5); WHITE BLOOD COUNT 15.5 10*3/uL (4.8-10.8)
[2019-01-23 07:15] LABS: CHLORIDE 106 mmol/L (98-107); POTASSIUM 3.9 mmol/L (3.5-5.1); SODIUM 143 mmol/L (136-145)
[2019-01-23 07:23] LABS: BASOPHILS 1 % (0-1); PLATELET SUFFICIENCY NORMAL (NORMAL); POLYCHROMASIA SLIGHT; SCHISTOCYTES FEW; TARGET CELLS FEW; TOTAL CELLS COUNTED 100 #CELLS; TOXIC GRANULATION SLIGHT; VACUOLATION OF NEUTROPHILS SLIGHT
[2019-01-23 07:33] LABS: BUN 40 mg/dl (7-24); CREATININE 0.75 mg/dL (0.55-1.02)
--- NOTE | 2019-01-23 07:37 | NUR ---
TRACH DRESSING CHANGED. CLEANED. INNER CAN. CLEAR. PT SUCTIONED FOR SMALL THIM CLEARISH/CREAM SECRETIONS
--- NOTE | 2019-01-23 07:50 | NUR ---
PHYSICAL THERAPY Nursing screen received. Physical therapy order received. Thank you. Marlene Calderón,PT,DPT.
--- NOTE | 2019-01-23 09:00 | NUR ---
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
--- NOTE | 2019-01-23 14:31 | NUR ---
Occupational therapy eval complete on 4 with full eval to follow. Precautions include fall risk, bed alarm, IV UE, peg tube, non verbal, trach, impaired cognition and memory, lethargy and high complexity level 03745 via chart review, testing, and eval. OT not indicated at this time because patient appears to be at baseline and reports she is hardly getting out of bed at the LTC facility that patient was admitted from. Reccommendations include Dallin lift for transfers, nursing include BUE ROM in daily care routine, and LTC. Thank you for this referral. Bennie Painting OTR/L
--- NOTE | 2019-01-23 16:17 | NUR ---
PHYSICAL THERAPY Physical therapy evaluation complete. Moderate evaluation complexity: 83908. Patient presents to be at baseline per stating that patient rarely gets out of bed and does not walk. Patient agrees that she does not get out of bed much. Patient not appropriate for skilled PT services at this time. Recommend detention care at discharge. During stay, recommend nursing to use Dallin lift for transfers out of bed, and complete ROM of bilateral LE daily. Thank you. Marlene Calderón, PT,DPT.
--- NOTE | 2019-01-23 16:31 | NUR ---
Nursing screen received and Occupational Therapy referral received. Thank you. Krista Painting OTR/L
--- NOTE | 2019-01-23 19:23 | NUR ---
IV started RFA with #22 protective cath after 1 attempts. Site prepped with Chloroprep. Sterile dressing applied. Patient tolerated procedure well. DEYANIRA MEYERS
[2019-01-24] VITALS: BP 152/79
--- NOTE | 2019-01-24 | NUR ---
PT PEG FEEDING STOPPED AT THIS TIME. PT NPO FOR COLO TODAY WITH DR. MCCARTNEY.
--- NOTE | 2019-01-24 00:11 | NUR ---
CALLED [facility] CONCERNING PT CODE STATUS. OF 01/02/19 PT IS A FULL CODE.
--- NOTE | 2019-01-24 03:54 | NUR ---
24 HR chart check completed.
[2019-01-24 06:15] LABS: BASO # 0.1 10*3/uL (0.0-0.1); BASO % 0.4 % (0.0-1.0); EOS # 0.3 10*3/uL (0.0-0.4); EOS % 2.3 % (1.0-4.0); HEMATOCRIT 27.7 % (37.0-47.0); HEMOGLOBIN 8.2 g/dl (12.0-16.0); MEAN CELL VOLUME 84.7 fl (81.0-99.0); MEAN CORPUSCULAR HGB 25.1 pg (27.0-31.0); MEAN CORPUSCULAR HGB CONC 29.6 g/dl (33.0-37.0); MEAN PLATELET VOLUME 9.8 fl (9.6-12.3); MONO # 1.5 10*3/uL (0.1-1.0); MONO % 10.5 % (3.0-9.0); NEUT # 10.3 10*3/uL (2.3-7.9); NEUT % 72.4 % (47.0-73.0); PLATELET COUNT AUTOMATED 392 10*3/uL (130-400); RED BLOOD COUNT 3.27 10*6/uL (4.10-5.10); RED CELL DISTRI WIDTH 17.4 % (0-14.5); WHITE BLOOD COUNT 14.3 10*3/uL (4.8-10.8)
[2019-01-24 06:45] LABS: BUN 42 mg/dl (7-24); CHLORIDE 111 mmol/L (98-107); CREATININE 0.69 mg/dL (0.55-1.02); POTASSIUM 4.1 mmol/L (3.5-5.1); SODIUM 148 mmol/L (136-145)
[2019-01-24 08:00] VITALS: BP 123/78
--- NOTE | 2019-01-24 08:51 | NUR ---
Patient comes in from [facility]. Discussed patient returning to [facility] with Trisha. She stated the patient has not converted to intermediate care and the daughter is consistently unsatisfied with patient care, she has moved her to several different facilities. Trisha stating patients Medicare snf days are all used so regardless of which facility patient goes to upon discharge, including [facility] she will need to be placed under her [place] medicaid that requires a Level of care through [facility].
--- NOTE | 2019-01-24 10:00 | NUR ---
PATIENTS FAMILY IS VERY UPSET THAT BOWEL PREP WAS NOT DONE. I SPOKE WITH FAMILY AND TOLD THEM WHEN I FIND OUT WHAT DR. MCCARTNEY WANTS TO DO I WILL LET THEM KNOW.
--- NOTE | 2019-01-24 11:30 | NUR ---
SPOKE WITH NURSE FROM SURGERY SHE SAID THAT DR MCCARTNEY WILL DO PROCEDURE ON TUESDAY. PATIENT IS TO BE ON CLEAR LIQUIDS ONLY THROUGH PEG TUBE. NO TUBE FEED AT THIS TIME. DISCUSSED THIS WITH FAMILY THEY ARE AGREEABLE AND AFTER TALKING TO THEM THEY ARE OKAY WITH PLAN OF CARE.
[2019-01-24 12:00] VITALS: BP 132/80
--- NOTE | 2019-01-24 15:24 | NUR ---
DR MCCARTNEY CALLED TO CLARIFY ORDERS FOR COLONOSCOPY TUESDAY. NEW ORDERS RECEVIED. PREP TO START TOMORROW 01/25. HOLD TUBE FEED FOR NOW. SPOKE WITH PHYSICIAN TO SEE IF THEY WANTED FREE WATER FLUSHES. RECEIVED NEW ORDERS. PATIENT REPOSITIONED FOR COMFORT AND SUCTIONED.
[2019-01-24 16:00] VITALS: BP 138/71
--- NOTE | 2019-01-24 16:00 | NUR ---
Patient resting quietly with no c/o discomfort. Respirations easy and regular. Vital signs stable. No overt distress. WILBERT JOE
--- NOTE | 2019-01-24 20:00 | NUR ---
ASSUMED CARE OF PATIENT. PATIENT RESTING IN BED AT THIS TIME. NO S/S OF DISTRESS. PATIENT DENIES A NEED FOR SUCTIONING AT THIS TIME. 6LO2 VIA TRACH MASK BEING ADMINISTERED. CALL LIGHT PLACED WITHIN REACH.
[2019-01-25] VITALS: BP 144/75
[2019-01-25 05:57] LABS: BASO # 0.1 10*3/uL (0.0-0.1); BASO % 0.4 % (0.0-1.0); EOS # 0.2 10*3/uL (0.0-0.4); EOS % 1.5 % (1.0-4.0); HEMATOCRIT 26.3 % (37.0-47.0); HEMOGLOBIN 7.9 g/dl (12.0-16.0); LYMPH # 2.1 10*3/uL (1.3-4.4); LYMPH % 15.2 % (27.0-41.0); MEAN CELL VOLUME 84.6 fl (81.0-99.0); MEAN CORPUSCULAR HGB 25.4 pg (27.0-31.0); MONO # 1.1 10*3/uL (0.1-1.0); NEUT # 10.5 10*3/uL (2.3-7.9); NEUT % 74.4 % (47.0-73.0); PLATELET COUNT AUTOMATED 384 10*3/uL (130-400); RED BLOOD COUNT 3.11 10*6/uL (4.10-5.10); RED CELL DISTRI WIDTH 18.5 % (0-14.5); WHITE BLOOD COUNT 14.1 10*3/uL (4.8-10.8)
[2019-01-25 06:18] LABS: BUN 39 mg/dl (7-24); CHLORIDE 111 mmol/L (98-107); CREATININE 0.76 mg/dL (0.55-1.02); POTASSIUM 3.9 mmol/L (3.5-5.1); SODIUM 147 mmol/L (136-145)
--- NOTE | 2019-01-25 07:45 | NUR ---
Patient resting quietly with no c/o discomfort. Respirations easy and regular. Vital signs stable. No overt distress. SUCTIONED FOR MOD AMOUNT OF YELLOW/WHITE SPUTUM. MED STUDENT IN ROOM AND NOTIFIED OF PENDING SPUTUM, INCREASED SECRETIONS VIA TRACH AND SCRATCH TO BUTTOCK INFLICTED BY PT THAT IS ACUTELY BLEEDING. WILBERT JOE
[2019-01-25 08:00] VITALS: BP 122/82
[2019-01-25 11:57] LABS: BILIRUBIN NEGATIVE (NEGATIVE); BLOOD NEGATIVE (NEGATIVE); CLARITY SL CLOUDY (CLEAR); COLOR YELLOW (YELLOW); GLUCOSE NEGATIVE (NEGATIVE); KETONE NEGATIVE (NEGATIVE); LEUKO ESTERASE NEGATIVE (NEGATIVE); NITRITE NEGATIVE (NEGATIVE); UROBILINOGEN 0.2 E.U./dl (0.2-1.0)
[2019-01-25 12:05] LABS: BACTERIA TRACE; EPITHELIAL CELLS 0-2; MUCOUS 1+; RBC 0-2 rbc/hpf (0-2)
--- NOTE | 2019-01-25 13:00 | NUR ---
DAUGHTER CHEMO AT BEDSIDE AND UPDATED ON PLAN OF CARE, ALL QUESTIONS ANSWERED AND AM SURGEY TIME PROVIDED. CHEMO FEELS SATISFIED AT THIS TIME AND WILL BE REFERRED TO DR CARVAJAL FOR FURTHER DISCUSSION PER HIS REQUEST.
--- NOTE | 2019-01-25 13:15 | NUR ---
DR CARVAJAL IN TO SPEAK WITH DAUGHTER CHEMO. PT'S CONDITION, PLAN OF CARE AND CODE STATUS DISCUSSED IN DETAIL WITH PAOLA MCLAIN AND ANOTHER FAMILY MEMBER ON THE PHONE. HE WILL F/U IN THE FUTURE.
--- NOTE | 2019-01-25 15:12 | NUR ---
24 HR chart check completed.
[2019-01-25 16:00] VITALS: BP 143/69
--- NOTE | 2019-01-25 21:37 | NUR ---
24 HR chart check completed.
[2019-01-26] VITALS: BP 145/77
--- NOTE | 2019-01-26 06:27 | NUR ---
JEN GAN [id number] Please refer to the physician's history and physical for past medical history, comorbid conditions, and allergies. Diagnosis: GI BLEED , ANEMIA Lonnie Score: 15,AT RISK WOUND DESCRIPTIONS: Wound Number: 1 Location of the wound: left lower back ( left buttocks ) Thickness: Partial Size: 1.0cm x 0.5cm x 0.1cm Tunneling: none Undermining: none Sinus Tract: none Presence of Exudate: Serous Amount: Light Color: Red Odor: None Periwound Skin Appearance: Normal Wound edges: approximated Pain (associated with wound): none at time of assessment How does patient state this happened? pt unable to state how this happened nurse caring for patient stated she scratched herself Surface the patient is resting on: Isoflex SKIN PREVENTION RECOMMENDATION: 1. Pressure redistribution support surface as appropriate 2. Elevate heels 3. Remove boots/TEDS every shift and reapply 4. Head of bed 30 degrees as tolerated 5. Assess nutrition and hydration 6. Manage moisture 7. Avoid the use of containment devices while in bed 8. Use absorptive products on surfaces limit layers of linens on bed 9. Turn and reposition every 1-2 hours in bed and every 1 hour in chair as tolerated 10. Weight shifts every 15 minutes while up in chair 11. Offloading with pillows or device to keep heels elevated off bed 12. Monitor skin at least every shift 13. Inspect under medical devices twice a day WOUND TREATMENT RECOMMENDATIONS: Clarify skin tear guidelines: Cleanse left lower back ( left buttocks ) with nss and apply sureprep around the wound hydrogel to wound bed and cover with optifoam gentle. Heel raiser pro boots while in bed to bilateral feet. Wheelchair cushion when oob.
[2019-01-26 06:57] LABS: BASO # 0.1 10*3/uL (0.0-0.1); BASO % 0.5 % (0.0-1.0); EOS # 0.1 10*3/uL (0.0-0.4); EOS % 0.9 % (1.0-4.0); HEMATOCRIT 26.6 % (37.0-47.0); HEMOGLOBIN 7.9 g/dl (12.0-16.0); LYMPH # 2.8 10*3/uL (1.3-4.4); MEAN CELL VOLUME 85.3 fl (81.0-99.0); MEAN CORPUSCULAR HGB 25.3 pg (27.0-31.0); MEAN CORPUSCULAR HGB CONC 29.7 g/dl (33.0-37.0); MEAN PLATELET VOLUME 9.6 fl (9.6-12.3); MONO # 1.3 10*3/uL (0.1-1.0); MONO % 8.9 % (3.0-9.0); NEUT # 10.3 10*3/uL (2.3-7.9); NEUT % 70.4 % (47.0-73.0); PLATELET COUNT AUTOMATED 406 10*3/uL (130-400); RED BLOOD COUNT 3.12 10*6/uL (4.10-5.10); RED CELL DISTRI WIDTH 18.8 % (0-14.5); WHITE BLOOD COUNT 14.7 10*3/uL (4.8-10.8)
[2019-01-26 07:29] LABS: ALBUMIN 3.2 gm/dl (3.1-4.5); BUN 37 mg/dl (7-24); CHLORIDE 110 mmol/L (98-107); POTASSIUM 3.6 mmol/L (3.5-5.1); SODIUM 144 mmol/L (136-145)
[2019-01-26 07:34] LABS: ALKALINE PHOSPHATASE 83 U/L (45-117); CREATININE 0.74 mg/dL (0.55-1.02); SGOT/AST 23 IU/L (3-35); SGPT/ALT 26 U/L (12-78); TOTAL PROTEIN 7.5 gm/dL (6.4-8.2)
--- NOTE | 2019-01-26 07:57 | NUR ---
Dr. Ontiveros notified of wound care recommendations.
[2019-01-26 08:00] VITALS: BP 130/62
--- NOTE | 2019-01-26 08:49 | NUR ---
24 HR CHART CHECK COMPLETE
--- NOTE | 2019-01-26 09:06 | NUR ---
Patient requires a level of care prior to being discharged to return to [facility] or any other facility. Completed form and faxed to [facility] aging. Waiting on review.
--- NOTE | 2019-01-26 11:30 | NUR ---
PTS DAUGHTER INFORMED THAT DR MCCARTNEY IS RUNNING LATE BUT WIIL BE HERE BY 1500 OR SO. I EXPLAINED THAT I WILL BE IN CLOSE SOMMUNICATION WITH SURGERY DEPARTMENT AND KEEP THEM INFORMED.
--- NOTE | 2019-01-26 12:37 | NUR ---
Patient level of care through [facility] aging completed and approved. Patient ok for alf placement through [place] medicaid, no precert required. At this time, patient will return to [facility].
--- NOTE | 2019-01-26 13:34 | NUR ---
Patient updated clinicals faxed to [facility] for review. Patient will return under her [place] medicaid and doesn't need precert. Patient can go when medically stable for discharge.
--- NOTE | 2019-01-26 13:44 | NUR ---
Nursing screen received on 01/26/19 and Occupational therapy eval completed on 01/23/19. No further OT needs indicated at this time. Thank you. Bennie Painting OTR/L
--- NOTE | 2019-01-26 14:15 | NUR ---
SPOKE TO PTS DAUGHTER WHO IS HER POA. INFORMED THAT DR MCCARTNEY IS ON HIS WAY AND PT WILL BE TAKEN DOWN FOR SURGERY SOON. THEY STATED THEY ARE ALREADY IN THE BUILDING AND WILL BE UP TO HER ROOM.
--- NOTE | 2019-01-26 15:04 | NUR ---
PHYSICAL THERAPY Nursing screen received. Physical therapy evaluation complete on 01/23/19. No further PT needs indicated at this time. Thank you. Marlene Calderón,PT,DPT.
[2019-01-26 17:27] VITALS: BP 107/57
[2019-01-26 17:42] VITALS: BP 112/62
[2019-01-26 17:57] VITALS: BP 115/53
--- NOTE | 2019-01-26 19:56 | NUR ---
Pt suctioned for a scant amt of clear secretions. Trach site cleaned. Breathign tx given and water bottle refilled. Pt it on 28% JANES with a SpO2 of 100%.
[2019-01-26 20:00] VITALS: BP 139/61
[2019-01-27] VITALS (11 sets, daily range): BP systolic 108–125; BP diastolic 49–65
--- NOTE | 2019-01-27 00:30 | NUR ---
Pt suctioned for a small amt of creamy secretions. Trach dressing saturated and changed. SpO2 is 100% on a 28% JANES.
[2019-01-27 06:04] LABS: BASO % 0.4 % (0.0-1.0); EOS # 0.2 10*3/uL (0.0-0.4); EOS % 2.2 % (1.0-4.0); HEMATOCRIT 23.7 % (37.0-47.0); HEMOGLOBIN 7.1 g/dl (12.0-16.0); LYMPH # 2.1 10*3/uL (1.3-4.4); LYMPH % 20.5 % (27.0-41.0); MEAN CELL VOLUME 84.3 fl (81.0-99.0); MEAN CORPUSCULAR HGB 25.3 pg (27.0-31.0); MEAN PLATELET VOLUME 9.7 fl (9.6-12.3); MONO % 9.9 % (3.0-9.0); NEUT # 6.8 10*3/uL (2.3-7.9); NEUT % 66.7 % (47.0-73.0); PLATELET COUNT AUTOMATED 341 10*3/uL (130-400); RED BLOOD COUNT 2.81 10*6/uL (4.10-5.10); RED CELL DISTRI WIDTH 18.8 % (0-14.5); WHITE BLOOD COUNT 10.3 10*3/uL (4.8-10.8)
[2019-01-27 06:19] LABS: BUN 28 mg/dl (7-24); CHLORIDE 110 mmol/L (98-107); CREATININE 0.72 mg/dL (0.55-1.02); POTASSIUM 3.6 mmol/L (3.5-5.1); SODIUM 144 mmol/L (136-145)
--- NOTE | 2019-01-27 08:00 | NUR ---
TRACH CARE GIVEN. CLEANED AREA AROUND TRACH. CLEANED INNER CANNULA. SPO2 96%. TRACH INTACT. SUCTIONED FOR LARGE AMT OF SECRETIONS WHITE. PT TOLERATED WELL.
--- NOTE | 2019-01-27 11:30 | NUR ---
Informed consent obtained from family for Blood transfussion by Dr. CARVAJAL. Patient identified by arm band. Vital signs recorded. Blood unit number verified by 2 R.N.'s. I.V. site satisfactory. Unit 1 started at a KVO rate with Normal Saline. DEYANIRA MEYERS
--- NOTE | 2019-01-27 12:30 | NUR ---
IV ACCESS REGAINED TO RAN BY SAMI Guillaume RN. PT TOLERATERATED WELL.BLOOD INFUSING AT 100 ML/HR. WILL CONTINUE TO MONITOR. CALL LIGHT IN REACH. ALARM INTACT.
--- NOTE | 2019-01-27 16:30 | NUR ---
CHECKED PT. DOES NOT NEED SUCTIONED AT THIS TIME. DRESSING CLEAN. STUDENT NURSE STATING SAT IS 100%. NO WATER IN DRAINAGE BAG FROM O2. WATER LEVEL GOOD FOR O2 HUMIDIFICATION.
--- NOTE | 2019-01-27 19:10 | NUR ---
ARRIVED ON SHIFT,INTRODUCED TO PATIENT, SHE IS NON-VERBAL BEDSIDE REPORT RECEIVED, WHITEBOARD UPDATED, NO APPARENT NEEDS AT THIS TIME.
--- NOTE | 2019-01-27 20:49 | NUR ---
24 HR chart check completed.
[2019-01-28] VITALS: BP 144/75
--- NOTE | 2019-01-28 04:51 | NUR ---
Patient sleeping. Respirations relaxed and easy. Siderails up 2. [place] on. SUGAR CUETO
[2019-01-28 06:32] LABS: BASO # 0.1 10*3/uL (0.0-0.1); BASO % 0.4 % (0.0-1.0); EOS # 0.4 10*3/uL (0.0-0.4); EOS % 2.9 % (1.0-4.0); HEMATOCRIT 28.2 % (37.0-47.0); HEMOGLOBIN 8.6 g/dl (12.0-16.0); LYMPH # 1.8 10*3/uL (1.3-4.4); LYMPH % 13.9 % (27.0-41.0); MEAN CORPUSCULAR HGB 26.2 pg (27.0-31.0); MEAN CORPUSCULAR HGB CONC 30.5 g/dl (33.0-37.0); MEAN PLATELET VOLUME 10.2 fl (9.6-12.3); MONO # 1.2 10*3/uL (0.1-1.0); MONO % 9.4 % (3.0-9.0); NEUT # 9.5 10*3/uL (2.3-7.9); PLATELET COUNT AUTOMATED 305 10*3/uL (130-400); RED BLOOD COUNT 3.28 10*6/uL (4.10-5.10); RED CELL DISTRI WIDTH 18.5 % (0-14.5)
[2019-01-28 06:34] LABS: BUN 24 mg/dl (7-24); CHLORIDE 113 mmol/L (98-107); CREATININE 0.67 mg/dL (0.55-1.02); POTASSIUM 3.8 mmol/L (3.5-5.1); SODIUM 145 mmol/L (136-145)
[2019-01-28 08:00] VITALS: BP 111/58
[2019-01-28 12:00] VITALS: BP 138/71
[2019-01-28 16:00] VITALS: BP 128/64
--- NOTE | 2019-01-28 17:56 | NUR ---
TYLENOL 650 MG GIVEN FOR C/O PAIN VIA PEG TUBE.PERICARE AND COMPLETE LINEN CHANGE PROVIDED AT THIS TIME. INCONTINENT FOR URINE. MOUTHCARE PROVIDED. DRESSING D&I TO COCCYX. PT TOLERATED WELL.STEPMOTHER VISITING AT BEDSIDE.
--- NOTE | 2019-01-28 19:30 | NUR ---
PT RESTING IN BED AT THIS TIME WITH NO OBVIOUS SIGNS/SYMPTOMS OF PAIN OR DISCOMFORT. RESPIRATIONS EASY AND NONLABORED. FAMILY IS AT THE BEDSIDE. INTIIAL SHIFT ASSESSMENT COMPLETED. PT DENIES NEED TO BE SUCTIONED AT THIS TIME. PEG TUBE PLACEMENT ASSESSED. 2CAL HN RUNNING AT 35cc/hr. WILL CONTINUE TO MONITOR PT.
[2019-01-28 20:00] VITALS: BP 144/66
--- NOTE | 2019-01-28 22:30 | NUR ---
Pt suctioned for small amount of thick sputum.
[2019-01-29] VITALS: BP 151/72
--- NOTE | 2019-01-29 06:09 | NUR ---
Upon discharge recommend patient to follow up for wound care in outpatient setting continue current wound care orders at discharging facility.
[2019-01-29 06:58] LABS: BASO # 0.1 10*3/uL (0.0-0.1); BASO % 0.5 % (0.0-1.0); EOS # 0.5 10*3/uL (0.0-0.4); EOS % 4.9 % (1.0-4.0); HEMATOCRIT 30.4 % (37.0-47.0); HEMOGLOBIN 9.3 g/dl (12.0-16.0); LYMPH # 2.1 10*3/uL (1.3-4.4); LYMPH % 19.2 % (27.0-41.0); MEAN CELL VOLUME 85.9 fl (81.0-99.0); MEAN CORPUSCULAR HGB 26.3 pg (27.0-31.0); MEAN CORPUSCULAR HGB CONC 30.6 g/dl (33.0-37.0); MEAN PLATELET VOLUME 10.2 fl (9.6-12.3); MONO % 8.9 % (3.0-9.0); NEUT # 7.3 10*3/uL (2.3-7.9); PLATELET COUNT AUTOMATED 326 10*3/uL (130-400); RED BLOOD COUNT 3.54 10*6/uL (4.10-5.10); RED CELL DISTRI WIDTH 18.3 % (0-14.5); WHITE BLOOD COUNT 11.1 10*3/uL (4.8-10.8)
[2019-01-29 07:12] LABS: BUN 18 mg/dl (7-24); CHLORIDE 110 mmol/L (98-107); POTASSIUM 4.3 mmol/L (3.5-5.1); SODIUM 142 mmol/L (136-145)
[2019-01-29 08:00] VITALS: BP 160/70
--- NOTE | 2019-01-29 09:22 | NUR ---
[facility] today if medically stable for discharge.
--- NOTE | 2019-01-29 11:47 | NUR ---
CALLED FAMILY TO NOTIFY THEM THAT PATIETN IS GOING TO BE DISCHARGED AFTER TRACH SIZE IS SWITCHED. FAMILY WAS OKAY WITH DISCHARGE.
[2019-01-29] MEDS ORDERED: LEVAQUIN750 M1 PO (12:03)
--- NOTE | 2019-01-29 12:30 | NUR ---
TRACH WAS DOWNSIZED TO A #7 PORTEX PER MAGGIED KEMAN REQUEST. PULSE OX 94% TO 97% R/A , HEART RATE 105 AFTER CHANGE. AEROSOL TX GIVEN AFTER PROCEDURE.
--- NOTE | 2019-01-29 12:33 | NUR ---
Patient is discharged to [facility], transportation scheduled for 2PM with [facility]. NH, nursing and daughter all notified.
[2019-01-29] MEDS ORDERED: Bactroban Oint22 GM T (12:43)
--- NOTE | 2019-01-29 14:09 | NUR ---
.Discharge instructions reviewed with patient/family. Patient receptive and verbalizes understanding. Follow-up care arranged. Written instructions given to patient/family. USNITA BOTELLO
== END 2019-01-29 14:09 | DRG 871 ==
LOC: ED 18:32 → EDHOLD 19:30 → 4E 19:30
PROVIDERS: Family Medicine; Internal Medicine; Nurse Practitioner Family; Student in an Organized Health Care Education/Training Program; ADMIT Internal Medicine
PROC: 30233N1 Transfusion of Nonautologous Red Blood Cells into Peripheral Vein, Percutaneous Approach (ICD-10-PCS; principal; 2019-01-22)
PROC: 0DJD8ZZ Inspection of Lower Intestinal Tract, Via Natural or Artificial Opening Endoscopic (ICD-10-PCS; 2019-01-26)
PROC: 0B21XFZ Change Tracheostomy Device in Trachea, External Approach (ICD-10-PCS; 2019-01-29)
DX: A41.52 Sepsis due to Pseudomonas (principal); K57.93 Diverticulitis of intestine, part unspecified, without perforation or abscess with bleeding; E44.0 Moderate protein-calorie malnutrition; J96.11 Chronic respiratory failure with hypoxia; D62 Acute posthemorrhagic anemia; I38 Endocarditis, valve unspecified; J98.11 Atelectasis; Z68.22 Body mass index [BMI] 22.0-22.9, adult; E78.5 Hyperlipidemia, unspecified; I48.0 Paroxysmal atrial fibrillation; R73.9 Hyperglycemia, unspecified; K64.4 Residual hemorrhoidal skin tags; D72.821 Monocytosis (symptomatic); J44.9 Chronic obstructive pulmonary disease, unspecified; J84.10 Pulmonary fibrosis, unspecified; B96.5 Pseudomonas (aeruginosa) (mallei) (pseudomallei) as the cause of diseases classified elsewhere; D73.4 Cyst of spleen; I71.4 Abdominal aortic aneurysm, without rupture; I25.10 Atherosclerotic heart disease of native coronary artery without angina pectoris; F32.9 Major depressive disorder, single episode, unspecified; D72.810 Lymphocytopenia; D47.3 Essential (hemorrhagic) thrombocythemia; K21.9 Gastro-esophageal reflux disease without esophagitis; M81.0 Age-related osteoporosis without current pathological fracture; I10 Essential (primary) hypertension; Z99.81 Dependence on supplemental oxygen; Z93.0 Tracheostomy status; Z93.1 Gastrostomy status; Z88.0 Allergy status to penicillin; Z88.5 Allergy status to narcotic agent; Z91.040 Latex allergy status; Z98.41 Cataract extraction status, right eye; Z95.2 Presence of prosthetic heart valve; Z95.1 Presence of aortocoronary bypass graft; Z87.891 Personal history of nicotine dependence; Z80.42 Family history of malignant neoplasm of prostate; Z83.79 Family history of other diseases of the digestive system; Z79.01 Long term (current) use of anticoagulants; Z86.73 Personal history of transient ischemic attack (TIA), and cerebral infarction without residual deficits; Z86.718 Personal history of other venous thrombosis and embolism; I25.2 Old myocardial infarction; Z79.82 Long term (current) use of aspirin; Z79.899 Other long term (current) drug therapy

== ENCOUNTER 2019-03-05 00:03 | Inpatient (IN) | payer OTHER, MEDICAID ==
[~2019-03-05] VITALS: Ht 165.1 cm; Wt 58.1 kg
--- NOTE | ~2019-03-05 | EKG ---
[place], [place] ELECTROCARDIOGRAM REPORT NAME: JEN GAN UNIT #: [id number] ROOM: 409 DOCTOR: BRENDA DRAFT REPORT BIRTHDATE: [birth year] [facility] Test Date: 2019-03-05 Test Time: 00:48:37 Pat Name: JEN GAN Department: Room: 409 Gender: F Director Of Recruitment: April Mckeon : 1945 Requested By: VINAYAK ZAYAS Order Number: [id number] Reading MD: Johnathan Edwards MD Measurements Intervals [place] Rate: 69 P: -17 HI: 160 QRS: -27 QRSD: 87 T: 24 QT: 398 QTc: 427 Interpretive Statements Sinus rhythm Minimal voltage criteria for left ventricular hypertrophy Consider inferior infarct, old Electronically Signed On 03-05-2019 5:57:33 PDT by Johnathan Edwards MD CM:EKGRPT:ELECTROCARDIOGRAM REPORT [id number] VINAYAK GUTIERREZ DRAFT REPORT VINAYAK WORRELL
[~2019-03-05 00:03] MED LIST changes: +ASPIRIN81 M1 PEG; +BIOTENE ORALBAL42 G1 MM; +Bactroban Oint22 GM T
[2019-03-05 00:08] VITALS: BP 127/56
[2019-03-05 01:01] LABS: BASO # 0.1 10*3/uL (0.0-0.1); BASO % 0.5 % (0.0-1.0); EOS # 0.4 10*3/uL (0.0-0.4); EOS % 3.4 % (1.0-4.0); HEMATOCRIT 29.8 % (37.0-47.0); LYMPH # 1.6 10*3/uL (1.3-4.4); LYMPH % 15.2 % (27.0-41.0); MEAN CELL VOLUME 79.5 fl (81.0-99.0); MEAN CORPUSCULAR HGB CONC 30.2 g/dl (33.0-37.0); MEAN PLATELET VOLUME 9.4 fl (9.6-12.3); MONO # 1.2 10*3/uL (0.1-1.0); MONO % 11.9 % (3.0-9.0); NEUT % 68.8 % (47.0-73.0); PLATELET COUNT AUTOMATED 244 10*3/uL (130-400); RED BLOOD COUNT 3.75 10*6/uL (4.10-5.10); RED CELL DISTRI WIDTH 16.8 % (0-14.5); WHITE BLOOD COUNT 10.2 10*3/uL (4.8-10.8)
[2019-03-05 01:13] LABS: ACT PARTIAL THROMBO TIME 29.3 SECONDS (20.0-32.1)
[2019-03-05 01:14] VITALS: BP 132/58
[2019-03-05 01:18] LABS: ALBUMIN 3.2 gm/dl (3.1-4.5); ALKALINE PHOSPHATASE 94 U/L (45-117); BUN 27 mg/dl (7-24); CHLORIDE 107 mmol/L (98-107); CREATININE 0.69 mg/dL (0.55-1.02); LIPASE 193 U/L (73-393); POTASSIUM 4.2 mmol/L (3.5-5.1); SGOT/AST 21 IU/L (3-35); SGPT/ALT 22 U/L (12-78); SODIUM 141 mmol/L (136-145); TOTAL PROTEIN 7.3 gm/dL (6.4-8.2)
[2019-03-05 01:22] LABS: TROPONIN I < 0.015 ng/ml (<0.045)
[2019-03-05 01:22] LABS: BILIRUBIN NEGATIVE (NEGATIVE); BLOOD NEGATIVE (NEGATIVE); CLARITY CLEAR (CLEAR); COLOR YELLOW (YELLOW); GLUCOSE NEGATIVE (NEGATIVE); KETONE NEGATIVE (NEGATIVE); LEUKO ESTERASE NEGATIVE (NEGATIVE); NITRITE NEGATIVE (NEGATIVE); PH 7.5 (5.0-9.0); UROBILINOGEN 0.2 E.U./dl (0.2-1.0)
[2019-03-05 01:28] LABS: WBC 0-2 wbc/hpf (0-5)
[2019-03-05 01:29] LABS: BACTERIA TRACE; EPITHELIAL CELLS 0-2
[2019-03-05] MEDS ORDERED: REMERON15 M2 PEG (01:38)
[2019-03-05] MEDS ORDERED: BROVANA15 MCG/2 M INH (01:39)
[2019-03-05] MEDS ORDERED: PULMICORT RESP0.5 MG INH (01:39)
[2019-03-05 03:00] VITALS: BP 138/67
[2019-03-05] MEDS ORDERED: PHARMASSURE FO0.4 MG PEG (03:14)
[2019-03-05 12:00] VITALS: BP 135/65
[2019-03-05 16:00] VITALS: BP 109/77
[2019-03-05 20:00] VITALS: BP 131/64
[2019-03-06] VITALS: BP 105/58
[2019-03-06 06:02] LABS: BASO # 0.1 10*3/uL (0.0-0.1); BASO % 0.6 % (0.0-1.0); EOS # 0.4 10*3/uL (0.0-0.4); EOS % 4.6 % (1.0-4.0); HEMATOCRIT 26.9 % (37.0-47.0); LYMPH # 1.6 10*3/uL (1.3-4.4); MEAN CELL VOLUME 79.4 fl (81.0-99.0); MEAN CORPUSCULAR HGB 23.6 pg (27.0-31.0); MEAN CORPUSCULAR HGB CONC 29.7 g/dl (33.0-37.0); MEAN PLATELET VOLUME 9.9 fl (9.6-12.3); MONO % 11.8 % (3.0-9.0); NEUT # 5.6 10*3/uL (2.3-7.9); NEUT % 64.8 % (47.0-73.0); PLATELET COUNT AUTOMATED 234 10*3/uL (130-400); RED BLOOD COUNT 3.39 10*6/uL (4.10-5.10); RED CELL DISTRI WIDTH 16.9 % (0-14.5); WHITE BLOOD COUNT 8.6 10*3/uL (4.8-10.8)
[2019-03-06 08:00] VITALS: BP 121/54
[2019-03-06 12:00] VITALS: BP 121/65
[2019-03-06 16:00] VITALS: BP 121/65
[2019-03-06 20:00] VITALS: BP 130/57
[2019-03-07] VITALS: BP 141/52
[2019-03-07 07:03] LABS: BUN 25 mg/dl (7-24); CHLORIDE 109 mmol/L (98-107); CREATININE 0.67 mg/dL (0.55-1.02); POTASSIUM 4.4 mmol/L (3.5-5.1); SODIUM 138 mmol/L (136-145)
[2019-03-07 07:44] LABS: BASO # 0.1 10*3/uL (0.0-0.1); BASO % 0.6 % (0.0-1.0); EOS # 0.6 10*3/uL (0.0-0.4); EOS % 6.1 % (1.0-4.0); HEMATOCRIT 28.7 % (37.0-47.0); HEMOGLOBIN 8.7 g/dl (12.0-16.0); LYMPH # 1.5 10*3/uL (1.3-4.4); LYMPH % 15.7 % (27.0-41.0); MEAN CELL VOLUME 79.7 fl (81.0-99.0); MEAN CORPUSCULAR HGB 24.2 pg (27.0-31.0); MEAN CORPUSCULAR HGB CONC 30.3 g/dl (33.0-37.0); MEAN PLATELET VOLUME 9.1 fl (9.6-12.3); MONO # 1.1 10*3/uL (0.1-1.0); MONO % 12.2 % (3.0-9.0); NEUT # 6.1 10*3/uL (2.3-7.9); NEUT % 65.2 % (47.0-73.0); PLATELET COUNT AUTOMATED 239 10*3/uL (130-400); RED CELL DISTRI WIDTH 16.8 % (0-14.5); WHITE BLOOD COUNT 9.3 10*3/uL (4.8-10.8)
[2019-03-07 08:00] VITALS: BP 136/63
[2019-03-07 12:00] VITALS: BP 151/55
== END 2019-03-07 15:16 | disposition hospice, home (50) | DRG 378 ==
LOC: ED 00:03 → 4E 01:48 → EDHOLD 01:48 → 4E 02:10
PROVIDERS: Internal Medicine; Physician Assistant; Student in an Organized Health Care Education/Training Program; ADMIT Emergency Medicine
DX: K92.2 Gastrointestinal hemorrhage, unspecified (principal); D68.9 Coagulation defect, unspecified; E44.0 Moderate protein-calorie malnutrition; J96.11 Chronic respiratory failure with hypoxia; E83.41 Hypermagnesemia; D64.9 Anemia, unspecified; E78.5 Hyperlipidemia, unspecified; I48.2 Chronic atrial fibrillation; K21.9 Gastro-esophageal reflux disease without esophagitis; I25.10 Atherosclerotic heart disease of native coronary artery without angina pectoris; F32.9 Major depressive disorder, single episode, unspecified; J44.9 Chronic obstructive pulmonary disease, unspecified; Z66 Do not resuscitate; Z51.5 Encounter for palliative care; M81.0 Age-related osteoporosis without current pathological fracture; I10 Essential (primary) hypertension; Z99.81 Dependence on supplemental oxygen; Z93.0 Tracheostomy status; Z93.1 Gastrostomy status; Z88.0 Allergy status to penicillin; Z88.5 Allergy status to narcotic agent; Z91.040 Latex allergy status; Z98.41 Cataract extraction status, right eye; Z95.2 Presence of prosthetic heart valve; Z95.1 Presence of aortocoronary bypass graft; Z95.828 Presence of other vascular implants and grafts; Z87.891 Personal history of nicotine dependence; Z83.79 Family history of other diseases of the digestive system; Z80.42 Family history of malignant neoplasm of prostate; Z86.73 Personal history of transient ischemic attack (TIA), and cerebral infarction without residual deficits; Z86.718 Personal history of other venous thrombosis and embolism; I25.2 Old myocardial infarction; Z86.14 Personal history of Methicillin resistant Staphylococcus aureus infection; Z79.899 Other long term (current) drug therapy; Z68.21 Body mass index [BMI] 21.0-21.9, adult